=== PATIENT | female | born 1940 | race Caucasian/White ===

== ENCOUNTER 2019-10-10 10:33 | Outpatient (CLI) | payer MEDICARE, BC, SELFPAY ==
--- NOTE | 2019-10-10 10:47 | US_ITS ---
WS: [id number] ULTRASOUND BREAST RIGHT TECHNIQUE: Ultrasound right breast focused area of concern. CLINICAL INFORMATION: 6 MO F/U RT BREAST MASS COMPARISON: Mammogram April 19, 2019 and ultrasound April 19, 2019 FINDINGS: 6 month follow-up. Ultrasound right breast at the 11:00 to 1:00 position. Again seen are multiple tin y hypoechoic cystic appearing lesions. Previously described dominant complex cyst at the 12:30 positi on is no longer visualized today. A few tiny subcentimeter benign-appearing cysts. Surgical scar is n oted. No suspicious lesions. No lesions to target for biopsy. US/US breast RT limited* [id number] IMPRESSION: BI-RADS 2 benign FOLLOW UP: 1 year Recommend return to annual screening mammography
== END 2019-10-10 10:34 | disposition home or self-care (01) ==
LOC: RAD 10:42
PROVIDERS: Family Provider Family Medicine; PCP Family Medicine; Visit Provider Family Medicine
DX: N63.10 Unspecified lump in the right breast, unspecified quadrant (principal)
CPT/HCPCS: 76642

== ENCOUNTER 2020-03-30 19:36 | Inpatient (IN) | payer MEDICARE, BC, SELFPAY ==
--- NOTE | 2020-03-30 19:40 | XRR_ITS ---
PROCEDURE INFORMATION: Exam: XR Chest, 1 View Exam date and time: 03/30/2020 8:15 PM Age: 79 years old Clinical indication: Other: Dizzy; Additional info: Syncope today TECHNIQUE: Imaging protocol: XR of the chest Views: Frontal portable upright view of the chest. COMPARISON: CR Chest 1 [place] [id number] 05/29/2019 7:48 PM FINDINGS: Lungs: The pulmonary vasculature is stable. Coarse bilateral central pulmonary markings with mild architectural distortion. Mild left basilar pulmonary subsegmental atelectasis. The lungs are otherwise peripherally clear bilaterally. Pleural space: No pleural effusion. No pneumothorax. Heart/Mediastinum: The heart is normal in size and contour. Mediastinum: Stable. Vasculature: Mild tortuosity of the descending thoracic aorta. Bones/joints: Moderate aortic arch and descending thoracic aortic atherosclerotic calcification without ectasia. Severe left glenohumeral joint primary osteoarthritis. XR/XR chest 1V portable [id number] IMPRESSION: Mild left basilar pulmonary subsegmental atelectasis.
--- NOTE | 2020-03-30 19:41 | ECG_ITS ---
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 Measurements Intervals [place] Rate: 113 P: 48 MN: 140 QRS: 9 QRSD: 97 T: -14 QT: 370 QTc: 509 Interpretive Statements SINUS TACHYCARDIA WITH FREQUENT SUPRAVENTRICULAR PREMATURE COMPLEXES INFERIOR MYOCARDIAL INFARCTION , OF INDETERMINATE AGE [40+ ms Q WAVE AND/OR ST/T ABNORMALITY IN II/aVF] Compared to ECG 05/29/2019 22:30:32 Myocardial infarct finding now present T-wave abnormality no longer present Electronically Signed On 03-30-2020 20:34:31 CDT by Estee Champagne M.D. [id number]
[2020-03-30 19:46] VITALS: BP 185/127; PULSE 109; RESP 20; TEMP 37.6; O2SAT 94; BMI 24.9
--- NOTE | 2020-03-30 19:47 | CTR_ITS ---
PROCEDURE INFORMATION: Exam: CT Abdomen And Pelvis With Contrast Exam date and time: 03/30/2020 8:49 PM Age: 79 years old Clinical indication: Abdominal pain; Prior surgery; Surgery type: Gb, appy, ovary, hyst, colon; Patient HX: PT has bruising all over body from multiple falls; Additional info: Abdominal pain/rectal bleeding TECHNIQUE: Imaging protocol: Computed tomography of the abdomen and pelvis with intravenous contrast. Radiation optimization: All CT scans at this facility use at least one of these dose optimization techniques: automated exposure control; mA and/or kV adjustment per patient size (includes targeted exams where dose is matched to clinical indication); or iterative reconstruction. Contrast material: VISI 320; Contrast volume: 95 ml; Contrast route: INTRAVENOUS (IV); COMPARISON: CT abdomen pelvis w con* [id number] 02/20/2019 1:38 PM RADIATION DOSE METRICS: Total DLP (mGy-cm): 794 FINDINGS: Liver: Normal. No mass. Gallbladder and bile ducts: Cholecystectomy. Pancreas: Normal. No ductal dilation. Spleen: Normal. No splenomegaly. Adrenals: Normal. No mass. Kidneys and ureters: Left kidney benign cysts, no follow-up advised. Stomach and bowel: Descending colon wall thickening with some surrounding edema consistent with colitis. Diverticulosis without diverticulitis. Appendix: No evidence of appendicitis. Intraperitoneal space: Unremarkable. No free air. No significant fluid collection. Vasculature: Unremarkable. No abdominal aortic aneurysm. Lymph nodes: Unremarkable. No enlarged lymph nodes. Bladder: Unremarkable as visualized. Reproductive: Unremarkable as visualized. Bones/joints: Unremarkable. No acute fracture. Soft tissues: Unremarkable. CT/CT abdomen pelvis w con* [id number] IMPRESSION: 1. Descending colon colitis 2. Cholecystectomy. 3. Left kidney benign cysts, no follow-up advised. 4. Diverticulosis without diverticulitis. COMMENTS: Consistent with the [employer]'s Incidental Findings Committee white paper (J Am Geovanny Radiol 2018): Any incidental renal lesion less than 1.0 cm or classified as too small to characterize, or any incidental cystic renal lesion characterized as simple-appearing, is likely benign. No follow-up imaging is recommended for these lesions per consensus recommendations based on imaging criteria. Radiation Dose CTDIVOL = (mGy): DLP = 794 (mGy-cm)
--- NOTE | 2020-03-30 19:47 | CTR_ITS ---
PROCEDURE INFORMATION: Exam: CT Head Without Contrast Exam date and time: 03/30/2020 8:50 PM Age: 79 years old Clinical indication: Injury or trauma; Fall; Additional info: Fall/injury TECHNIQUE: Imaging protocol: Computed tomography of the head without contrast. Radiation optimization: All CT scans at this facility use at least one of these dose optimization techniques: automated exposure control; mA and/or kV adjustment per patient size (includes targeted exams where dose is matched to clinical indication); or iterative reconstruction. COMPARISON: CT head wo con* [id number] 05/29/2019 7:46 PM RADIATION DOSE METRICS: Total DLP (mGy-cm): 818.48 FINDINGS: Brain: Moderate diffuse white matter disease likely reflecting chronic microvascular ischemic changes. Ventricles: Normal. No ventriculomegaly. Bones/joints: Unremarkable. No acute fracture. Sinuses: Visualized sinuses are unremarkable. No fluid levels. Mastoid air cells: Visualized mastoid air cells are well aerated. Soft tissues: Right frontal scalp soft tissue swelling. CT/CT head wo con* [id number] IMPRESSION: 1. Negative for intracranial hemorrhage or mass effect. 2. Moderate diffuse white matter disease likely reflecting chronic microvascular ischemic changes. 3. Right frontal scalp soft tissue swelling. Radiation Dose CTDIVOL = (mGy): DLP = 818.48 (mGy-cm)
[2020-03-30 20:07] LABS: Basophils # 0.1 10^3/uL (0.0-0.1); Basophils % 0.3 %; Eosinophils # 0.1 10^3/uL (0.0-0.8); Eosinophils % 0.4 %; Hematocrit 30.8 % (37.0-47.0); Hemoglobin 10.6 g/dL (11.5-15.3); Lymphocytes # 1.3 10^3/uL (0.8-4.8); Lymphocytes % 7.6 %; Mean Corpuscular HGB Conc 34.4 g/dL (30.0-36.0); Mean Corpuscular Hemoglobin 31.3 pg (28.0-34.0); Mean Corpuscular Volume 90.9 fL (81-99); Mean Platelet Volume 10.3 fL (7.4-10.4); Monocytes # 1.2 10^3/uL (0.2-0.9); Monocytes % 7.1 %; Neutrophils # 13.98 10^3/uL (1.8-7.7); Neutrophils % 84.2 %; Nucleated Red Blood Cells % 0 %; Platelet Count 302 10^3/cmm (130-400); Red Blood Count 3.39 10^6/uL (4.1-5.3); Red Cell Distribution Width 13.5 % (12.1-15.1); White Blood Count 16.6 10^3/uL (4.0-10.0)
[2020-03-30 20:18] LABS: Alanine Aminotransferase 13 U/L (0-33); Albumin Level 4.4 g/dL (3.5-5.2); Alkaline Phosphatase 88 IU/L (35-105); Anion Gap 17.6 (5-19); Aspartate Amino Transferase 27 U/L (0-32); Blood Urea Nitrogen 17 mg/dL (8-23); Calcium 9.2 mg/dL (8.5-10.5); Carbon Dioxide 30 mmol/L (22-29); Chloride 89 mmol/L (98-107); Glucose 142 mg/dL (65-115); Magnesium 1.6 mg/dL (1.7-2.3); Osmolality Calculated 277 mOsm/kg (285-295); Sodium 134 mmol/L (136-145); Total Bilirubin 1.3 mg/dL (0.15-1.2); Total Protein 6.4 g/dL (6.6-8.7)
[2020-03-30 20:20] LABS: Troponin(5th) Baseline 28 ng/L (0-10)
[2020-03-30 20:25] LABS: Potassium 2.6 mmol/L (3.5-5.1)
[2020-03-30 20:34] LABS: INR 1.05 (0.8-1.2)
[2020-03-30 20:35] LABS: Partial Thromboplastin Time 30.9 SECONDS (23.9-36.7)
--- NOTE | 2020-03-30 20:48 | ED_ITS ---
HPI - Syncope General: Chief Complaint: Syncope Stated Complaint: SYNCOPAL EPISODE Time Seen by Provider: 03/30/20 19:39 Source: patient, family and EMS Mode of arrival: EMS Limitations: no limitations History of Present Illness: HPI narrative: Mrs. Malin is a 79-year-old female who comes in with multiple syncopal episodes. The patient has a history of orthostatic hypotension and at times in her life she has had multiple falls every time she tries to get up. Patient's has had numerous syncopal episodes the past 7 days according to her and her . Orthostatic blood pressures were checked by EMS and found to drop from 172 systolic down to 106. The patient has bruises in multiple areas including her face. The other other issues the patient complains of at this time is a some abdominal pain and she is also had some rectal bleeding. She denies any melena, hematemesis or chest pain or shortness of breath. Patient takes 2 different medications for her ortho static hypotension but she is not received any evaluation formally for this recently. Associated symptoms: Reports abdominal pain; Deny chest pain, fever(s), headache(s), nausea or vertigo Review of Systems Const: Denies: fever(s), chills, body aches, fatigue, malaise or diaphoresis Eyes: Denies: change in vision, blurry vision, blind spots, photophobia, eye discharge or eye redness ENMT: Denies: throat pain, odynophagia, hoarseness, swelling of lips/tongue, oral sores, ear or mastoid pain, ear discharge, change in hearing or nasal discharge Card: Reports: syncope; Denies: chest pain, palpitations, irregular heart rhythm, edema, pre-syncope, dyspnea on exertion or orthopnea Resp: Denies: dyspnea, productive cough, non-productive cough, wheezing, hemoptysis or chest congestion GI: Reports: abdominal pain and hematochezia; Denies: nausea, vomiting, hematemesis, coffee ground emesis, heartburn, diarrhea, constipation, GI cramping or melena : Denies: flank pain, dysuria, urinary frequency, urinary urgency or hematuria Musc: Denies: neck pain, back pain, extremity pain, extremity swelling, joint pain, joint swelling, joint redness, joint warmth or joint stiffness Skin/Breast: Denies: rash, pruritus, erythema, skin tenderness or jaundice Neuro: Denies: headache(s), numbness in extremities, weakness in extremities, sensory changes, lack of coordination, difficulty walking, dizziness, vertigo, confusion, Slurred speech present or seizure-like activity Asim/Lymph: Denies: easy bruising, easy bleeding, petechiae, purpura or enlarged lymph nodes All/Imm: Denies: urticaria, throat swelling, tongue swelling, facial swelling or acute wheezing PFSH ED PFSH: Medical History (Updated 03/30/20 @ 22:46 by Darline Aquino) Anxiety Hypertension Orthostatic syncope Seizures Vitamin D deficiency Surgical History H/O knee surgery H/O shoulder surgery H/O: hysterectomy S/P appendectomy S/P cholecystectomy Physical Exam Const: COMMON NORMALS: no acute distress, patient oriented x3, no limitations, healthy appearing and well nourished GENERAL APPEARANCE: cooperative, well kempt and well developed HENMT: COMMON NORMALS: normocephalic, atraumatic, external ears normal, EAC's normal and Normal external nose present HEAD & SCALP: normal to inspection, normocephalic and atraumatic FACE & SINUS: normal facial exam and face symmetric NOSE: Normal external nose present and Normal nares present EXTERNAL EAR: Yes external ears normal EXTERNAL AUDITORY CANAL: EAC's normal MOUTH: Normal oral and palatal mucosa present, lip normal and tongue normal Eye: COMMON NORMALS: Equal, round and reactive pupils present and conjunctivae normal GENERAL EYE: appearance normal, both eyes and all related structures ALIGNMENT: Yes alignment normal PERIORBITAL: periorbital findings normal EYELID: eyelids normal CONJUNCTIVA: Yes conjunctivae normal SCLERA: sclerae normal PUPIL: Yes Equal, round and reactive pupils present Neck/C-Spine: COMMON NORMALS: full ROM, no lymphadenopathy, supple, no meningeal signs and no JVD GENERAL: Yes normal visual inspection and Yes trachea midline Chest: COMMONS NORMALS: normal inspection of the chest and normal palpation of entire chest wall Resp: COMMON NORMALS: normal respiratory effort, No retractions and No use of accessory muscles EFFORT & INSPECTION: Yes able to speak in complete sentences and Yes symmetric chest movement AUSCULTATION: no crackles, no rales, no rhonchi and no wheezes Cardio: COMMON NORMALS: no JVD, regular rate, regular rhythm, S1 normal heart sound present and S2 normal heart sound present RATE: regular rate RHYTHM: regular rhythm HEART SOUNDS: S1 normal heart sound present, S2 normal heart sound present, no click, no gallops, no murmurs, no rubs and abnormal split S2 GI: COMMON NORMALS: Soft to palpation and No hepatosplenomegaly present PALPATION: Yes Soft to palpation, No Tenderness to palpation present (GI), No Guarding due to palpation present (GI), No Rigid due to palpation, Yes No hepatosplenomegaly present, No Hernia present, No Palpable mass present and No Pulsatile mass present : COMMON NORMALS: Yes no CVA tenderness BLADDER/KIDNEY EXAM: Yes no CVA tenderness EXTERNAL FEMALE EXAM: No Hernia present Back/Pelvis: COMMON NORMALS: no CVA tenderness, thoracic and lumbar spine normal to inspection, no thoracic nor lumbar tenderness and thoraco-lumbar ROM normal Extremity: COMMON NORMALS: normal to inspection, full ROM, capillary refill normal, no joint enlargement, no clubbing, cyanosis or edema and no calf tenderness Neuro: COMMON NORMALS: patient oriented x3, CN's II-XII intact bilaterally, moves all extremities, no focal motor deficits and no sensory deficits noted MENINGEAL SIGNS: Yes no meningeal signs SPEECH: speech normal Psych: COMMON NORMALS: mental status grossly normal, Normal thought process present, cooperative, normal affect, speech normal and activity/motor behavior normal APPEARANCE: Yes well kempt SPEECH: Yes normal speech THOUGHT PROCESS: Normal thought process present Skin: COMMON NORMALS: no rashes or lesions noted, turgor normal, no jaundice, no petechiae and no mottling NARRATIVE SKIN EXAM: Bruising noted throughout multiple stages of healing GENERAL SKIN EXAM: no rashes or lesions noted and turgor normal Course Vital Signs: Vital signs: Vital Signs Temperature 99.7 F H 03/30/20 19:46 Pulse Rate 110 H 03/30/20 21:26 Respiratory Rate 16 03/30/20 21:26 Blood Pressure 168/109 03/30/20 21:26 Pulse Oximetry 96 03/30/20 21:26 MDM - Syncope MDM Narrative: Medical decision making narrative: Patient's case was reviewed with Dr. Ordonez. He agrees to see the patient and admit. Patient is currently doing well on her IV infusion of fluids. Further care be dictated on an inpatient basis. Lab Data: Attestation: I reviewed the patient's lab results. Labs: Lab Results 03/30/20 03/30/20 03/30/20 Range/Units 18:50 18:50 18:50 WBC 16.6 H (4.0-10.0) 10^3/ uL RBC 3.39 L (4.1-5.3) 10^6/u L Hgb 10.6 L (11.5-15.3) g/dL Hct 30.8 L (37.0-47.0) % MCV 90.9 (81-99) fL MCH 31.3 (28.0-34.0) pg MCHC 34.4 (30.0-36.0) g/dL RDW 13.5 (12.1-15.1) % Plt Count 302 (130-400) 10^3/c mm MPV 10.3 (7.4-10.4) fL Neut % (Auto) 84.2 % Lymph % (Auto) 7.6 % Emmet % (Auto) 7.1 % Eos % (Auto) 0.4 % Baso % (Auto) 0.3 % Neut # (Auto) 13.98 H (1.8-7.7) 10^3/u L Lymph # (Auto) 1.3 (0.8-4.8) 10^3/u L Emmet # (Auto) 1.2 H (0.2-0.9) 10^3/u L Eos # (Auto) 0.1 (0.0-0.8) 10^3/u L Baso # (Auto) 0.1 (0.0-0.1) 10^3/u L Nucleated RBC % (a uto) 0 % Nucleated RBCs # 0.0 /100WBC PT (10.5-13.3) SECO NDS INR (0.8-1.2) APTT (23.9-36.7) SECO NDS Sodium 134 L (136-145) mmol/L Potassium 2.6 L* (3.5-5.1) mmol/L Chloride 89 L (98-107) mmol/L Carbon Dioxide 30 H (22-29) mmol/L Anion Gap 17.6 (5-19) BUN 17 (8-23) mg/dL Creatinine 1.1 H (0.5-0.9) mg/dL GFR Calculation Not Reportable Glucose 142 H (65-115) mg/dL Calculated Osmolal ity 277 L (285-295) mOsm/k g Lactic Acid (0.5-2.2) mmol/L Calcium 9.2 (8.5-10.5) mg/dL Magnesium 1.6 L (1.7-2.3) mg/dL Total Bilirubin 1.3 H (0.15-1.2) mg/dL AST 27 (0-32) U/L ALT 13 (0-33) U/L Alkaline Phosphata se 88 (35-105) IU/L Troponin T Baselin e 28 H (0-10) ng/L Troponin T 120 Min [place] (0-10) ng/L Delta Troponin T (0-10) ABS# Total Protein 6.4 L (6.6-8.7) g/dL Albumin 4.4 (3.5-5.2) g/dL Globulin 2.0 (1.3-4.6) g/dL Urine Color (Yellow) Urine Appearance (CLEAR) Urine pH (5-7) Ur Specific Gravit y (1.005-1.030) Urine Protein (Negative) Urine Glucose (UA) (Normal) Urine Ketones (Negative) Urine Blood (Negative) Urine Nitrate (Negative) Urine Bilirubin (NEGATIVE) Urine Urobilinogen (Negative) mg/dL Ur Leukocyte Jody ase (Negative) Urine RBC (0-2) /hpf Urine WBC (0-5) /hpf Ur Squamous Epith Cells (0-5) Amorphous Sediment Urine Bacteria (NONE) Blood Type Rho(D) Type Antibody Screen 03/30/20 03/30/20 03/30/20 Range/Units 18:50 20:10 20:29 WBC (4.0-10.0) 10^3/ uL RBC (4.1-5.3) 10^6/u L Hgb (11.5-15.3) g/dL Hct (37.0-47.0) % MCV (81-99) fL MCH (28.0-34.0) pg MCHC (30.0-36.0) g/dL RDW (12.1-15.1) % Plt Count (130-400) 10^3/c mm MPV (7.4-10.4) fL Neut % (Auto) % Lymph % (Auto) % Emmet % (Auto) % Eos % (Auto) % Baso % (Auto) % Neut # (Auto) (1.8-7.7) 10^3/u L Lymph # (Auto) (0.8-4.8) 10^3/u L Emmet # (Auto) (0.2-0.9) 10^3/u L Eos # (Auto) (0.0-0.8) 10^3/u L Baso # (Auto) (0.0-0.1) 10^3/u L Nucleated RBC % (a uto) % Nucleated RBCs # /100WBC PT 14.00 H (10.5-13.3) SECO NDS INR 1.05 (0.8-1.2) APTT 30.9 (23.9-36.7) SECO NDS Sodium (136-145) mmol/L Potassium (3.5-5.1) mmol/L Chloride (98-107) mmol/L Carbon Dioxide (22-29) mmol/L Anion Gap (5-19) BUN (8-23) mg/dL Creatinine (0.5-0.9) mg/dL GFR Calculation Glucose (65-115) mg/dL Calculated Osmolal ity (285-295) mOsm/k g Lactic Acid (0.5-2.2) mmol/L Calcium (8.5-10.5) mg/dL Magnesium (1.7-2.3) mg/dL Total Bilirubin (0.15-1.2) mg/dL AST (0-32) U/L ALT (0-33) U/L Alkaline Phosphata se (35-105) IU/L Troponin T Baselin e (0-10) ng/L Troponin T 120 Min [place] (0-10) ng/L Delta Troponin T (0-10) ABS# Total Protein (6.6-8.7) g/dL Albumin (3.5-5.2) g/dL Globulin (1.3-4.6) g/dL Urine Color Yellow (Yellow) Urine Appearance Clear (CLEAR) Urine pH 7 (5-7) Ur Specific Gravit y 1.010 (1.005-1.030) Urine Protein Neg (Negative) Urine Glucose (UA) Norm (Normal) Urine Ketones Negative (Negative) Urine Blood 3+ H (Negative) Urine Nitrate Negative (Negative) Urine Bilirubin Neg (NEGATIVE) Urine Urobilinogen Norm (Negative) mg/dL Ur Leukocyte Jody ase 1+ H (Negative) Urine RBC 0-4 H (0-2) /hpf Urine WBC 10-15 H (0-5) /hpf Ur Squamous Epith Cells 0-4 H (0-5) Amorphous Sediment Not Reportable Urine Bacteria Trace (NONE) Blood Type O Positive Rho(D) Type Positive Antibody Screen Negative 03/30/20 03/30/20 Range/Units 21:30 22:00 WBC (4.0-10.0) 10^3/ uL RBC (4.1-5.3) 10^6/u L Hgb (11.5-15.3) g/dL Hct (37.0-47.0) % MCV (81-99) fL MCH (28.0-34.0) pg MCHC (30.0-36.0) g/dL RDW (12.1-15.1) % Plt Count (130-400) 10^3/c mm MPV (7.4-10.4) fL Neut % (Auto) % Lymph % (Auto) % Emmet % (Auto) % Eos % (Auto) % Baso % (Auto) % Neut # (Auto) (1.8-7.7) 10^3/u L Lymph # (Auto) (0.8-4.8) 10^3/u L Emmet # (Auto) (0.2-0.9) 10^3/u L Eos # (Auto) (0.0-0.8) 10^3/u L Baso # (Auto) (0.0-0.1) 10^3/u L Nucleated RBC % (a uto) % Nucleated RBCs # /100WBC PT (10.5-13.3) SECO NDS INR (0.8-1.2) APTT (23.9-36.7) SECO NDS Sodium (136-145) mmol/L Potassium (3.5-5.1) mmol/L Chloride (98-107) mmol/L Carbon Dioxide (22-29) mmol/L Anion Gap (5-19) BUN (8-23) mg/dL Creatinine (0.5-0.9) mg/dL GFR Calculation Glucose (65-115) mg/dL Calculated Osmolal ity (285-295) mOsm/k g Lactic Acid 1.7 (0.5-2.2) mmol/L Calcium (8.5-10.5) mg/dL Magnesium (1.7-2.3) mg/dL Total Bilirubin (0.15-1.2) mg/dL AST (0-32) U/L ALT (0-33) U/L Alkaline Phosphata se (35-105) IU/L Troponin T Baselin e (0-10) ng/L Troponin T 120 Min [place] 25.46 H (0-10) ng/L Delta Troponin T -2.54 L (0-10) ABS# Total Protein (6.6-8.7) g/dL Albumin (3.5-5.2) g/dL Globulin (1.3-4.6) g/dL Urine Color (Yellow) Urine Appearance (CLEAR) Urine pH (5-7) Ur Specific Gravit y (1.005-1.030) Urine Protein (Negative) Urine Glucose (UA) (Normal) Urine Ketones (Negative) Urine Blood (Negative) Urine Nitrate (Negative) Urine Bilirubin (NEGATIVE) Urine Urobilinogen (Negative) mg/dL Ur Leukocyte Jody ase (Negative) Urine RBC (0-2) /hpf Urine WBC (0-5) /hpf Ur Squamous Epith Cells (0-5) Amorphous Sediment Urine Bacteria (NONE) Blood Type Rho(D) Type Antibody Screen Imaging Data^: CXR: My impression: No acute cardiopulmonary findings. CT Head: Radiologist's impression: [address] [place] [address] CT Scan Report Signed Patient: Leatha Malin Unit #: [id number] : 1940 Age/Sex: 79 / F ADM Date: 03/30/20 Loc: ER Room/Bed: Attending Dr: Ordering Provider/Ordering MD: Darline Aquino DO Date of Service: 03/30/20 Procedure(s): CT head wo con* [id number] Accession Number(s): [id number] Report Number: [id number] PROCEDURE INFORMATION: Exam: CT Head Without Contrast Exam date and time: 03/30/2020 8:50 PM Age: 79 years old Clinical indication: Injury or trauma; Fall; Additional info: Fall/injury TECHNIQUE: Imaging protocol: Computed tomography of the head without contrast. Radiation optimization: All CT scans at this facility use at least one of these dose optimization techniques: automated exposure control; mA and/or kV adjustment per patient size (includes targeted exams where dose is matched to clinical indication); or iterative reconstruction. COMPARISON: CT head wo con* [id number] 05/29/2019 7:46 PM RADIATION DOSE METRICS: Total DLP (mGy-cm): 818.48 FINDINGS: Brain: Moderate diffuse white matter disease likely reflecting chronic microvascular ischemic changes. Ventricles: Normal. No ventriculomegaly. Bones/joints: Unremarkable. No acute fracture. Sinuses: Visualized sinuses are unremarkable. No fluid levels. Mastoid air cells: Visualized mastoid air cells are well aerated. Soft tissues: Right frontal scalp soft tissue swelling. CT/CT head wo con* [id number] IMPRESSION: 1. Negative for intracranial hemorrhage or mass effect. 2. Moderate diffuse white matter disease likely reflecting chronic microvascular ischemic changes. 3. Right frontal scalp soft tissue swelling. Radiation Dose CTDIVOL = (mGy): DLP = 818.48 (mGy-cm) Dictated By: Edvin Navarrete MD Signed By: Edvin Navarrete MD Signed Date/Time: 03/30/202201 DD/ 00 CT Abd/Pel: Radiologist's impression: [address] [address] [address] Scan Report Signed Patient: Leatha Malin Unit #: [id number] : 1940 Age/Sex: 79 / F ADM Date: 03/30/20 Loc: ER Room/Bed: Attending Dr: Ordering Provider/Ordering MD: Darline Aquino DO Date of Service: 03/30/20 Procedure(s): CT abdomen pelvis w con* [id number] Accession Number(s): [id number] Report Number: [id number] PROCEDURE INFORMATION: Exam: CT Abdomen And Pelvis With Contrast Exam date and time: 03/30/2020 8:49 PM Age: 79 years old Clinical indication: Abdominal pain; Prior surgery; Surgery type: Gb, appy, ovary, hyst, colon; Patient HX: PT has bruising all over body from multiple falls; Additional info: Abdominal pain/rectal bleeding TECHNIQUE: Imaging protocol: Computed tomography of the abdomen and pelvis with intravenous contrast. Radiation optimization: All CT scans at this facility use at least one of these dose optimization techniques: automated exposure control; mA and/or kV adjustment per patient size (includes targeted exams where dose is matched to clinical indication); or iterative reconstruction. Contrast material: VISI 320; Contrast volume: 95 ml; Contrast route: INTRAVENOUS (IV); COMPARISON: CT abdomen pelvis w con* [id number] 02/20/2019 1:38 PM RADIATION DOSE METRICS: Total DLP (mGy-cm): 794 FINDINGS: Liver: Normal. No mass. Gallbladder and bile ducts: Cholecystectomy. Pancreas: Normal. No ductal dilation. Spleen: Normal. No splenomegaly. Adrenals: Normal. No mass. Kidneys and ureters: Left kidney benign cysts, no follow-up advised. Stomach and bowel: Descending colon wall thickening with some surrounding edema consistent with colitis. Diverticulosis without diverticulitis. Appendix: No evidence of appendicitis. Intraperitoneal space: Unremarkable. No free air. No significant fluid collection. Vasculature: Unremarkable. No abdominal aortic aneurysm. Lymph nodes: Unremarkable. No enlarged lymph nodes. Bladder: Unremarkable as visualized. Reproductive: Unremarkable as visualized. Bones/joints: Unremarkable. No acute fracture. Soft tissues: Unremarkable. CT/CT abdomen pelvis w con* [id number] IMPRESSION: 1. Descending colon colitis 2. Cholecystectomy. 3. Left kidney benign cysts, no follow-up advised. 4. Diverticulosis without diverticulitis. COMMENTS: Consistent with the [employer]'s Incidental Findings Committee white paper (J Am Geovanny Radiol 2018): Any incidental renal lesion less than 1.0 cm or classified as too small to characterize, or any incidental cystic renal lesion characterized as simple-appearing, is likely benign. No follow-up imaging is recommended for these lesions per consensus recommendations based on imaging criteria. Radiation Dose CTDIVOL = (mGy): DLP = 794 (mGy-cm) Dictated By: Edvin Navarrete MD Signed By: Edvin Navarrete MD Signed Date/Time: 03/30/202205 DD/ 03 EKG Data^: EKG 1: Attestation: I personally reviewed and interpreted this EKG as follows: EKG interpretation date: 03/30/20 EKG interpretation time: 20:34 Interpretation: Multifocal atrial tachycardia with a heart rate of 113, interventricular conduction delay, Discharge Plan Discharge Patient Disposition: Admitted As Inpatient Clinical Impression: Orthostatic syncope, Orthostasis, Colitis Condition: Stable Referrals: Demarcus Gallego Jr, MD [Primary Care Provider] - Coding Level of Care Code ED Project Reservoir Engineer for Chg Fwd Exam Comprehensive
[2020-03-30] MEDS: hydrocortisone 100 mg/2 mL SDV IVP (21:01)
[2020-03-30] MEDS: sodium chloride 0.9% 1,000 ML 999 ML IV (21:04)
[2020-03-30] MEDS: magnesium sulfate premix 2 GM/50 ML PIGGYBACK IV (21:04)
[2020-03-30] MEDS: potassium chloride premix 40 MEQ/100 ML PREMIX 25 MEQ IV (21:04)
[2020-03-30 21:06] LABS: Bilirubin Urine Neg (NEGATIVE); Blood Urine 3+ (Negative); Glucose Urine UA Norm (Normal); Ketones Urine Negative (Negative); Leukocyte Esterase Urine 1+ (Negative); Nitrate Urine Negative (Negative); Protein Urine Neg (Negative); Urine Appearance Clear (CLEAR); Urine Color Yellow (Yellow); Urobilinogen Urine Norm (Negative); pH Urine 7 (5-7)
[2020-03-30] MEDS: potassium chloride ER 10 mEq Tablet 40 MEQ PO (21:07)
[2020-03-30 21:10] LABS: Bacteria Urine TRACE; RBC Urine 0-4 /hpf (0-2); Squamous Epithelial Cell Urine 0-4 (0-5)
[2020-03-30 21:11] LABS: Add Urine Culture? No
[2020-03-30 21:26] VITALS: BP 168/109; PULSE 110; RESP 16; O2SAT 96
--- NOTE | 2020-03-30 21:41 | ECG_ITS ---
[facility] Test Date: 2020-03-30 Pat Name: Leatha Malin Department: Room: Gender: Female Insurance Claims Analyst: : 1940 Requested By: Darline Leahy Order Number: [id number] Daylin MD: Kofi Collado M.D. Measurements Intervals [place] Rate: 111 P: 38 ID: [id number] QRS: 3 QRSD: 92 T: -21 QT: 321 QTc: 437 Interpretive Statements SINUS TACHYCARDIA WITH OCCASIONAL VENTRICULAR PREMATURE COMPLEXES INFERIOR MYOCARDIAL INFARCTION , OF INDETERMINATE AGE [40+ ms Q WAVE AND/OR ST/T ABNORMALITY IN II/aVF] Compared to ECG 03/30/2020 20:34:19 Ventricular premature complex(es) now present Myocardial infarct finding still present Electronically Signed On 03-31-2020 20:44:24 CDT by Kofi Collado M.D. [email or web address]
[2020-03-30] MEDS: iodixanol 320 mg/mL 100mL Btl IV (21:48)
--- NOTE | 2020-03-30 22:22 | PM.HP ---
Providers/Chief Complaint Primary Care Provider: Demarcus Gallego Jr, MD Chief Complaint: SYNCOPAL EPISODE History of Present Illness Leatha Malin is a 79 year old female who has history of recurrent orthostasis, multiple falls in the past came in because of syncopal events. is at bedside who is stating that her syncopal event started about 3 years ago and no diagnosis has been made yet however she is on fludrocortisone and midodrine. She has had 7-10 episodes of syncopal events in last 48 hours, she has multiple bruises all over her face upper and lower extremities and left hip area. Patient is stating that she did not experience any nausea, vomiting, chest discomfort prodromal symptoms, her syncopal events happen whenever she tries to get up from her supine or sitting position. noticed excessive shaking before she passed out, her shaking subsides whenever she falls on the ground, no tongue biting or frothing noticed, occasional urinary/fecal incontinence also noted. In the past she has been seen by neurologist who discontinued her antiepileptic. She was discharged from the [facility] yesterday where she was evaluated for syncopal event as well as per the no echo was obtained and she was discharged home without change in her medications. As soon as patient got home she started having syncopal events and that is why she came to the [facility]. Diagnosis in the ER revealed hypertension, is stating he asked her to take 5 of Midrin today because of recurrent syncopal events, systolic blood pressure 170s, persistent sinus tachycardia with ectopic atrial beats, she is afebrile, multiple bruises all over her face and upper extremities, leukocytosis, anemia hemoglobin 10.6, sodium 134, potassium 2.6, alkalosis, creatinine 1.1, magnesium 1.6 She has been given ceftriaxone in the ER, magnesium and potassium supplementation High-dose stress dose steroids has been administered in the ER I would not obtain cortisol level at this point EKG showing sinus tachycardia CT abdomen revealed descending colitis without acute fracture of hip or rib Abnormal UA without symptoms of UTI, however patient is endorsing seeing gross blood in her urine yesterday, she is endorsing history of hemorrhoids Of note on review of previous records her Holter monitoring revealed bradycardia heart rate 54 tachycardia heart rate 119, she has never been diagnosed with sick sinus syndrome, no history of hypothyroidism, currently she is denying fever, nausea, vomiting diarrhea or use of antibiotics. Review of Systems Const: Reports: chills, body aches and fatigue; Denies: fever(s) Eyes: Denies: change in vision ENMT: Denies: throat pain Card: Reports: syncope and pre-syncope; Denies: chest pain, palpitations, irregular heart rhythm, dyspnea on exertion, orthopnea or leg pain with exertion Resp: Denies: dyspnea GI: Denies: abdominal pain, nausea or vomiting : Denies: flank pain, difficulty voiding or urinary urgency Musc: Denies: neck pain or back pain Skin/Breast: Reports: rash, new lesions and lesions (Multiple bruises at different healing level) Neuro: Denies: headache(s) Psych: Denies: anxiety or depression Endo: Denies: polyuria Asim/Lymph: Reports: easy bruising, petechiae and purpura All/Imm: Denies: urticaria Medications/Allergies Allergies Allergy/AdvReac Type Severity Reaction Status Date / Time levofloxacin [From Levaquin] Allergy Unknown Verified 03/30/20 19:46 PFSH Acute PFSH: Medical History Anxiety Hypertension Orthostatic syncope Seizures Vitamin D deficiency Surgical History H/O knee surgery H/O shoulder surgery H/O: hysterectomy S/P appendectomy S/P cholecystectomy Family History (Updated 03/30/20 @ 23:13 by Kofi Noyola MD) Denies family history of Diabetes Hyperlipidemia Hypertension Stroke Social History (Updated 03/30/20 @ 23:13 by Kofi Noyola MD) Smoking and tobacco status: never smoked Alcohol intake: never Substance/Drug Use: never Household members: spouse Housing: House Vitals/I&O/Wt Last Vital Signs Temp 99.7 F H 03/30/20 19:46 Pulse 110 H 03/30/20 21:26 Resp 16 03/30/20 21:26 BP 168/109 03/30/20 21:26 Pulse Ox 96 03/30/20 21:26 Weight last 48 hrs Weight 65.771 kg Physical Exam Narrative: EXAM NARRATIVE: Head to toe examination Patient laying comfortably in her bed Patient has multiple bruises all over her face, upper and lower extremities at different level of healing Lacerations on her nose and face noticed Petechia purpura of left hip area, right knee S1, S2 sinus tachycardia, clinically looks dehydrated Abdomen soft mild tenderness to deep palpation around left quadrant No adventitious sounds on lung auscultation bilateral breath sounds EOMI, PERRLA Positive orthostasis Hypertensive, sinus tachycardia Appropriate mood and affect No neurological deficit Data : 03/30/20 18:50 03/30/20 18:50 A&P Assessment and plan (1) Recurrent syncope: Status: Acute (2) Orthostasis: Status: Acute (3) Orthostatic syncope: Status: Acute (4) Hypokalemia: Status: Acute (5) Hypomagnesemia: Status: Acute Additional A&P Information Recurrent syncopal events Positive orthostasis, currently supine hypertension noted(took 5 doses of Midrin today) Hypokalemia, hypomagnesemia and absence of diarrhea, normal sodium level no acidosis found however 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, she has received stress dose steroid in the ER I would not obtain cortisol level at 8 AM We will check TSH, echo in the Telemetry monitoring overnight to rule out tachybradycardia syndrome: Current EKG showing ectopic atrial beats: She might be a candidate for pacemaker placement Stress dose steroids 50 mg hydrocortisone every 6 hours We will check d-dimer because of her persistent tachycardia however clinically she looks very dry and dehydrated continue IV fluid resuscitation Descending colitis No recent use of antibiotics, no fever, nausea vomiting or diarrhea Would use Zosyn for now for anaerobic and gram-negative coverage N.p.o. resume diet in the morning if she is able to tolerate Check C. difficile panel, stool culture Patient is endorsing history of hemorrhoids Hypokalemia, hypomagnesemia and alkalosis Patient looks dehydrated however no vomiting or diarrhea endorsed by the patient Patient is endorsing to poor p.o. 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 instead of alkalosis, and concurrent use of fludrocortisone should not cause this chronic electrolyte abnormality, I do suspect colitis to be the cause of electrolyte poor absorption Abnormal UA without symptoms of UTI: Patient denying dysuria, frequency Hematuria noted on UA CT abdomen revealed benign cyst without any nephrolithiasis Need outpatient follow-up for resolution of hematuria She is not a smoker History of seizures: is endorsing that she gets seizure-like activities before passing out which subsides on laying flat on the ground which I believe is secondary to syncopal event and lack of perfusion to cerebral parenchyma, she is off antiepileptics I would request medications from her pharmacy to make sure what medication she is on, patient is not able to recall her antiepileptic Full code DVT prophylaxis SCDs I would avoid using anticoagulation because of her active bruising and multiple laceration and recurrent falls Fall precaution N.p.o. for now advance diet in the morning: Blood sugar 142, lactic acid 1.7 Attestations Medical Necessity Statement*: Anticipating stay in the hospital course more than 2 midnights this is a complicated case of recurrent syncopal event for which she required extensive investigation, currently requiring IV antibiotics for descending colitis as well Time Spent in Patient Care: (>than 50% of time spent in counselling and/or direct pt care on unit). 60mins Coding Level of Care Code Acute Professional Services Specialist for Hong Lopez Diagnoses Recurrent syncope R55 Orthostasis I95.1 Orthostatic syncope I95.1 Hypokalemia E87.6 Hypomagnesemia E83.42
[2020-03-30 22:25] LABS: Troponin 5 2HR 25.46 ng/L (0-10)
[2020-03-30 22:30] LABS: Lactic Sepsis W/Reflex 1.7 mmol/L (0.5-2.2)
[2020-03-30 22:36] LABS: Troponin 5 2HR Delta -2.54 ABS# (0-10)
[2020-03-30] MEDS: piperacillin-tazobactam 3.375 GM in sodium chloride 0.9% (plus) 50 ML IV (23:56)
[2020-03-31] VITALS (12 sets, daily range): BP systolic 128–212; BP diastolic 83–103; PULSE 71–119; RESP 16–23; TEMP 36.8–37.8; O2SAT 86–98
[2020-03-31 00:11] LABS: D Dimer 5.85 ug/mIFEU (0-0.59)
--- NOTE | 2020-03-31 00:11 | PC.NURSE ---
called report to CSU nurse
--- NOTE | 2020-03-31 00:25 | PC.NURSE ---
Pt arrived via stretcher from ED. Pt RIVERA x 4. VSS. NAD. K rider 40 meq continued per ED. surveillance monitor applied. Call light within reach. 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
[2020-03-31 00:38] LABS: Thyroid Stimulating Hormone 0.79 uIU/mL (0.27-4.20)
[2020-03-31] MEDS: dextrose 5%-ns + KCl 40 40 MEQ/1,000 ML BAG 75 MEQ IV ×2 (01:32→14:34)
--- NOTE | 2020-03-31 01:41 | ECG_ITS ---
[facility] Test Date: 2020-03-31 Pat Name: Leatha Malin Department: Room: 112 Gender: Female Magnetic Healer: : 1940 Requested By: Darline Leahy Order Number: [id number] Mao MD: Kofi Collado M.D. Measurements Intervals [place] Rate: 98 P: 37 SC: 150 QRS: 16 QRSD: 93 T: 0 QT: 383 QTc: 490 Interpretive Statements SINUS RHYTHM PROBABLE INFERIOR MYOCARDIAL INFARCTION [35 ms Q WAVE IN II/aVF], OF INDETERMINATE AGE Compared to ECG 03/30/2020 23:04:05 Sinus tachycardia no longer present Ventricular premature complex(es) no longer present Myocardial infarct finding still present Electronically Signed On 03-31-2020 20:45:24 CDT by Kofi Collado M.D. [id number]
[2020-03-31 02:04] LABS: Troponin 5 6HR 23.32 ng/L (0-10)
[2020-03-31 02:31] LABS: Troponin 5 6HR Delta -4.68 ng/L (0-12)
[2020-03-31 04:24] LABS: Basophils % 0.1 %; Lymphocytes # 0.6 10^3/uL (0.8-4.8); Lymphocytes % 4.4 %; Mean Corpuscular HGB Conc 33.3 g/dL (30.0-36.0); Mean Corpuscular Hemoglobin 31.4 pg (28.0-34.0); Mean Corpuscular Volume 94.3 fL (81-99); Mean Platelet Volume 10.2 fL (7.4-10.4); Monocytes # 0.6 10^3/uL (0.2-0.9); Monocytes % 4.2 %; Neutrophils # 12.48 10^3/uL (1.8-7.7); Neutrophils % 90.6 %; Nucleated Red Blood Cells % 0 %; Platelet Count 255 10^3/cmm (130-400); Red Blood Count 3.18 10^6/uL (4.1-5.3); Red Cell Distribution Width 13.8 % (12.1-15.1); White Blood Count 13.8 10^3/uL (4.0-10.0)
--- NOTE | 2020-03-31 04:46 | CTR_ITS ---
PROCEDURE INFORMATION: Exam: CT Angiography Chest With Contrast Exam date and time: 03/31/2020 4:55 AM Age: 79 years old Clinical indication: Abnormal findings; Abnormal diagnostic tests; Elevated d-dimer; Additional info: Syncope TECHNIQUE: Imaging protocol: Computed tomographic angiography of the chest with intravenous contrast. 3D rendering: MIP and/or 3D reconstructed images were created by the technologist. Radiation optimization: All CT scans at this facility use at least one of these dose optimization techniques: automated exposure control; mA and/or kV adjustment per patient size (includes targeted exams where dose is matched to clinical indication); or iterative reconstruction. Contrast material: VISI; Contrast volume: 95 ml; Contrast route: INTRAVENOUS (IV); COMPARISON: CR XR chest 1V portable [id number] 03/30/2020 8:04 PM RADIATION DOSE METRICS: Total DLP (mGy-cm): 502.47 FINDINGS: Limitations: Streak artifacts from dense venous contrast. Less than optimal pulmonary arterial enhancement. Motion on multiple slices through the lung bases. Pulmonary arteries: No suggestion of a central or segmental pulmonary embolus. Aorta: Prominent atherosclerosis. No aortic aneurysm. Inadequate aortic opacification to exclude dissection. Lungs: Areas of interstitial marking prominence and/or honeycombing in the periphery of the lungs. Blebs in the periphery of the inferior right middle lobe. Calcified granuloma in the left lower lobe. No consolidation. Pleural space: No pneumothorax or pleural effusion. Heart: Cardiomegaly. Prominent left coronary artery calcifications. No pericardial effusion. Lymph nodes: Calcified mediastinal and bilateral hilar nodes. Gallbladder and bile ducts: Cholecystectomy. Bones/joints: Chronic appearance of the moderate to marked T12 compression fracture associated with mild retropulsion. Several old slight compression fractures also evident. Subacute fractures of the distal left 5th and 6th ribs. Acute fractures of the distal left 7th and 9th ribs and possibly the distal aspect of the left 8th rib; acute fractures of the proximal ends of the left 7th through 9th ribs also evident. Deformity of the left 12th rib suggesting an old fracture. Old fracture of the proximal end of the left 10th rib. Subchondral defects in each humeral head. Spurring of the left humeral head and degeneration of the left glenohumeral joint. Soft tissues: No acute finding. CT/CT angio chest PE protcl [id number] IMPRESSION: 1. No suggestion of a large pulmonary embolus on this somewhat limited study. 2. Patchy interstitial fibrosis in both lungs. 3. Cardiomegaly. Prominent left coronary artery calcifications. 4. Acute, subacute and old left rib fractures as detailed above. Old-appearing compression fractures. Other findings detailed above. Radiation Dose CTDIVOL = (mGy): DLP = 502.47 (mGy-cm)
[2020-03-31] MEDS: iodixanol 320 mg/mL 100mL Btl IV (04:56)
[2020-03-31 05:10] LABS: Anion Gap 11.7 (5-19); Blood Urea Nitrogen 11 mg/dL (8-23); Calcium 7.8 mg/dL (8.5-10.5); Carbon Dioxide 32 mmol/L (22-29); Chloride 99 mmol/L (98-107); Creatinine Clr Calc Pharmacy 48.8631; Glucose 169 mg/dL (65-115); Osmolality Calculated 290 mOsm/kg (285-295); Phosphorus 1.6 mg/dL (2.5-4.5); Sodium 140 mmol/L (136-145)
[2020-03-31 05:16] LABS: Potassium 2.7 mmol/L (3.5-5.1)
[2020-03-31] MEDS: hydrocortisone 100 mg/2 mL SDV 50 MG IVP ×3 (06:32→19:12)
[2020-03-31] MEDS: piperacillin-tazobactam 3.375 GM in sodium chloride 0.9% (plus) 50 ML IV ×2 (08:35→16:03)
[2020-03-31] MEDS: sennosides-docusate Tablet 1 TAB PO (08:36)
--- NOTE | 2020-03-31 10:06 | PC.CHAP ---
Pastoral Care Encounter/Spiritual Assessment Type of Contact [] Declined human resource intern visit [] Patient/Family/Request visit [] Outpatient visit [] Follow-up visit [] Physician referral [] Code/Alert [x] Routine visit [] Staff referral [] Actively dying [] Patient sleeping [] Family support [] [] Out of room [] Palliative care [] [x] Receiving care in room [] Pre-surgical visit [] Trauma [] Long length of stay [] ICU visit [] Other: Relational/Emotional Strength [] Patient feels connected with others/family/visitors/staff [x] Distress [] Loneliness/isolation [] Abandonment Spirituality of Patient [x] Person of Chanel [] Attends Yarsani of their Chanel [x] Believes in Prayer [] Reads Bible or Zoroastrianism materials [] There are Spiritual issues to be addressed Edge Gluer Interventions [x] Prayer [x] Active listening [x] Non-anxious presence [x] Spiritual/emotional support [] Crisis/trauma care [x] Spiritual counseling [] Bereavement support [] Provided bereavement packet [] Provided Bible/devotional materials [] Provided toy/stuffed animal, coloring book to patient or family member [] Provided Communion [] Anointing/Quincy [] Salvation [x] Completed spiritual assessment [] Other: Impact on Illness or Injury [] Angry [] Fearful [] Anxious [] Often cries [] Exhaustion [x] Unable to work [] Unable to attend gnosticist [] Unable to walk/stand [] Unable to read [x] Unable to drive [] Unable to eat/drink [] Unable to sleep [] Unable to be with family [] Patient intubated [] Other: Summary She was up set, hope I was able to comb her down, she was able to communicate her feels, to come in later doesn't when she can go home Time spent with patient 10 mins Pastoral Care Encounter/Spiritual Assessment Type of Contact [] Declined human resource intern visit [] Patient/Family/Request visit [] Outpatient visit [] Follow-up visit [] Physician referral [] Code/Alert [] Routine visit [] Staff referral [] Actively dying [] Patient sleeping [] Family support [] [] Out of room [] Palliative care [] [] Receiving care in room [] Pre-surgical visit [] Trauma [] Long length of stay [] ICU visit [] Other: Relational/Emotional Strength [] Patient feels connected with others/family/visitors/staff [] Distress [] Loneliness/isolation [] Abandonment Spirituality of Patient [] Person of Chanel [] Attends Yarsani of their Chanel [] Believes in Prayer [] Reads Bible or Zoroastrianism materials [] There are Spiritual issues to be addressed Edge Gluer Interventions [] Prayer [] Active listening [] Non-anxious presence [] Spiritual/emotional support [] Crisis/trauma care [] Spiritual counseling [] Bereavement support [] Provided bereavement packet [] Provided Bible/devotional materials [] Provided toy/stuffed animal, coloring book to patient or family member [] Provided Communion [] Anointing/Quincy [] Salvation [] Completed spiritual assessment [] Other: Impact on Illness or Injury [] Angry [] Fearful [] Anxious [] Often cries [] Exhaustion [] Unable to work [] Unable to attend gnosticist [] Unable to walk/stand [] Unable to read [] Unable to drive [] Unable to eat/drink [] Unable to sleep [] Unable to be with family [] Patient intubated [] Other: Summary Time spent with patient
--- NOTE | 2020-03-31 19:44 | PM.PN ---
Vitals/I&O/Wt Last Vital Signs Temp 98.6 F 03/31/20 15:59 Pulse 71 03/31/20 15:59 Resp 20 H 03/31/20 15:59 BP 201/99 03/31/20 15:59 Pulse Ox 92 03/31/20 15:59 03/31/20 03/31/20 03/31/20 06:59 14:59 22:59 Intake Total 1027.5 / 1027.5 240 / 1267.5 Balance 1027.5 / 1027.5 240 / 1267.5 Weight last 48 hrs Weight 65.771 kg Data : 03/31/20 03:25 03/31/20 03:25 A&P Assessment and plan (1) Recurrent syncope: Extreme orthostatic hypotension. Despite treatment supine hypertension with decline of almost 80 points millimeters mercury and systolic blood pressure on standing. Very big problem also was discussed with her she is very impulsive. Asking him about his opinion on her mental status, he reports that she asked him about a year ago that he will need to pay bills, he reports recently she has been more forgetful, also is very impulsive, and he noticed some personality changes where she would get upset at her family members sometimes for no reason, and become very angry. He reports multiple episodes of impulsive behavior after he is telling her to stay put, she will be getting up and telling him that he should not be controlling her, or just get up without telling him, and without a specific reason, when asked what she is doing, says just checking on something . This impulsivity unfortunately is leading to recurrent orthostatic hypotension episodes, leading to syncope, leading to multiple falls, as evidenced by bruising on her face, arms. Discussed with unfortunately given overall symptoms concern for additional underlying condition, possibly dementia with Lewy bodies, which may explain both her cognitive dysfunction, personality changes, but also episodes of syncope, as well as autonomic dysfunction with severe orthostatic hypotension. Discussed with him that unfortunately her lack of insight into the danger of her condition, as well as impulsivity, and cognitive dysfunction unfortunately at this time will require 24-hour supervision to prevent further episodes as well as due to risk of severe injury with disability, or requiring hospitalization or surgery to manage, or even life-threatening injury from occurring. Will ask discharge planning to see. Discussed also needs additional very close evaluation by neurologist to evaluate for this possible condition, or other possible conditions that may explain her symptoms, and perhaps may have some options for treatment. At this time continue cardiac monitoring. Does appear to have some PACs, possibly short runs of SVT. May benefit from repeat event monitoring. Follow-up echocardiogram results. Treat underlying infections including colitis, UTI. Status: Acute (2) Orthostasis: Severe orthostatic hypotension. Continue fludrocortisone, midodrine at this time. Supine hypertension, but still very severe decline in blood pressure and trying to stand. Unfortunately she is not amenable to instruction, with relating that multiple times was instructed by PCP, neurologist regarding dangers of orthostatic hypotension, syncope, falls, and given instructions for orthostatic precautions, but still does not follow them. As above. Status: Acute (3) Orthostatic syncope: As above. Status: Acute (4) Hypokalemia: Received replacement. Will give additional 40 mEq. Status: Acute (5) Hypomagnesemia: Replaced. Recheck in the morning. Status: Acute Additional A&P Information Hypophosphatemia: Ordered additional potassium phosphate. Recheck level. Elevated d-dimer: CTA without signs of PE. Pulmonary fibrosis: Noted Descending colitis: Continue Zosyn. Check C. difficile panel, stool culture. Trial of cardiac diet. Patient is endorsing history of hemorrhoid Need outpatient follow-up for resolution of hematuria She is not a smoker History of seizures: This was initially thought to be the cause of her recurrent syncope by her neurologist. Subsequently was found to have severe orthostatic hypotension here at [place], and seizure was no longer thought to be the cause. Antiepileptics were discontinued. Attestations Medical Necessity Statement*: Continue admission for assessment management of recurrent syncopal episodes, severe orthostatic hypotension, multiple electrolyte abnormality, treatment of infections including colitis, UTI. Coding Level of Care Code Acute Buffing Line Set Up Worker for Hong Lopez Diagnoses Recurrent syncope R55 Orthostasis I95.1 Orthostatic syncope I95.1 Hypokalemia E87.6 Hypomagnesemia E83.42
--- NOTE | 2020-03-31 23:45 | USCV_ITS ---
Leatha Malin Age: 79 Gender: F : 1940 Exam Date: 03/31/2020 05:27 Ordering Phys: Kofi Noyola MD Technologist: Rebeca Houston Exam Location: [facility] [place] Indication: RECURRENT SYNCOPE BP: 165 / 83 HR: 95 Rhythm: Sinus Technical Quality: Adequate MEASUREMENTS (Male / Female) Normal Values 2D ECHO LV Diastolic Diameter PLAX 2.6 cm 4.2 - 5.9 / 3.9 - 5.3 cm LV Systolic Diameter PLAX 2.2 cm LV Chamber Size 3.7 cm IVS Diastolic Thickness 1.6 cm 0.6 - 1.0 / 0.6 - 0.9 cm IVS Systolic Thickness 2.1 cm LVPW Diastolic Thickness 1.4 cm 0.6 - 1.0 / 0.6 - 0.9 cm LVPW Systolic Thickness 2.0 cm RV Chamber Size 2.7 cm LVOT Diameter 2.1 cm LV Ejection Fraction 2D Teich 38.3 % LV Ejection Fraction MOD 2C 64.5 % LV Ejection Fraction 2C AL 64.6 % LA Diameter 3.1 cm LA Width 2.8 cm LA Height 3.9 cm RA Width 2.8 cm RA Height 3.7 cm Aorta at Sinotubular Diameter 3.2 cm M-MODE LV Diastolic Diameter MM 5.0 cm 4.2 - 5.9 / 3.9 - 5.3 cm LV Systolic Diameter MM 3.4 cm LV Ejection Fraction MM Teich 60.5 % IVS Diastolic Thickness MM 1.3 cm 0.6 - 1.0 / 0.6 - 0.9 cm IVS Systolic Thickness MM 1.6 cm LVPW Diastolic Thickness MM 1.2 cm 0.6 - 1.0 / 0.6 - 0.9 cm LVPW Systolic Thickness MM 1.7 cm RV Diastolic Diameter MM 1.3 cm Aortic Annulus Diameter 3.3 cm LA Ao Ratio MM 0.9 MV E Point Septal Separation 0.6 cm DOPPLER AV Peak Velocity 125.0 cm/s LVOT Peak Velocity 89.0 cm/s AV Area Cont Eq vti 2.8 cm squared AV Area Cont Eq pk 2.4 cm squared MV Area PHT 4.3 cm squared MV E' Velocity 11.0 cm/s Mitral E to MV E' Ratio 14.9 Mitral E to LV E' Lateral Ratio 11.7 Mitral E to LV E' Septal Ratio 20.5 TR Peak Velocity 179.0 cm/s TR Peak Gradient 12.9 mmHg TR Mean Velocity 0.0 cm/s TR Mean Gradient 0.0 mmHg TR Velocity Time Integral 0.0 cm TV Peak E Velocity 61.0 cm/s Right Atrial Pressure 3.0 mmHg Pulmonary Artery Systolic Pressu 15.8 mmHg PV Peak Velocity 63.0 cm/s RV Acceleration Time 0.1 s RV Ejection Time 0.3 s RV AcT/ET 0.4 FINDINGS Left Ventricle Normal left ventricular size and systolic function, EF 71 %. Mild left ventricular hypertrophy. No regional wall motion abnormalities. Grade I/IV diastolic dysfunction (abnormal relaxation filling pattern), normal to mildly elevated filling pressures. Right Ventricle Normal right ventricular size and systolic function. Right Atrium The right atrium is normal in size. Left Atrium The left atrium is normal in size. Mitral Valve Thickened mitral valve. Mild mitral annular calcification. Trace mitral valve regurgitation. Aortic Valve Thickened aortic valve Tricuspid Valve Trace tricuspid valve regurgitation. Pulmonic Valve Trace pulmonary valve regurgitation. Pericardium Normal pericardium without effusion. Aorta Plaque seen in the ascending aorta. CONCLUSIONS Normal left ventricular size and systolic function, EF 71 %. Mild left ventricular hypertrophy. No regional wall motion abnormalities. Grade I/IV diastolic dysfunction (abnormal relaxation filling pattern), normal to mildly elevated filling pressures. Thickened mitral valve. Mild mitral annular calcification. Trace mitral valve regurgitation. Thickened aortic valve. Trace tricuspid and pulmonic valve regurgitation. Plaque seen in the ascending aorta. There is no pericardial effusion. There are no intracardiac masses. The PA pressure calculation is difficult because of the poor Doppler signals Compared to the study from 05/10/2018, the patient appears to be in atrial fibrillation during the current study Dr Scarlett Nolen MD FAC (Electronically Signed) Final Date: 31 March 2020 23:23 S
[2020-04-01] MEDS: piperacillin-tazobactam 3.375 GM in sodium chloride 0.9% (plus) 50 ML IV (01:07)
[2020-04-01] MEDS: hyDRALAzine 20 mg/mL INJ 1 mL 10 MG IVP (01:13)
[2020-04-01] MEDS: hydrocortisone 100 mg/2 mL SDV 50 MG IVP ×3 (01:13→20:03)
[2020-04-01 03:00] VITALS: BP 162/85; PULSE 97; RESP 20; TEMP 36.4; O2SAT 96
[2020-04-01 05:38] LABS: Basophils % 0.2 %; Hemoglobin 9.5 g/dL (11.5-15.3); Lymphocytes # 0.9 10^3/uL (0.8-4.8); Lymphocytes % 6.9 %; Mean Corpuscular HGB Conc 31.7 g/dL (30.0-36.0); Mean Corpuscular Hemoglobin 30.4 pg (28.0-34.0); Mean Corpuscular Volume 96.2 fL (81-99); Mean Platelet Volume 10.1 fL (7.4-10.4); Monocytes # 0.5 10^3/uL (0.2-0.9); Monocytes % 3.8 %; Neutrophils % 88.1 %; Nucleated Red Blood Cells % 0 %; Platelet Count 290 10^3/cmm (130-400); Red Blood Count 3.12 10^6/uL (4.1-5.3); Red Cell Distribution Width 14.4 % (12.1-15.1); White Blood Count 13.4 10^3/uL (4.0-10.0)
[2020-04-01] MEDS: dextrose 5%-ns + KCl 40 40 MEQ/1,000 ML BAG 75 MEQ IV ×2 (05:53→22:22)
[2020-04-01 05:58] LABS: Alanine Aminotransferase 15 U/L (0-33); Albumin Level 3.9 g/dL (3.5-5.2); Alkaline Phosphatase 87 IU/L (35-105); Anion Gap 13.6 (5-19); Aspartate Amino Transferase 38 U/L (0-32); Blood Urea Nitrogen 13 mg/dL (8-23); Calcium 8.2 mg/dL (8.5-10.5); Carbon Dioxide 28 mmol/L (22-29); Chloride 105 mmol/L (98-107); Globulin 3.2 g/dL (1.3-4.6); Glucose 154 mg/dL (65-115); Magnesium 1.8 mg/dL (1.7-2.3); Osmolality Calculated 297 mOsm/kg (285-295); Phosphorus 2.5 mg/dL (2.5-4.5); Sodium 144 mmol/L (136-145); Total Bilirubin 1.1 mg/dL (0.15-1.2); Total Protein 7.1 g/dL (6.6-8.7)
[2020-04-01 05:59] LABS: Potassium 2.6 mmol/L (3.5-5.1)
[2020-04-01] MEDS: potassium chloride premix 40 MEQ/100 ML PREMIX 25 MEQ IV (06:22)
[2020-04-01] MEDS: ALPRAZolam 0.25 mg Tablet PO (11:41)
[2020-04-01 15:00] VITALS: BP 180/91; PULSE 104; RESP 22; TEMP 36.7; O2SAT 94
[2020-04-01 15:12] VITALS: RESP 16
[2020-04-01] MEDS: morphine 4 mg/mL SDV 1 mL 2 MG IVP ×2 (15:12→22:30)
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
[2020-04-01] MEDS: metroNIDAZOLE 500 MG Tablet PO ×2 (15:22→20:35)
[2020-04-01] MEDS: sulfamethoxazole-trimeth DS 160-800 mg Tablet 1 TAB PO (18:04)
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
[2020-04-01] MEDS: levETIRAcetam 500 mg Tablet PO (19:39)
[2020-04-01 20:05] VITALS: BP 176/92; PULSE 112; RESP 18; TEMP 37.3; O2SAT 94
[2020-04-01 20:08] LABS: 25 Hydroxy Vitamin D 33 ng/mL (30-100); Vitamin B12 289 pg/mL (232-1245)
[2020-04-01 20:17] LABS: Glucose Point of Care 178 mg/dL (70-110)
[2020-04-01 20:18] LABS: Folate Level 11.1 ng/mL (4.8-37.3)
[2020-04-01 23:25] VITALS: BP 170/99; PULSE 95; RESP 14; TEMP 36.9
[2020-04-02] VITALS (12 sets, daily range): BP systolic 149–210; BP diastolic 97–119; PULSE 87–156; RESP 16–62; TEMP 36.4–37.3; O2SAT 91–95
[2020-04-02] MEDS: hydrocortisone 100 mg/2 mL SDV 50 MG IVP ×2 (02:51→09:36)
[2020-04-02 05:10] LABS: Basophils % 0.2 %; Eosinophils % 0.1 %; Hematocrit 28.2 % (37.0-47.0); Hemoglobin 8.9 g/dL (11.5-15.3); Lymphocytes # 0.9 10^3/uL (0.8-4.8); Mean Corpuscular HGB Conc 31.6 g/dL (30.0-36.0); Mean Corpuscular Hemoglobin 31.6 pg (28.0-34.0); Mean Platelet Volume 9.9 fL (7.4-10.4); Monocytes # 0.6 10^3/uL (0.2-0.9); Neutrophils # 10.54 10^3/uL (1.8-7.7); Neutrophils % 87.2 %; Nucleated Red Blood Cells % 0 %; Platelet Count 269 10^3/cmm (130-400); Red Blood Count 2.82 10^6/uL (4.1-5.3); Red Cell Distribution Width 14.6 % (12.1-15.1); White Blood Count 12.1 10^3/uL (4.0-10.0)
[2020-04-02 05:28] LABS: Alanine Aminotransferase 14 U/L (0-33); Albumin Level 3.6 g/dL (3.5-5.2); Alkaline Phosphatase 71 IU/L (35-105); Anion Gap 12.6 (5-19); Aspartate Amino Transferase 28 U/L (0-32); Blood Urea Nitrogen 13 mg/dL (8-23); Calcium 8.6 mg/dL (8.5-10.5); Carbon Dioxide 28 mmol/L (22-29); Chloride 105 mmol/L (98-107); Globulin 2.4 g/dL (1.3-4.6); Glucose 150 mg/dL (65-115); Osmolality Calculated 293 mOsm/kg (285-295); Potassium 3.6 mmol/L (3.5-5.1); Sodium 142 mmol/L (136-145); Total Bilirubin 0.6 mg/dL (0.15-1.2)
[2020-04-02 05:33] LABS: Magnesium 1.5 mg/dL (1.7-2.3); Phosphorus 3.3 mg/dL (2.5-4.5)
--- NOTE | 2020-04-02 08:45 | PC.SOCIAL ---
IMM Page 2 of IMM explained to patient. Initialed, dated and timed and placed in chart. Copy provided to patient.
[2020-04-02] MEDS: metroNIDAZOLE 500 MG Tablet PO (09:05)
[2020-04-02] MEDS: sulfamethoxazole-trimeth DS 160-800 mg Tablet 1 TAB PO (09:06)
[2020-04-02] MEDS: sennosides-docusate Tablet 1 TAB PO (09:06)
[2020-04-02] MEDS: ALPRAZolam 0.25 mg Tablet PO ×2 (09:06→17:43)
[2020-04-02] MEDS: levETIRAcetam 500 mg Tablet PO ×2 (09:06→17:43)
[2020-04-02] MEDS: morphine 4 mg/mL SDV 1 mL 2 MG IVP ×2 (11:37→22:13)
[2020-04-02] MEDS: dextrose 5%-ns + KCl 40 40 MEQ/1,000 ML BAG 75 MEQ IV (12:36)
--- NOTE | 2020-04-02 12:50 | XRR_ITS ---
PROCEDURE INFORMATION: Exam: XR Chest, 1 View Exam date and time: 04/02/2020 1:21 PM Age: 79 years old Clinical indication: Patient HX: S/o shortness of breath; Hypoxia TECHNIQUE: Imaging protocol: XR of the chest Views: Frontal portable upright view of the chest. COMPARISON: CR XR chest 1V portable [id number] 03/30/2020 8:04 PM FINDINGS: Tubes, catheters and devices: EKG leads are present overlying the chest. Lungs: Interval patchy airspace opacities most confluent in the left mid lung zone, left lung base and right suprahilar region. The pulmonary vasculature is more congested and ill-defined. Increased bibasilar subsegmental atelectasis. Pleural space: No pleural effusion. No pneumothorax. Heart/Mediastinum: The heart is normal in size and contour. Bones/joints: Moderate left glenohumeral joint primary osteoarthritis. Moderate aortic arch and descending thoracic aortic atherosclerotic calcification without ectasia. Other findings: Stable nonspecific sclerotic focus left proximal humeral neck. XR/XR chest 1V portable [id number] IMPRESSION: 1. Interval patchy airspace opacities bilaterally. Pneumonitis is difficult to exclude. Clinical correlation is recommended. 2. Increased pulmonary vascular congestion. 3. Increased bibasilar subsegmental atelectasis.
--- NOTE | 2020-04-02 15:03 | ECG_ITS ---
[facility] Test Date: 2020-04-02 Pat Name: Leatha Malin Department: Room: 253 Gender: Female Slide Maker: : [id number] Requested By: Alfonzo Hameed Order Number: [id number] Reading MD: Maxwell Bass M.D. Measurements Intervals [place] Rate: 142 P: 74 NE: 130 QRS: 72 QRSD: 85 T: -17 QT: 270 QTc: 416 Interpretive Statements SINUS TACHYCARDIA WITH OCCASIONAL ECTOPIC PREMATURE COMPLEXES, POSSIBLE ATRIAL FLUTTER LOW QRS VOLTAGE IN PRECORDIAL LEADS [QRS DEFLECTION < 1.0 mV IN CHEST LEADS] NONSPECIFIC ST & T-WAVE ABNORMALITY Compared to ECG 03/31/2020 02:19:21 Low QRS voltage now present T-wave abnormality now present Sinus rhythm no longer present Myocardial infarct finding no longer present Electronically Signed On 04-03-2020 16:14:17 CDT by Maxwell Bass M.D. [id number]
--- NOTE | 2020-04-02 15:09 | PM.NPN ---
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 She was very inquisitive about why people were so interested in her memory and things of that nature, and why they think she is out of it. We had another lengthy discussion about her following doctor?s recommendations about her jumping up or raising up quickly. She was cooperative while I performed a mini-mental status examination, and she scored 17 out of 30. She struggled with orientation, serial sevens, and even when I adjusted to ?world,? she still had difficulty with that. She did okay on delayed recall and had trouble copying the diagram. She also had difficulty with perseverating on some pieces of information, and clearly ignoring some other pertinent pieces of information. She endorsed depression and anxiety. We discussed the risks, benefits, and alternatives of initiating Lexapro, and she understood and agreed to proceed as is documented in this note. Mental Status Exam MSE Comments: This is a well-nourished, well-developed, elderly, white female, with limited dress, being in a hospital gown with limited grooming, and appropriate eye contact. No abnormal movements except for mild psychomotor retardation. Cooperative with exam in mild distress related to questions and her ability relative to them. Speech was normal rate and volume. Mood described as depressed and anxious; affect congruent. Thought process, organized. Thought content: patient denied any suicidal or homicidal ideation, there were no delusions reported or noted, patient denied any auditory or visual hallucinations. Attention, concentration, and memory appears impaired receiving a 17/30 on MMSE as identified above . She is alert and oriented times three. Insight and judgment are limited. Impulse control is limited. Vitals/I&O/Wt Last Vital Signs Temp 98.5 F 04/03/20 04:00 Pulse 87 04/03/20 04:15 Resp 35 H 04/03/20 04:49 BP 133/65 04/03/20 04:15 Pulse Ox 92 04/03/20 04:49 04/02/20 04/02/20 04/03/20 14:59 22:59 06:59 Intake Total 1240 / 1240 320 / 1560 250 / 1810 Output Total 200 / 200 1625 / 1825 Balance 1240 / 1240 120 / 1360 -1375 / -15 Physical Exam Urinary Catheter Management^: Fan Latex Free: Cath Placed During This Visit: yes Urinary Catheter Date of Insertion: 04/03/20 Urinary Catheter Time of Insertion: 00:00 Data NPU : 04/04/20 03:22 04/04/20 03:22 Micro: Microbiology 04/02/20 19:14 Blood Culture - Preliminary Blood SPECIMEN COLLECTED 04/02/20 19:14 Blood Culture - Preliminary Blood SPECIMEN COLLECTED Microbiology 04/02/20 19:14 Blood Blood Culture - Preliminary SPECIMEN COLLECTED 04/02/20 19:14 Blood Blood Culture - Preliminary SPECIMEN COLLECTED A&P Additional A&P Information (1) Orthostatic syncope: (2) Recurrent syncope: (3) Anxiety: This is a 79 year old, white female, with no history of significant mental health issues, with recent significant medical challenges over the last 3 ? years, who presents with adjustment disorder with mixed disturbance of emotion and conduct, depression, anxiety, and dementia and recent altered mental status, and some question of personality change with impulsivity leading to multiple at least subacute if not necessarily fully concussive head injuries. Continue current medication. except: start lexapro 10 mg po qam. Encourage individual, group, and milieu therapy. Continue q-15 minute checks for safety. (4) Depression: Attestations NPU Medical Necessity Statement*: N/A. We will defer medical necessity to the inpatient primary team, however we will continue to evaluate on whether patient needs ongoing geriatric psychiatric services. Coding Level of Care Code Acute Apprentice Carpenter for [facility]
[2020-04-02] MEDS: FUROsemide 10 mg/mL SDV 2mL 20 MG IVP ×3 (17:12→23:40)
[2020-04-02 17:18] LABS: Creatine Phosphokinase 405 U/L (26-192)
[2020-04-02 17:24] LABS: Glucose Point of Care 101 mg/dL (70-110)
[2020-04-02] MEDS: magnesium sulfate premix 2 GM/50 ML PIGGYBACK IV ×2 (17:44→17:59)
--- NOTE | 2020-04-02 17:48 | ECG_ITS ---
[facility] Test Date: 2020-04-02 Pat Name: Leatha Malin Department: Room: 253 Gender: Female Equal Opportunity Assistant: : 1940 Requested By: Alfonzo Hameed Order Number: [id number] Reading MD: Maxwell Bass M.D. Measurements Intervals [place] Rate: -1 P: ID: -1 QRS: 0 QRSD: -1 T: 0 QT: -1 QTc: Interpretive Statements Sinus rhythm with frequent PACs and PVCs Nonspecific ST and T wave changes Possible old inferior wall myocardial infarction ATYPICAL ECG WARNING: DATA QUALITY MAY AFFECT INTERPRETATION Compared to ECG 04/02/2020 16:18:07 T-wave abnormality no longer present Electronically Signed On 04-03-2020 16:14:51 CDT by Maxwell Bass M.D. [id number]
[2020-04-02] MEDS: metoprolol tartrate 1 mg/1 mL SDV 5 mL 5 MG IV (17:51)
--- NOTE | 2020-04-02 18:05 | P.PN_ITS ---
Subjective Subjective: Interval history: Today she actually appears more lucid. Is able to provide better history. Appears somewhat calmer, although does say that she is anxious. Says that she had a very good morning, then in the afternoon was noticed to be having more work of breathing. Noticed also being somewhat raspy . Today he also reports having a mild headache. She does endorse hi story of recurrent headaches in the past. Denies any chills, muscle aches. Has been having some associated dry cough. Vitals/I&O/Wt Last Vital Signs Temp 98.6 F 04/02/20 11:00 Pulse 113 H 04/02/20 11:00 Resp 16 04/02/20 11:37 BP 179/99 04/02/20 11:00 Pulse Ox 91 04/02/20 07:00 04/02/20 04/02/20 04/02/20 06:59 14:59 22:59 Intake Total 1240 / 1240 Balance 1240 / 1240 Physical Exam Const: COMMON NORMALS: no acute distress OTHER: She is more lucid today. HENMT: COMMON NORMALS: oropharynx normal HEAD & SCALP: other (Multiple bruises on her face and various stages of healing.) Neck/C-Spine: COMMON NORMALS: no JVD Resp: COMMON NORMALS: normal respiratory effort AUSCULTATION: rales (Coarse crackles bilaterally), wheezes (mild) and diminished lung sounds Cardio: COMMON NORMALS: no JVD, regular rhythm, S1 normal heart sound present, S2 normal heart sound present and No murmurs present (Cardio) RHYTHM: regular rhythm HEART SOUNDS: S1 normal heart sound present and S2 normal heart sound present GI: COMMON NORMALS: Normal to inspection, nondistended, normoactive bowel sounds present, Soft to palpation and non-tender PALPATION: Yes Soft to palpation Extremity: COMMON NORMALS: no joint enlargement and no pedal edema OTHER: Bruising on her arms Neuro: COMMON NORMALS: moves all extremities OTHER: Minimal cogwheel rigidity. Skin: COMMON NORMALS: no rashes or lesions noted GENERAL SKIN EXAM: no rashes or lesions noted Data : 04/02/20 05:00 04/02/20 05:00 A&P Assessment and plan (1) Hypoxia: Today noted oxygen saturations going in the 80s. Started on 3 L oxygen by nasal cannula with improvement. Normally not on oxygen. Noted also more tachycardic. Last night I see she had a fever of 100 Fahrenheit at 11 PM. This morning says that she had a very good morning, but subsequently was noted to have somewhat increased work of breathing. She reports feeling raspy . Has been having some associated dry cough. Today also reports having some mild headache. With 10 chest x-ray, with worsening cardiomegaly, bilateral patchy infiltrates. Some of this may be pulmonary edema secondary to IV fluid infusion that she had been receiving, possible acute diastolic congestive heart failure. This had been discontinued and she she was given a dose of Lasix 20 mg IV. At the same time fever would not be explained by this, and with dry cough, some headache, discussed with her suspicion for possible pneumonia, possibly viral. We did switch antibiotic over to Primaxin as discussed with her and her , to provide additional coverage for possible bacterial pneumonia, at the same time requested assessment by rapid flu testing, as well as coronavirus testing, as well as isolation, however, she declined both of rapid flu and coronavirus tests. For now will maintain isolation. Discussed with her . Monitor intake and output, oxygenation. Status: Acute (2) Fever: 100 Fahrenheit last night. Not explained reason, possibly UTI, possibly colitis, possibly pneumonia. We will request blood culture. Additional assessments were requested as above. Status: Acute (3) Tachycardia: Irregular tachycardia. She has been having on and off tachycardia, with changes in heart rates, as well as PACs. Some of this is thought to be secondary to autonomic dysfunction with concern for possible additional underly ing condition like multisystem atrophy. Today tachycardia has been somewhat worse, and as above noted also with some low-grade temp, and other symptoms. Concern is for additional underlying infection. EKG obtained, and there is some possibility of atrial flutter, although is not clearly seen. This evening heart rate is spiking up into 180s, subsequently coming down to 140s. Requested for 5 mg IV metoprolol at this time. We will add 25 mg metoprolol twice daily scheduled. She did receive additional replacement of hypokalemia today, as well as hypomagnesemia. Will recheck levels again as th rivas may be contributing to her episodes of tachycardia. Repeat twelve-lead EKG as well. Continue telemetry monitoring if possible as she had previously declined monitoring. Hold duloxetine. We also restarted her librium as her states she takes this quite a bit at home in case there is also some withdrawal. Status: Acute (4) Recurrent syncope: So far no recurrence in the hospital. Attempted to reach out to her neurologist Dr. Arndt at [facility] neurology, however, he has not been available, so spoke with 1 of the covering neurologist Dr. Marques. Per discussion with him as with recurrent episodes of syncope seizure disorder still cannot be excluded, suggested starting empirically on 500 mg twice a day K eppra, with additional follow-up for reassessment in office with Dr. Rebolledo. He agrees that perhaps addition condition MSA/Lewy body dementia may be considered, and may warrant additional evaluation by her neurologist. At this time he would avoid starting both anticholinergic medication and Keppra at the same time. He will orally these concerns to her neurologist so he may anticipate this during the office visit. Due to some of the noted cognitive dysfunction, poor safety awareness, impulsivity, we requested additional evaluation by our psychiatrist. Appreciate additional recommendations. Per neurologist also liberalize salt intake. Request compression stockings. Neurologist initially considered increasing fludrocortisone dose to allow for decrease in midodrine dose due to supine hypertension, however, she is already on 0.3 mg fludrocortisone. At this time we will leave these medications unchanged. reports some itching with midodrine. Elevate head of bed to avoid supine hypertension. Extreme orthostatic hypotension. Recently she has been more forgetful, also is very impulsive, and he noticed some personality changes where she would get upset at her family members sometimes for no reason, and become very angry. This impulsivity unfortunately is leading to recurrent orthostatic hypotension episodes, leading to syncope, leading to multiple falls, as evidenced by br uising on her face, arms. Discussed with unfortunately given overall symptoms concern for a dditional underlying condition, possibly dementia with Lewy bodies/MSA, which may explain both her cognitive dysfunction, personality changes, but also episodes of syncope, as well as autonomic dysfunction with severe orthostatic hypotension. Discussed with him that unfortunately her lack of insight into the danger of her condition, as well as impulsivity, and cognitive dysfunction unfortunately at this time will require 24-hour supervision to prevent further episodes as well as due to risk of severe injury with disability, or requiring hospitalization or surgery to manage, or even life-threatening injury from occurring. Will ask discharge planning to see. Discussed also needs additional very close evaluation by neurologist to evaluate for this possible condition, or other possible conditions that may explain her symptoms, and perhaps may have some options for treatment. At this time continue cardiac monitoring. Does appear to have some PACs, possibly short runs of SVT. May benefit from repeat event monitoring. Variability in heart rates appear to be related to the same problem with autonomic dysfunction with orthostatic hypotension. Echocardiogram with grade 1 diastolic dysfunction. Treat underlying infections including colitis, UTI, although she had removed her IV, declined additional IV medications, but on my discussion does agree to continue oral medications. Antibiotics switched to Bactrim and Flagyl. Status: Acute (5) Orthostasis: As above. Status: Acute (6) Orthostatic syncope: As above. Status: Acute (7) Hypokalemia: Received replacement. Replaced hypomagnesemia. Status: Acute (8) Hypomagnesemia: Replaced. Status: Acute Additional A&P Information Acute encephalopathy: Appears to have had some degree of acute encephalopathy on presentation, and perhaps this may be still ongoing, although today does appear better in terms of mental status. His Colmer, less pressured speech, more lucid, recalls more details about her day and history. Concern is some of this may have been secondary to infection, otherwise possibility of adverse drug effect with duloxetine. Discussed with her and he also states that she takes quite a bit of Librium sometimes, at least on a daily basis, perhaps more, and so due to consideration of possible withdrawal, will restart Librium as well as needed. She does report some anxiety today. Discussed with him that long- term this medication is not ideal given her age, as well as potential for tolerance development, as well as respiratory depression, mental status changes, etc. Verbalized understanding. Hypophosphatemia: Replaced. Elevated d-dimer: CTA without signs of PE. Pulmonary fibrosis: Noted Descending colitis: IV had been replaced. Currently antibiotics changed to P rimaxin. Check C. difficile panel, stool culture. Has been tolerating regular diet. Reports previously 1 episode of some blood in her stool, with history of hemorrhoid, but this had resolved without any recurrence. No diarrhea. Patient is endorsing history of hemorrhoid Need outpatient follow-up for resolution of hematuria She is not a smoker History of seizures: Per discussion with neurology at this time empirically cover with Radhara 500 mg twice daily. Attestations Medical Necessity Statement*: Continue admission for assessment management of hypoxia, fluid overload, possible diastolic congestive heart failure, possible pneumonia, as well as tachycardia, possible adverse drug reaction to duloxetine, as well as recurrent episodes of syncope, falls, severe orthostatic hypotension. Coding Level of Care Code Acute Cash Processor for [facility] Olived Diagnoses Hypoxia R09.02 Fever R50.9 Tachycardia R00.0 Recurrent syncope R55 Orthostasis I95.1 Orthostatic syncope I95.1 Hypokalemia E87.6 Hypomagnesemia E83.42
[2020-04-02] MEDS: metoprolol tartrate 25 mg Tablet PO (18:40)
[2020-04-02 19:40] LABS: Blood Urea Nitrogen 14 mg/dL (8-23); Calcium 8.7 mg/dL (8.5-10.5); Carbon Dioxide 26 mmol/L (22-29); Chloride 104 mmol/L (98-107); Glucose 120 mg/dL (65-115); Magnesium 2.1 mg/dL (1.7-2.3); Osmolality Calculated 291 mOsm/kg (285-295); Sodium 142 mmol/L (136-145)
--- NOTE | 2020-04-02 19:44 | PC.NURSE ---
Patient's blood pressure is elevated 197/105. Patient's nurse been notified.
[2020-04-02 20:03] LABS: Anion Gap 15.1 (5-19)
[2020-04-02 20:04] LABS: Potassium 3.1 mmol/L (3.5-5.1)
--- NOTE | 2020-04-02 22:22 | XRR_ITS ---
PROCEDURE INFORMATION: Exam: XR Chest, 1 View Exam date and time: 04/02/2020 10:46 PM Age: 79 years old Clinical indication: Shortness of breath; Patient HX: R/O covid; Additional info: SOB TECHNIQUE: Imaging protocol: XR of the chest Views: 1 view. COMPARISON: CR XR chest 1V portable [id number] 04/02/2020 1:29 PM FINDINGS: Lungs: Developing and increasing prominent airspace consolidation of the right upper lobe and significantly increased consolidation involving a large portion of the left perihilar mid lung and left lower lung. No large volume effusion. Pleural space: Unremarkable. No pleural effusion. No pneumothorax. Heart/Mediastinum: Cardiomegaly. Bones/joints: Degenerative change of the spine. Osteopenia. Degenerative change of both shoulders. XR/XR chest 1V portable [id number] IMPRESSION: 1. Increasing prominent airspace opacities within both lungs which could reflect areas of prominent airspace edema or pneumonia including atypical etiologies. 2. Cardiomegaly.
[2020-04-02 22:36] LABS: ABG PCO2 34.1 mmHg (35-45); ABG PH Result 7.52 (7.35-7.45); Arterial Blood Gas Hematocrit 32.3 % (37-47); Base Excess ABG 4.6 mmol/L (-2.0-2.0); Blood Gas Sample Type Arterial; HCO3 ABG 27.6 mmol/L (22-26)
[2020-04-02 22:37] LABS: Blood Gas Operator Identificat HARKR; Blood Gas Sample Site Brachial, left; Oxygen Device OXY MASK
[2020-04-02] MEDS: hyDRALAzine 20 mg/mL INJ 1 mL 10 MG IVP (22:49)
[2020-04-02] MEDS: LORazepam 2 mg/mL INJ 1 mL 0.5 MG IVP (22:49)
--- NOTE | 2020-04-02 23:01 | PC.NURSE ---
04/02/202301 This nurse contacted Dr. Noyola at 2201 with reports of patient blood pressure of 197/105, Dr. Noyola response was k no new orders received at this time. VIVIAN Montoya reported to this nurse patient complaint of back pain 04/13, this nurse went to charge nurse Faith to request morphine 2 mg IVP to be given to PT, Faith and I went into PT room to assess PT and admin meds, upon entering room we noticed patients RR was around 60 per min, We checked her O2 level and found it was in 62% on 2 L NC we turned her oxygen up to 10 L and Faith went to get the pt a oxymask. With the oxymask on 10 L PT's O2 sat was 76%, we notified Doctor Dennys and RT, and turned the PT's 02 up to 15 L. PT 02 sat was fluctuating in the 80's on 15 L oxymask. Dennys ordered BIPAP, ABG's, hyralazine 10 mg IVP, Ativan 0.5 mg IVP, Lasix 20 mg IVP, and chest x ray. Dennys then ordered pt transfer to ICU. VIVIAN Montoya and Krystal then gathered PT's belongings and tranferred PT off the floor to ICU at 2330. Bedside report given to Marium in ICU.
[2020-04-03] VITALS (175 sets, daily range): BP systolic 68–182; BP diastolic 48–114; PULSE 79–183; RESP 9–40; TEMP 36.9–39; O2SAT 78–100
[2020-04-03] MEDS: acetaminophen 325 mg Tablet 650 MG PO (00:09)
--- NOTE | 2020-04-03 00:34 | PC.PHAR ---
Pharmacokinetic dosing service Date: 04/02/20 Time: 29 Objective: Patient: Leatha Malin Floor: ICU-9 Age: 79 yo Serum creatinine: 1.1 mg/dL Height: 64.0 Inches Weight (kg): 65.771 Diagnosis: Relevant medical/social history: Cultures and sensitivities: Other labs: Assessment: IBW (kg): 54.70 Dosing wt(kg): 65.771 Estimated Creatinine clearance (ml/min): 37.0 CRCL method: Cockcroft and Gault using ibw(default). Drug selected: Vancomycin Loading dose (mg): 0 Vd (liters): 59.2 (factor used: 0.9 L/kg) Huber (hr-1): 0.035 Half life (hrs): 19.80 Recommended dose: 1250 mg Interval: 24 hrs Infusion time (hrs): 1.5 Predicted peak (mcg/mL): 36.2 Predicted trough (mcg/mL): 16.47 Total body weight is being used for vancomycin dosing. Renal function is stable [ ] /unstable [ ] Recommendations: Give Vancomycin 1250 mg q 24 hrs with an expected Cpeak of 36.2 mcg/ml and an expected Ctrough of 16.47 mcg/ml Renal dosing of other antibiotics (review renal dosing of other medications and list guidelines here): Thank you for the consult, will continue to follow. Signature: Nela Quezada [facility]
[2020-04-03] MEDS: chlordiazePOXIDE 10 mg Capsule PO (00:40)
[2020-04-03] MEDS: potassium chloride premix 40 MEQ/100 ML PREMIX 25 MEQ IV ×3 (00:46→10:21)
[2020-04-03] MEDS: lidocaine 1% INJ 20 mL 5 ML IV ×2 (00:47→06:05)
[2020-04-03 01:17] LABS: Influenza A by IFA Negative (Negative); Influenza B by IFA Negative (Negative)
[2020-04-03] MEDS: OLANZapine 10 mg VIAL IM (01:50)
--- NOTE | 2020-04-03 02:30 | PC.NURSE ---
summary of care [id number] Recieved patient from TYRA Roper. upon assessment, patient was abd breathing and very short of breath on oxymask at 15L/min. 1:1 sitter sitting in anti room. nurse placed Fan catheter with clear urine return of approximately 250ml out, 20mg Lasix IVP, abx hung, temp of 102.2. call to to inform of temp. PRN order for Tylenol given. RT at bedside and placed patient on Bipap. patient attempting to get out of bed. PRN librium given to patient. patient still attempting to get out of bed and pull at lines. call to to inform of patient status. Verbal order for 10mg Zyprexa IM given. will continue to monitor. vital signs WNL
--- NOTE | 2020-04-03 03:00 | P.EN_ITS ---
Event Note Event Note: I was informed regarding patient's respiratory distress She was desaturating and was requiring about 15 L of oxygen Stat x-ray was obtained along ABG which showed hypoxia and worsening of her infiltrate and vascular congestion Transferred to ICU, 40 IV Lasix given, added vancomycin for possible hospital- acquired pneumonia however difficult to delineate with underlying vascular congestion Currently doing well on BiPAP in the ICU
[2020-04-03 03:06] LABS: ABG PCO2 36.6 mmHg (35-45); ABG PH Result 7.52 (7.35-7.45); Arterial Blood Gas Hematocrit 36.8 % (37-47); Base Excess ABG 6.6 mmol/L (-2.0-2.0); Blood Gas Allen Test Pos; Blood Gas Sample Site Radial, right; Blood Gas Sample Type Arterial; HCO3 ABG 29.8 mmol/L (22-26); Oxygen Device BIPAP
[2020-04-03 04:28] LABS: Basophils % 0.3 %; Eosinophils # 0.1 10^3/uL (0.0-0.8); Eosinophils % 0.5 %; Hematocrit 29.1 % (37.0-47.0); Hemoglobin 9.4 g/dL (11.5-15.3); Lymphocytes # 1.5 10^3/uL (0.8-4.8); Lymphocytes % 11.2 %; Mean Corpuscular HGB Conc 32.3 g/dL (30.0-36.0); Mean Corpuscular Hemoglobin 30.9 pg (28.0-34.0); Mean Corpuscular Volume 95.7 fL (81-99); Monocytes # 0.8 10^3/uL (0.2-0.9); Monocytes % 6.1 %; Neutrophils # 11.09 10^3/uL (1.8-7.7); Neutrophils % 81.1 %; Nucleated Red Blood Cells % 0 %; Platelet Count 277 10^3/cmm (130-400); Red Blood Count 3.04 10^6/uL (4.1-5.3); Red Cell Distribution Width 14.1 % (12.1-15.1); White Blood Count 13.7 10^3/uL (4.0-10.0)
[2020-04-03 04:49] LABS: Alanine Aminotransferase 14 U/L (0-33); Albumin Level 3.5 g/dL (3.5-5.2); Alkaline Phosphatase 77 IU/L (35-105); Anion Gap 14.7 (5-19); Aspartate Amino Transferase 23 U/L (0-32); Blood Urea Nitrogen 16 mg/dL (8-23); Calcium 8.3 mg/dL (8.5-10.5); Carbon Dioxide 29 mmol/L (22-29); Chloride 100 mmol/L (98-107); Globulin 2.6 g/dL (1.3-4.6); Glucose 141 mg/dL (65-115); Osmolality Calculated 291 mOsm/kg (285-295); Sodium 141 mmol/L (136-145); Total Bilirubin 0.7 mg/dL (0.15-1.2); Total Protein 6.1 g/dL (6.6-8.7)
[2020-04-03] MEDS: HYDROmorphone 1 mg/mL INJ 1 mL 2 MG IVP (04:49)
[2020-04-03 04:58] LABS: Potassium 2.7 mmol/L (3.5-5.1)
--- NOTE | 2020-04-03 08:05 | PM.MISC ---
Miscellaneous Note Purpose of Documentation: Came to see Leatha and she was unable to communicate and I was able to contact Attending and we agreed to follow up tomorrow when she will be hopefully more communicative.
--- NOTE | 2020-04-03 10:03 | PM.PN ---
Subjective Subjective: Interval history: She is somewhat lethargic this morning. Does open her eyes, wake up, but falls promptly back asleep. Vitals/I&O/Wt Last Vital Signs Temp 99.4 F 04/03/20 08:00 Pulse 105 H 04/03/20 08:00 Resp 10 L 04/03/20 08:00 BP 121/70 04/03/20 08:00 Pulse Ox 95 04/03/20 08:00 04/02/20 04/03/20 04/03/20 22:59 06:59 14:59 Intake Total 320 / 1560 600 / 2160 0 / 0 Output Total 200 / 200 1625 / 1825 Balance 120 / 1360 -1025 / 335 0 / 0 Physical Exam Const: COMMON NORMALS: no acute distress GENERAL APPEARANCE: lethargic ORIENTATION/CONSCIOUSNESS: Yes lethargic HENMT: COMMON NORMALS: oropharynx normal HEAD & SCALP: other (Multiple bruises on her face and various stages of healing.) Neck/C-Spine: COMMON NORMALS: no JVD Resp: COMMON NORMALS: normal respiratory effort AUSCULTATION: rales (Coarse crackles bilaterally), wheezes (mild) and diminished lung sounds Cardio: COMMON NORMALS: no JVD, regular rhythm, S1 normal heart sound present, S2 normal heart sound present and No murmurs present (Cardio) RHYTHM: regular rhythm HEART SOUNDS: S1 normal heart sound present and S2 normal heart sound present GI: COMMON NORMALS: Normal to inspection, nondistended, normoactive bowel sounds present, Soft to palpation and non-tender PALPATION: Yes Soft to palpation Extremity: COMMON NORMALS: no joint enlargement and no pedal edema OTHER: Bruising on her arms Neuro: COMMON NORMALS: moves all extremities SENSORIUM/ORIENTATION: Yes lethargic OTHER: Minimal cogwheel rigidity. Psych: OTHER: She is somewhat less cooperative today. Can recall fewer details about her medical problems. Skin: COMMON NORMALS: no rashes or lesions noted GENERAL SKIN EXAM: no rashes or lesions noted Urinary Catheter Management^: Fan Latex Free: Cath Placed During This Visit: yes Reason for Continuing Indwelling Catheter: Accurate Measurement of Urinary Output in Critically Ill Patients Urinary Catheter Date of Insertion: 04/03/20 Urinary Catheter Time of Insertion: 00:00 Data : 04/03/20 04:05 04/03/20 04:05 Micro: Microbiology 07/30/20 19:14 Blood Culture - Preliminary Blood SPECIMEN COLLECTED 04/02/20 19:14 Blood Culture - Preliminary Blood SPECIMEN COLLECTED A&P Assessment and plan (1) Hypoxia: Acute respiratory failure with hypoxia. And are worsening patchy infiltrates bilaterally. Worse on the right. 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 Without is saturating in mid 90s. She is somewhat lethargic this morning. For now we will hold her anxiety and pain medications. Appears lethargy may be secondary to Zyprexa dose she received early in the morning. She only got 1 dose of Librium yesterday. We had given her 1 dose of 20 mg IV Lasix yesterday, and received subsequently 2 more doses. For now we will hold off on additional diuretic. We will hold fludrocortisone, however. I see that she initially declined, but appears eventually rapid flu and coronavirus testing were able to be collected. Rapid flu was negative. Antibiotic coverage was broadened overnight with addition of vancomycin. Continue Primaxin. For now will maintain n.p.o., aspiration precautions. Switch Keppra to IV. We will switch metoprolol to IV. Today noted oxygen saturations going in the 80s. Started on 3 L oxygen by nasal cannula with improvement. Normally not on oxygen. Noted also more tachycardic. Last night I see she had a fever of 100 Fahrenheit at 04/01. Attempted to reach her by phone for an update, but there was no answer. Status: Acute (2) Fever: 100 Fahrenheit 04/01. Suspected pneumonia, possibly viral. Due to possible bacterial pneumonia at this time continue antibiotic coverage as above. Blood culture. Additional assessments were requested as above. Status: Acute (3) Tachycardia: Replace potassium. Metoprolol IV as needed if persistent tachycardia above 120 bpm. Irregular tachycardia. She has been having on and off tachycardia, with changes in heart rates, as well as PACs. Some of this is thought to be secondary to autonomic dysfunction with concern for possible additional underlying condition like multisystem atrophy. Today tachycardia has been somewhat worse, and as above noted also with some low-grade temp, and other symptoms. Concern is for additional underlying infection. EKG obtained, and there is some possibility of atrial flutter, although is not clearly seen. Repeat twelve-lead EKG as well. Continue telemetry monitoring if possible as she had previously declined monitoring. Hold duloxetine. We also restarted her librium as her states she takes this quite a bit at home in case there is also some withdrawal. Status: Acute (4) Recurrent syncope: So far no recurrence in the hospital. At this time we will discontinue fludrocortisone temporarily as she is not currently mobilizing. May restart again once her acute condition somewhat improved. Monitor blood pressures. Attempted to reach out to her neurologist Dr. Rebolledo at [facility], however, he has not been available, so spoke with 1 of the covering neurologist Dr. Marques. Per discussion with him as with recurrent episodes of syncope seizure disorder still cannot be excluded, suggested starting empirically on 500 mg twice a day Keppra, with additional follow-up for reassessment in office with Dr. Rebolledo. He agrees that perhaps addition condition MSA/Lewy body dementia may be considered, and may warrant additional evaluation by her neurologist. At this time he would avoid starting both anticholinergic medication and Keppra at the same time. He will orally these concerns to her neurologist so he may anticipate this during the office visit. Due to some of the noted cognitive dysfunction, poor safety awareness, impulsivity, we requested additional evaluation by our psychiatrist. Appreciate additional recommendations. Per neurologist also liberalize salt intake. Request compression stockings. Neurologist initially considered increasing fludrocortisone dose to allow for decrease in midodrine dose due to supine hypertension, however, she is already on 0.3 mg fludrocortisone. At this time we will leave these medications unchanged. reports some itching with midodrine. Elevate head of bed to avoid supine hypertension. Extreme orthostatic hypotension. Recently she has been more forgetful, also is very impulsive, and he noticed some personality changes where she would get upset at her family members sometimes for no reason, and become very angry. This impulsivity unfortunately is leading to recurrent orthostatic hypotension episodes, leading to syncope, leading to multiple falls, as evidenced by bruising on her face, arms. Discussed with unfortunately given overall symptoms concern for additional underlying condition, possibly dementia with Lewy bodies/MSA, which may explain both her cognitive dysfunction, personality changes, but also episodes of syncope, as well as autonomic dysfunction with severe orthostatic hypotension. Discussed with him that unfortunately her lack of insight into the danger of her condition, as well as impulsivity, and cognitive dysfunction unfortunately at this time will require 24-hour supervision to prevent further episodes as well as due to risk of severe injury with disability, or requiring hospitalization or surgery to manage, or even life-threatening injury from occurring. Will ask discharge planning to see. Discussed also needs additional very close evaluation by neurologist to evaluate for this possible condition, or other possible conditions that may explain her symptoms, and perhaps may have some options for treatment. At this time continue cardiac monitoring. Does appear to have some PACs, possibly short runs of SVT. May benefit from repeat event monitoring. Variability in heart rates appear to be related to the same problem with autonomic dysfunction with orthostatic hypotension. Echocardiogram with grade 1 diastolic dysfunction. Treat underlying infections including colitis, UTI, although she had removed her IV, declined additional IV medications, but on my discussion does agree to continue oral medications. Antibiotics switched to Bactrim and Flagyl. Status: Acute (5) Orthostasis: As above. Status: Acute (6) Orthostatic syncope: As above. Status: Acute (7) Hypokalemia: Replacing again. Fludrocortisone will be held for now. Replaced hypomagnesemia. Status: Acute (8) Hypomagnesemia: Replaced. Status: Acute Additional A&P Information Acute encephalopathy: This is worse today, perhaps related to acute pneumonia, although alternatively did also receive a dose of Zyprexa last night. Continue to monitor mental status at this time. Will hold any of her medications that may affect mental status for now. Aspiration precautions. Additional investigations as above. Appears to have had some degree of acute encephalopathy on presentation, and perhaps this may be still ongoing, although today does appear better in terms of mental status. His [place], less pressured speech, more lucid, recalls more details about her day and history. Concern is some of this may have been secondary to infection, otherwise possibility of adverse drug effect with duloxetine. Discussed with her and he also states that she takes quite a bit of Librium sometimes, at least on a daily basis, perhaps more, and so due to consideration of possible withdrawal, will restart Librium as well as needed. She does report some anxiety today. Discussed with him that long-term this medication is not ideal given her age, as well as potential for tolerance development, as well as respiratory depression, mental status changes, etc. Hypophosphatemia: Replaced. Elevated d-dimer: CTA without signs of PE. Pulmonary fibrosis: Noted Descending colitis: IV had been replaced. Currently antibiotics changed to Primaxin. Check C. difficile panel, stool culture. Has been tolerating regular diet. Reports previously 1 episode of some blood in her stool, with history of hemorrhoid, but this had resolved without any recurrence. No diarrhea. Patient is endorsing history of hemorrhoid Need outpatient follow-up for resolution of hematuria She is not a smoker History of seizures: Per discussion with neurology at this time empirically cover with Keppra 500 mg twice daily. Attestations Medical Necessity Statement*: Continue admission for assessment management of acute respiratory failure with hypoxia, pneumonia, acute encephalopathy, colitis, UTI, and syncope episodes. Coding Level of Care Code Acute Estimating Manager for [facility] Fwd Exam Comprehensive Diagnoses Hypoxia R09.02 Fever R50.9 Tachycardia R00.0 Recurrent syncope R55 Orthostasis I95.1 Orthostatic syncope I95.1 Hypokalemia E87.6 Hypomagnesemia E83.42
[2020-04-03] MEDS: acetaminophen 650 mg Supp PR (12:35)
[2020-04-03] MEDS: dexmedetomidine 400 MCG in sodium chloride 0.9% (100 ml) 100 ML 5.1 MCG IV (18:24)
[2020-04-03] MEDS: sodium chloride 0.9% 1,000 ML 999 ML IV (19:16)
--- NOTE | 2020-04-03 19:20 | PC.NURSE ---
Call to physician upon entering room after report, patient heart rate maintaining around 150-180s. 1900 blood pressure 85/45. recycled blood pressure and got reading of 68/50. pt temperature 99.4. call to to update on patient status. verbal order to give 1000ml blous of normal saline. patient currently has 1:1 sitter in anti room, bilateral soft wrist restraints, mcfadden catheter in place and draining. patient awakens to verbal stimuli. will continue to monitor.
[2020-04-03] MEDS: metoprolol tartrate 1 mg/1 mL SDV 5 mL 5 MG IV (19:53)
[2020-04-03 21:07] LABS: Alanine Aminotransferase 11 U/L (0-33); Albumin Level 3.2 g/dL (3.5-5.2); Alkaline Phosphatase 74 IU/L (35-105); Anion Gap 13.6 (5-19); Aspartate Amino Transferase 17 U/L (0-32); Blood Urea Nitrogen 17 mg/dL (8-23); Calcium 8.7 mg/dL (8.5-10.5); Carbon Dioxide 29 mmol/L (22-29); Chloride 109 mmol/L (98-107); Globulin 2.7 g/dL (1.3-4.6); Glucose 129 mg/dL (65-115); Osmolality Calculated 302 mOsm/kg (285-295); Potassium 4.6 mmol/L (3.5-5.1); Sodium 147 mmol/L (136-145); Total Bilirubin 0.7 mg/dL (0.15-1.2); Total Protein 5.9 g/dL (6.6-8.7)
--- NOTE | 2020-04-03 22:06 | PC.NURSE ---
Call to Physician [id number] current vital signs HR:154 BP:106/68 RR:24 O2:100% TEMP: 98.5. patient appears to be breathing deeper than previous assessment by nurse. patient placed back on bipap. lungs sound the same as previous assessment. informed of patient status. no new orders per Will continue to monitor.
[2020-04-03] MEDS: lanolin oint 7 gm 1 APPLIC TOPICAL (23:17)
[2020-04-04] VITALS (95 sets, daily range): BP systolic 75–188; BP diastolic 56–115; PULSE 71–153; RESP 16–40; TEMP 36.9–37.5; O2SAT 84–100
[2020-04-04 04:45] LABS: Basophils % 0.4 %; Eosinophils # 0.2 10^3/uL (0.0-0.8); Eosinophils % 1.9 %; Hematocrit 34.6 % (37.0-47.0); Hemoglobin 11.2 g/dL (11.5-15.3); Lymphocytes # 0.8 10^3/uL (0.8-4.8); Lymphocytes % 9.3 %; Mean Corpuscular HGB Conc 32.4 g/dL (30.0-36.0); Mean Corpuscular Hemoglobin 32.1 pg (28.0-34.0); Mean Corpuscular Volume 99.1 fL (81-99); Mean Platelet Volume 10.7 fL (7.4-10.4); Monocytes # 0.5 10^3/uL (0.2-0.9); Monocytes % 5.3 %; Neutrophils # 7.34 10^3/uL (1.8-7.7); Neutrophils % 82.4 %; Nucleated Red Blood Cells % 0 %; Platelet Count 198 10^3/cmm (130-400); Red Blood Count 3.49 10^6/uL (4.1-5.3); Red Cell Distribution Width 14.6 % (12.1-15.1); White Blood Count 8.9 10^3/uL (4.0-10.0)
[2020-04-04] MEDS: metoprolol tartrate 1 mg/1 mL SDV 5 mL 5 MG IV ×2 (04:50→18:11)
[2020-04-04 05:00] LABS: Alanine Aminotransferase 11 U/L (0-33); Albumin Level 2.9 g/dL (3.5-5.2); Alkaline Phosphatase 76 IU/L (35-105); Aspartate Amino Transferase 19 U/L (0-32); Blood Urea Nitrogen 19 mg/dL (8-23); Calcium 7.8 mg/dL (8.5-10.5); Carbon Dioxide 25 mmol/L (22-29); Chloride 109 mmol/L (98-107); Creatinine Clr Calc Pharmacy 48.8631; Globulin 2.8 g/dL (1.3-4.6); Glucose 131 mg/dL (65-115); Magnesium 1.7 mg/dL (1.7-2.3); Osmolality Calculated 298 mOsm/kg (285-295); Sodium 145 mmol/L (136-145); Total Bilirubin 0.6 mg/dL (0.15-1.2); Total Protein 5.7 g/dL (6.6-8.7)
[2020-04-04 05:06] LABS: Anion Gap 14.8 (5-19); Potassium 3.8 mmol/L (3.5-5.1)
[2020-04-04] MEDS: magnesium sulfate premix 2 GM/50 ML PIGGYBACK IV (09:06)
--- NOTE | 2020-04-04 09:14 | XRR_ITS ---
PROCEDURE INFORMATION: Exam: XR Chest, 1 View Exam date and time: 04/04/2020 1:48 PM Age: 79 years old Clinical indication: Shortness of breath; Additional info: Hypoxia TECHNIQUE: Imaging protocol: XR of the chest Views: 1 view. COMPARISON: CR XR chest 1V portable [id number] 04/02/2020 10:32 PM FINDINGS: Lungs: Continued but improving multi focal bilateral airspace opacities are noted. Vascular congestion and cephalization of flow has improved but there is still probable mild interstitial CHF. Pleural space: There are trace pleural effusions. No pneumothorax. Heart/Mediastinum: The heart is enlarged. Bones/joints: Severe degenerative changes are noted in the spine and left shoulder. XR/XR chest 1V portable [id number] IMPRESSION: 1. Continued but improving multi focal bilateral airspace opacities are noted. 2. Vascular congestion and cephalization of flow has improved but there is still probable mild interstitial CHF.
--- NOTE | 2020-04-04 09:20 | PC.SOCIAL ---
IMM Updated Updated pt on Pg 2 IMM via phone. No questions voiced. Provided nurse a copy to give to pt. Signed, dated, & timed copy in chart.
[2020-04-04] MEDS: dexmedetomidine 400 MCG in sodium chloride 0.9% (100 ml) 100 ML 6.8 MCG IV (09:37)
--- NOTE | 2020-04-04 09:44 | P.PN_ITS ---
Subjective Subjective: Interval history: She is more lucid today. She is sleeping, but wakes up, complains of BiPAP being uncomfortable. Understands that she has been needing it, and is willing to continue for now until we can try to switch to high flow nasal cannula. Denies any pain. Had been pulling off BiPAP earlier and had to be placed in soft restraints. Vitals/I&O/Wt Last Vital Signs Temp 98.7 F 04/04/20 06:00 Pulse 82 04/04/20 08:18 Resp 23 H 04/04/20 06:00 BP 123/69 04/04/20 06:00 Pulse Ox 99 04/04/20 08:18 04/03/20 04/04/20 04/04/20 22:59 06:59 14:59 Intake Total 123.29 / 428.29 450 / 878.29 72.42 / 72.42 Output Total 200 / 550 300 / 850 Balance -76.71 / -121.71 150 / 28.29 72.42 / 72.42 Physical Exam Const: COMMON NORMALS: no acute distress GENERAL APPEARANCE: cooperative OTHER: Somnolent this morning, but more lucid. HENMT: COMMON NORMALS: oropharynx normal HEAD & SCALP: other (Multiple bruises on her face and various stages of healing.) Neck/C-Spine: COMMON NORMALS: no JVD Resp: COMMON NORMALS: normal respiratory effort AUSCULTATION: rales (Coarse crackles bilaterally), wheezes (mild) and diminished lung sounds Cardio: COMMON NORMALS: no JVD, regular rhythm, S1 normal heart sound present, S2 normal heart sound present and No murmurs present (Cardio) RHYTHM: regular rhythm HEART SOUNDS: S1 normal heart sound present and S2 normal heart sound present GI: COMMON NORMALS: Normal to inspection, nondistended, normoactive bowel sounds present, Soft to palpation and non-tender PALPATION: Yes Soft to palpation Extremity: COMMON NORMALS: no joint enlargement and no pedal edema OTHER: Bruising on her arms Neuro: COMMON NORMALS: moves all extremities OTHER: Minimal cogwheel rigidity. Skin: COMMON NORMALS: no rashes or lesions noted GENERAL SKIN EXAM: no rashes or lesions noted Urinary Catheter Management^: Fan Latex Free: Cath Placed During This Visit: yes Reason for Continuing Indwelling Catheter: Accurate Measurement of Urinary Output in Critically Ill Patients Urinary Catheter Date of Insertion: 04/03/20 Urinary Catheter Time of Insertion: 00:00 Data : 04/04/20 03:22 04/04/20 03:22 Micro: Microbiology 04/02/20 19:14 Blood Culture - Preliminary Blood NEGATIVE TO DATE 04/02/20 19:14 Blood Culture - Preliminary Blood NEGATIVE TO DATE 04/03/20 15:35 Blood Culture - Preliminary Blood SPECIMEN COLLECTED A&P Assessment and plan (1) Hypoxia: Stabilized. Did require BiPAP support overnight. Has been pulling her mask off, is required soft restraints. He is high flow will be tried this morning. Will repeat chest x-ray. Blood pressure was soft reported overnight, and required 1 L IV fluid bolus. For now monitor volume status. Try to transition to high flow cannula, and if able to resume oral diet. Hold off on additional fluids or diuresis. Continue empirically on antibiotics for possible bacterial pneumonia. Rapid flu was negative. COVID-19 testing is still pending. For now maintain in isolation. Hold fludrocortisone. If blood pressure dropping down lower, may restart at lower dose. For now will maintain n.p.o., aspiration precautions. Normally not on oxygen. Status: Acute (2) Fever: Pneumonia, possibly viral. Due to possible bacterial pneumonia at this time continue antibiotic coverage as above. Descending colitis. UTI. Blood culture. Additional assessments were requested as above. Status: Acute (3) Tachycardia: Replace hypokalemia, hypomagnesemia. Maintain potassium close to 4. Magnesium close to 2. Continue metoprolol IV for now until can resume oral diet. Treat for possible bacterial pneumonia, treat colitis, UTI. Irregular tachycardia, with sinus tachycardia, PACs. Currently is improved with replacement of electrolytes, improvement in oxygenation, as well as on Precedex. Continue Precedex. Some of this is thought to be secondary to autonomic dysfunction with concern for possible additional underlying condition like multisystem atrophy. Hold duloxetine due to concern for possible adverse effects. We also restarted her librium as her states she takes this quite a bit at home in case there is also some withdrawal. Status: Acute (4) Recurrent syncope: Fluids on hold for now, but may need to resume if becoming hypotensive. So far no recurrence in the hospital. At this time we will discontinue fludrocortisone temporarily as she is not currently mobilizing. May restart again once her acute condition somewhat improved. Monitor blood pressures. Attempted to reach out to her neurologist Dr. Rebolledo at [facility], however, he has not been available, so spoke with 1 of the covering neurologist Dr. Marques. Per discussion with him as with recurrent episodes of syncope seizure disorder still cannot be excluded, suggested starting empirically on 500 mg twice a day Keppra, with additional follow-up for reassessment in office with Dr. Rebolledo. He agrees that perhaps addition condition MSA/Lewy body dementia may be considered, and may warrant additional evaluation by her neurologist. At this time he would avoid starting both anticholinergic medication and Keppra at the same time. He will orally these concerns to her neurologist so he may anticipate this during the office visit. Due to some of the noted cognitive dysfunction, poor safety awareness, impulsivity, we requested additional evaluation by our psychiatrist. Appreciate additional recommendations. Per neurologist also liberalize salt intake. Request compression stockings. Neurologist initially considered increasing fludrocortisone dose to allow for decrease in midodrine dose due to supine hypertension, however, she is already on 0.3 mg fludrocortisone. At this time we will leave these medications unc hanged. reports some itching with midodrine. Elevate head of bed to avoid supine hypertension. Extreme orthostatic hypotension. Recently she has been more forgetful, also is very impulsive, and he noticed some personality changes where she would get upset at her family members sometimes for no reason, and become very angry. This impulsivity unfortunately is leading to recurrent orthostatic hypotension episodes, leading to syncope, leading to multiple falls, as evidenced by bruising on her face, arms. Discussed with unfortunately given overall symptoms concern for additional underlying condition, possibly dementia with Lewy bodies/MSA, which may explain both her cognitive dysfunction, personality changes, but also episodes of syncope, as well as autonomic dysfunction with severe orthostatic hypotension. Discussed with him that unfortunately her lack of insight into the danger of her condition, as well as impulsivity, and cognitive dysfunction unfortunately at this time will require 24-hour supervision to prevent further episodes as well as due to risk of severe injury with disability, or requiring hospitalization or surgery to manage, or even life-threatening injury from occurring. Will ask discharge planning to see. Discussed also needs additional very close evaluation by neurologist to evaluate for this possible condition, or other possible conditions that may explain her symptoms, and perhaps may have some options for treatment. At this time continue cardiac monitoring. Does appear to have some PACs, possibly short runs of SVT. May benefit from repeat event monitoring. Variability in heart rates appear to be related to the same problem with auto nomic dysfunction with orthostatic hypotension. Echocardiogram with grade 1 diastolic dysfunction. Treat underlying infections including colitis, UTI, although she had removed her IV, declined additional IV medications, but on my discussion does agree to continue oral medications. Antibiotics switched to Bactrim and Flagyl. Status: Acute (5) Orthostasis: As above. Status: Acute (6) Orthostatic syncope: As above. Status: Acute (7) Hypokalemia: Replacing again. Fludrocortisone will be held for now. Replaced hypomagnesemia. Status: Acute (8) Hypomagnesemia: Replaced. Status: Acute Additional A&P Information Acute encephalopathy: Fluctuating mental status. Today appears to be slightly better. Was very confused. Combative last night. Required starting of Precedex drip. This appears likely multifactorial, with acute encephalopathy secondary to acute infection with pneumonia, colitis, UTI, with delirium suspected also superimposed on top of chronic developing dementia, also possible adverse drug effect from duloxetine on admission, currently agitation may have been secondary to withdrawal. Possibility of benzodiazepine withdrawal. Has had Xanax ordered, however, has not been taking diet p.o. Will order low-dose as needed IV Ativan. Hypophosphatemia: Replaced. Elevated d-dimer: CTA without signs of PE. Pulmonary fibrosis: Noted Descending colitis: IV had been replaced. Currently antibiotics changed to Primaxin. Check C. difficile panel, stool culture. Has been tolerating regular diet. Reports previously 1 episode of some blood in her stool, with history of hemorrhoid, but this had resolved without any recurrence. No diarrhea. Patient is endorsing history of hemorrhoid Need outpatient follow-up for resolution of hematuria She is not a smoker History of seizures: Per discussion with neurology at this time empirically cover with Keppra 500 mg twice daily. Attestations Medical Necessity Statement*: Continue admission for assessment management of respiratory failure with hypoxia, acute encephalopathy, pneumonia, colitis, UTI, in the setting of recurrent syncope, severe orthostatic hypotension and autonomic dysfunction. Coding Level of Care Code Acute Automotive Service Technician for [facility] Diagnoses Hypoxia R09.02 Fever R50.9 Tachycardia R00.0 Recurrent syncope R55 Orthostasis I95.1 Orthostatic syncope I95.1 Hypokalemia E87.6 Hypomagnesemia E83.42
[2020-04-04] MEDS: potassium chloride premix 40 MEQ/100 ML PREMIX 25 MEQ IV (10:15)
[2020-04-04] MEDS: LORazepam 2 mg/mL INJ 1 mL 0.5 MG IVP ×3 (10:17→22:37)
--- NOTE | 2020-04-04 13:16 | PM.NPN ---
Subjective NPU Subjective: Interval history: Leatha presented today in the ICU more with it than yesterday, so I was able to speak with her. I attempted to review with her how she felt she was doing with the Lexapro, but it was being held after she had the response that she had. In her report, she does not believe she needs any medication, she thinks she is fine, she was fairly irritable, and seemed to be angry about each question. When we talked about her , she spoke of him in the same way she did the first day when he was there, very angrily, saying that he does not care about her, that he likes that she is sick, and very much seeming to scape goat him. When we talked about her children, they were much idealized. She said she did not really want to talk much about it, she feels that she is doing fine. I tried to discuss the situation with her getting up and causing these multiple head injuries, and she basically more or less said she would be fine. Mental Status Exam MSE Comments: This is a well-nourished, well-developed, elderly, white female, with a hospital gown on with limited grooming, and eye contact. No abnormal movements except for psychomotor agitation. Semi-cooperative with exam in mild distress. Speech was increased rate, normal volume. Mood described as fine; affect irritable. Thought process, organized. Thought content: patient denied any suicidal or homicidal ideation, there were no delusions reported or noted, patient denied any auditory or visual hallucinations. Attention, concentration, and memory appeared intact but were not formally tested. Alert and oriented times three. Insight and judgment are limited. Impulse control is limited. Vitals/I&O/Wt Last Vital Signs Temp 98.5 F 04/04/20 16:00 Pulse 89 04/04/20 16:00 Resp 29 H 04/04/20 16:00 BP 163/97 04/04/20 16:00 Pulse Ox 97 04/04/20 16:00 Physical Exam Urinary Catheter Management^: Fan Latex Free: Cath Placed During This Visit: yes Reason for Continuing Indwelling Catheter: Accurate Measurement of Urinary Output in Critically Ill Patients Urinary Catheter Date of Insertion: 04/03/20 Urinary Catheter Time of Insertion: 00:00 Data NPU : 04/06/20 03:28 04/06/20 03:28 Micro: Microbiology 04/02/20 23:56 Urine Culture - Final Urine Catheterized Microbiology 04/02/20 23:56 Urine Catheterized Urine Culture - Final A&P Additional A&P Information (1) Orthostatic syncope: (2) Recurrent syncope: (3) Anxiety: This is a 79 year old, white female, with no history of significant mental health issues, with recent significant medical challenges over the last 3 ? years, who presents with adjustment disorder with mixed disturbance of emotion and conduct, depression, anxiety, and dementia and recent altered mental status, and some question of personality change with impulsivity leading to multiple at least subacute if not necessarily fully concussive head injuries. Continue current medication. except: start lexapro 10 mg po qam. Encourage individual, group, and milieu therapy. Continue q-15 minute checks for safety. (4) Depression: Attestations NPU Medical Necessity Statement*: N/A. We will defer medical necessity to the inpatient primary team, however we will continue to evaluate on whether patient needs ongoing geriatric psychiatric services. Coding Level of Care Code Acute Supervisor [employer] for Hong Lopez
[2020-04-04 14:17] LABS: Coronavirus Lab Test PTC SEE REPORT
[2020-04-04] MEDS: ketorolac 30 mg/mL INJ 15 MG IVP (19:43)
[2020-04-04] MEDS: hyDRALAzine 20 mg/mL INJ 1 mL 10 MG IVP (19:43)
[2020-04-04] MEDS: HYDROmorphone 1 mg/mL INJ 1 mL 2 MG IVP (22:37)
[2020-04-04] MEDS: ALPRAZolam 0.25 mg Tablet PO (23:28)
--- NOTE | 2020-04-04 23:58 | PC.NURSE ---
Pt has progressively gotten more anxious and agitated as the shift goes on. Pt continues to c/o a severe headache. has been notified and orders received. Pt has been repeatedly offered an ice pack as well as cool wash cloth for her eyes/forehead.
[2020-04-05] VITALS (56 sets, daily range): BP systolic 100–187; BP diastolic 59–127; PULSE 72–141; RESP 16–55; TEMP 36.6–38.9; O2SAT 82–100
[2020-04-05] MEDS: metoprolol tartrate 1 mg/1 mL SDV 5 mL 5 MG IV ×2 (00:06→16:07)
--- NOTE | 2020-04-05 03:29 | PC.NURSE ---
Pt calmed down a bit with precidex titration and PO xanax. Pt continues to try to get out of bed, remove pulse ox and BP cuff, as well as pulling on IV tubing.
[2020-04-05] MEDS: HYDROmorphone 1 mg/mL INJ 1 mL 2 MG IVP (04:04)
[2020-04-05] MEDS: dexmedetomidine 400 MCG in sodium chloride 0.9% (100 ml) 100 ML 8.6 MCG IV (04:15)
[2020-04-05 04:49] LABS: Basophils % 0.4 %; Eosinophils # 0.3 10^3/uL (0.0-0.8); Eosinophils % 2.9 %; Hemoglobin 9.3 g/dL (11.5-15.3); Lymphocytes # 1.2 10^3/uL (0.8-4.8); Lymphocytes % 12.1 %; Mean Corpuscular Hemoglobin 31.1 pg (28.0-34.0); Mean Corpuscular Volume 100.3 fL (81-99); Mean Platelet Volume 10.4 fL (7.4-10.4); Monocytes # 0.6 10^3/uL (0.2-0.9); Monocytes % 6.4 %; Neutrophils # 7.66 10^3/uL (1.8-7.7); Neutrophils % 77.6 %; Nucleated Red Blood Cells % 0 %; Platelet Count 302 10^3/cmm (130-400); Red Blood Count 2.99 10^6/uL (4.1-5.3); Red Cell Distribution Width 14.4 % (12.1-15.1); White Blood Count 9.9 10^3/uL (4.0-10.0)
[2020-04-05 05:06] LABS: Alanine Aminotransferase 9 U/L (0-33); Albumin Level 3.4 g/dL (3.5-5.2); Alkaline Phosphatase 87 IU/L (35-105); Anion Gap 14.8 (5-19); Aspartate Amino Transferase 20 U/L (0-32); Blood Urea Nitrogen 18 mg/dL (8-23); Calcium 8.4 mg/dL (8.5-10.5); Carbon Dioxide 27 mmol/L (22-29); Chloride 104 mmol/L (98-107); Creatinine Clr Calc Pharmacy 48.8631; Globulin 3.3 g/dL (1.3-4.6); Glucose 131 mg/dL (65-115); Osmolality Calculated 292 mOsm/kg (285-295); Potassium 3.8 mmol/L (3.5-5.1); Sodium 142 mmol/L (136-145); Total Bilirubin 0.8 mg/dL (0.15-1.2); Total Protein 6.7 g/dL (6.6-8.7)
[2020-04-05] MEDS: acetaminophen 325 mg Tablet 650 MG PO ×3 (08:53→23:59)
[2020-04-05] MEDS: sennosides-docusate Tablet 1 TAB PO (08:53)
[2020-04-05] MEDS: ALPRAZolam 0.25 mg Tablet PO ×2 (08:53→15:16)
[2020-04-05] MEDS: metoprolol tartrate 25 mg Tablet PO ×2 (08:53→17:37)
--- NOTE | 2020-04-05 08:55 | P.PN_ITS ---
Subjective Subjective: Interval history: She is having some frontal headache today. She says she was coughing quite a bit yesterday. Today she is somewhat better. Says breathing is comfortable while wearing heated high flow cannula. She does know the year is 2019. She knows she is in [place], but is little bit confused as to what building she is in. At one point does ask me so should I had over to the hospital at some time. When asked where she thought she was she states [facility], which is a street in [place]. Vitals/I&O/Wt Last Vital Signs Temp 98.1 F 04/05/20 06:00 Pulse 80 04/05/20 07:28 Resp 16 04/05/20 07:28 BP 156/89 04/05/20 06:00 Pulse Ox 93 04/05/20 07:28 04/04/20 04/05/20 04/05/20 22:59 06:59 14:59 Intake Total 3396.7969 / 3747.2239 598.968 / 4346.1919 Output Total 100 / 300 1200 / 1500 Balance 3296.7969 / 3447.2239 -601.032 / 2846.1919 Physical Exam Const: COMMON NORMALS: no acute distress GENERAL APPEARANCE: cooperative OTHER: Awake, but more lucid. HENMT: COMMON NORMALS: oropharynx normal HEAD & SCALP: other (Multiple bruises on her face and various stages of healing.) Neck/C-Spine: COMMON NORMALS: no JVD Resp: COMMON NORMALS: normal respiratory effort AUSCULTATION: diminished lung sounds (Mildly, worse on the right, although this appears to be improving.) Cardio: COMMON NORMALS: no JVD, S1 normal heart sound present, S2 normal heart sound present and No murmurs present (Cardio) RHYTHM: abnormal rhythm with ectopic beats HEART SOUNDS: S1 normal heart sound present and S2 normal heart sound present GI: COMMON NORMALS: Normal to inspection, nondistended, normoactive bowel sounds present, Soft to palpation and non-tender PALPATION: Yes Soft to palpation Extremity: COMMON NORMALS: no joint enlargement and no pedal edema OTHER: Bruising on her arms Neuro: COMMON NORMALS: moves all extremities Psych: OTHER: Knows the year is 2019, knows she is in [place], but is somewhat confused that she does not realize she is in the hospital already. Skin: COMMON NORMALS: no rashes or lesions noted GENERAL SKIN EXAM: no rashes or lesions noted Urinary Catheter Management^: Fan Latex Free: Cath Placed During This Visit: yes Reason for Continuing Indwelling Catheter: Accurate Measurement of Urinary Output in Critically Ill Patients Urinary Catheter Date of Insertion: 04/03/20 Urinary Catheter Time of Insertion: 00:00 Data : 04/05/20 04:11 04/05/20 04:11 Micro: Microbiology 04/03/20 15:35 Blood Culture - Preliminary Blood NEGATIVE TO DATE 04/02/20 23:56 Urine Culture - Preliminary Urine Catheterized A&P Assessment and plan (1) Hypoxia: This appears to be gradually improving. She had a bad time with BiPAP, but did tolerate it for a while. Has been doing well with heated high flow cannula, with flow decrease down to about 25 L. There was improvement of patchy infiltrates, also cardiomegaly and congestive changes on chest x-ray yesterday. She is in positive balance, so we will give her a small dose of Lasix today 20 mg IV, and monitor THIAGO, renal function. Blood pressures. Reassess volume status prior to further diuretics. Continue one-to-one sitter due to confusion, impulsive behavior, high risk that she may remove oxygen, below Or try to get out of bed. She was getting agitated early this morning, and so Precedex although weaned off yesterday had to be restarted. Will restart her home Librium as needed and a little bit extended intervals, does have Xanax in addition as well, will try to wean off Precedex again slowly. Discussed with her nurse. I attempted to call her for an update, but could not reach him. Continue empirically on antibiotics for possible bacterial pneumonia. Rapid flu was negative. COVID-19 negative. Hold fludrocortisone. If blood pressure dropping down lower, may restart at lower dose. Resume once she is able to start getting out of bed. For now will maintain n.p.o., aspiration precautions. Normally not on oxygen. Status: Acute (2) Fever: Resolved. Pneumonia, possibly viral. Due to possible bacterial pneumonia at this time continue antibiotic coverage as above. Descending colitis. Possible UTI, although urine culture so far without growth. Blood culture negative so far. Additional assessments and treatment as above. Status: Acute (3) Tachycardia: Will give additional potassium, 20 mEq oral replacement. Recheck magnesium. Maintain potassium close to 4. Magnesium close to 2. She is resumed oral diet, restarted metoprolol p.o. Treat infections. Irregular tachycardia, with sinus tachycardia, PACs. Currently is improved with replacement of electrolytes, improvement in oxygenation, as well as on Precedex. Some of this is thought to be secondary to autonomic dysfunction with concern for possible additional underlying condition like multisystem atrophy/LBD. Hold duloxetine due to concern for possible adverse effects. We also restarted her librium as her states she takes this quite a bit at home in case there is also some withdrawal. Status: Acute (4) Recurrent syncope: Fludrocortisone on hold for now, but may need to resume if becoming hypotensive. Midodrine on hold. Resume meds once she is able to get up with PT. Attempted to reach out to her neurologist Dr. Rebolledo at [facility], however, he has not been available, so spoke with 1 of the covering neurologist Dr. Marques. Per discussion with him as with recurrent episodes of syncope seizure disorder still cannot be excluded, suggested starting empirically on 500 mg twice a day Keppra, with additional follow-up for reassessment in office with Dr. Rebolledo. He agrees that perhaps addition condition MSA/Lewy body dementia may be considered, and may warrant additional evaluation by her neurologist. At this time he would avoid starting both anticholinergic medication and Keppra at the same time. He will orally these concerns to her neurologist so he may anticipate this during the office visit. Due to some of the noted cognitive dysfunction, poor safety awareness, impulsivity, we requested additional evaluation by our psychiatrist. Appreciate additional recommendations. Reportedly scored 17/30 on MMSE, although may need to be re-scored once she is feeling better/closer to her baseline as her condition deteriorated further. Reports of sundowning behavior noted by nursing. Per neurologist also liberalize salt intake. Request compression stockings. Neurologist initially considered increasing fludrocortisone dose to allow for decrease in midodrine dose due to supine hypertension, however, she is already on 0.3 mg fludrocortisone. At this time we will leave these medications unchanged. reports some itching with midodrine. When taking, elevate head of bed to avoid supine hypertension. Extreme orthostatic hypotension. Recently she has been more forgetful, also is very impulsive, and he noticed some personality changes where she would get upset at her family members sometimes for no reason, and become very angry. This impulsivity unfortunately is leading to recurrent orthostatic hypotension episodes, leading to syncope, leading to multiple falls, as evidenced by bruising on her face, arms. Discussed with unfortunately given overall symptoms concern for additional underlying condition, possibly dementia with Lewy bodies/MSA, which may explain both her cognitive dysfunction, personality changes, but also episodes of syncope, as well as autonomic dysfunction with severe orthostatic hypotension. Discussed with him that unfortunately her lack of insight into the danger of her condition, as well as impulsivity, and cognitive dysfunction unfortunately at this time will require 24-hour supervision to prevent further episodes as well as due to risk of severe injury with disability, or requiring hospitalization or surgery to manage, or even life-threatening injury from occurring. Will ask d ischarge planning to see. Discussed also needs additional very close evaluation by neurologist to evaluate for this possible condition, or other possible conditions that may explain her symptoms, and perhaps may have some options for treatment. At this time continue cardiac monitoring. Does appear to have some PACs, possibly short runs of SVT. May consider repeat event monitoring although now carmelita barton longer hospital stay not sure whether this will be significantly beneficial as she has other good causes that may explain her recurrent falls/syncopal episodes. Variability in heart rates appear to be related to the same problem with autonomic dysfunction with orthostatic hypotension. Echocardiogram with grade 1 diastolic dysfunction. Status: Acute (5) Orthostasis: As above. Status: Acute (6) Orthostatic syncope: As above. Status: Acute (7) Hypokalemia: Replaced. Fludrocortisone will be held for now. Replaced hypomagnesemia. Status: Acute (8) Hypomagnesemia: Replaced. Status: Acute Additional A&P Information Acute encephalopathy: Fluctuating mental status. Today appears to be slightly better. Was very confused. Combative last night. Required starting of Precedex drip. This appears likely multifactorial, with acute encephalopathy secondary to acute infection with pneumonia, colitis, UTI, with delirium suspected also superimposed on top of chronic developing dementia, also possible adverse drug effect from duloxetine on admission, currently agitation may have been secondary to withdrawal. Possibility of benzodiazepine withdrawal. Has afshin curiel Xanax ordered, however, has not been taking diet p.o. Will order low-dose as needed IV Ativan. Hypophosphatemia: Replaced. Elevated d-dimer: CTA without signs of PE. Pulmonary fibrosis: Noted Descending colitis: IV had been replaced. Currently antibiotics include Primaxin. Stool culture. Has been tolerating regular diet. Reports previously 1 episode of some blood in her stool, with history of hemorrhoid, but this had resolved without any recurrence. No diarrhea. Patient is endorsing history of hemorrhoid Need outpatient follow-up for resolution of hematuria She is not a smoker History of seizures: Per discussion with neurology at this time empirically cover with Keppra 500 mg twice daily. Attestations Medical Necessity Statement*: Continue admission for assessment management of pneumonia, hypoxic respiratory failure, encephalopathy, colitis, and assessment of management for underlying episodes of recurrent falls, syncope, autonomic dysfunction. Coding Level of Care Code Acute Recovery Room Nurse for [facility] Olived Diagnoses Hypoxia R09.02 Fever R50.9 Tachycardia R00.0 Recurrent syncope R55 Orthostasis I95.1 Orthostatic syncope I95.1 Hypokalemia E87.6 Hypomagnesemia E83.42
[2020-04-05] MEDS: FUROsemide 10 mg/mL SDV 2mL 20 MG IVP (09:15)
[2020-04-05] MEDS: potassium chloride oral liq 20 mEq/15 mL UDC PO (09:15)
--- NOTE | 2020-04-05 12:51 | P.PN_ITS ---
Subjective NPU Subjective: Interval history: Leatha was seen in the ICU and her Home was present. She was being very dramatic as the nurse was doing flushes in her hand, on multiple occasions yelling out in pain when the nurse had not even applied any pressure to the syringe, so nothing was going on. They reported there has been a lot of this seemingly high drama behavior and it has reportedly been most pronounced when her has been there. She has continued to have some fevers here and there which they were trying to manage. So far COVID and flu results have been negative. There is some concern about what her home regimen is with multiple benzodiazepines reportedly which is unclear if one of them is meant to treat the orthostasis. Ultimately, she was resistant to talking about medication, but we discussed the fact that if she is having anxiety, that a medication like Lexapro would be a much better choice than benzodiazepines at her age. Mental Status Exam MSE Comments: This is a well-nourished, well-developed, elderly, white female, with a hospital gown on with limited grooming, and eye contact. No abnormal movements except for psychomotor agitation. Semi-cooperative with exam in mild distress. Speech was increased rate, normal volume. Mood described as good; affect irritable. Thought process, organized. Thought content: patient denied any suicidal or homicidal ideation, there were no delusions reported or noted, patient denied any auditory or visual hallucinations. Attention, concentration, and memory appeared intact but were not formally tested. Alert and oriented times three. Insight and judgment are limited. Impulse control is limited. Vitals/I&O/Wt Last Vital Signs Temp 98.1 F 04/05/20 12:00 Pulse 72 04/05/20 12:00 Resp 28 H 04/05/20 12:00 BP 114/60 04/05/20 12:00 Pulse Ox 92 04/05/20 12:00 04/05/20 04/05/20 04/06/20 14:59 22:59 06:59 Intake Total 625.185 / 625.185 319.7 / 944.885 185.773 / 1130.658 Output Total 650 / 650 400 / 1050 500 / 1550 Balance -24.815 / -24.815 -80.3 / -105.115 -314.227 / -419.342 Physical Exam Urinary Catheter Management^: Fan Latex Free: Cath Placed During This Visit: yes Reason for Continuing Indwelling Catheter: Accurate Measurement of Urinary Output in Critically Ill Patients Urinary Catheter Date of Insertion: 04/03/20 Urinary Catheter Time of Insertion: 00:00 Data NPU : 04/08/20 04:50 04/09/20 04:30 Micro: Microbiology 04/05/20 15:43 C.difficile Toxin B Gene (PCR) - Final Stool 04/02/20 23:56 Urine Culture - Final Urine Catheterized Microbiology 04/05/20 15:43 Stool C.difficile Toxin B Gene (PCR) - Final 04/02/20 23:56 Urine Catheterized Urine Culture - Final A&P Additional A&P Information (1) Orthostatic syncope: (2) Recurrent syncope: (3) Anxiety: This is a 79 year old, white female, with no history of significant mental health issues, with recent significant medical challenges over the last 3 ? years, who presents with adjustment disorder with mixed disturbance of emotion and conduct, depression, anxiety, and dementia and recent altered mental status, and some question of personality change with impulsivity leading to multiple at least subacute if not necessarily fully concussive head injuries. Continue current medication. except: start lexapro 10 mg po qam. Encourage individual, group, and milieu therapy. Continue q-15 minute checks for safety. (4) Depression: Attestations NPU Medical Necessity Statement*: N/A. We will defer medical necessity to the inpatient primary team, however it is looking less likely patient needs ongoing geriatric psychiatric services. Coding Level of Care Code Acute Shipfitter Helper for Hong Lopez
--- NOTE | 2020-04-05 15:40 | PC.NURSE ---
PASSCODE ESTABLISHED WITH FAMILY OF [id number]
[2020-04-05] MEDS: chlordiazePOXIDE 10 mg Capsule PO (16:42)
[2020-04-05] MEDS: labetalol 5 mg/mL SDV 20mL 10 MG IVP (16:42)
[2020-04-05] MEDS: LORazepam 2 mg/mL INJ 1 mL 0.5 MG IVP ×2 (17:38→23:59)
[2020-04-05] MEDS: levETIRAcetam 500 mg Tablet PO (22:29)
[2020-04-06] VITALS (92 sets, daily range): BP systolic 73–193; BP diastolic 44–133; PULSE 67–145; RESP 18–57; TEMP 37.5–38.7; O2SAT 61–100
[2020-04-06] MEDS: metoprolol tartrate 1 mg/1 mL SDV 5 mL 5 MG IV ×4 (00:10→22:19)
--- NOTE | 2020-04-06 00:15 | ECG_ITS ---
[facility] Test Date: 2020-04-06 Pat Name: Leatha Malin Department: Room: ICU09 Gender: Female Tapper Helper: : 1940 Requested By: Alfonzo Hameed Order Number: [id number] Reading MD: Scarlett Nolen M.D. Measurements Intervals [place] Rate: 133 P: [place]: -1 QRS: 62 QRSD: 90 T: -35 QT: 318 QTc: 473 Interpretive Statements ATRIAL FIBRILLATION WITH RAPID VENTRICULAR RESPONSE POSSIBLE INFERIOR MYOCARDIAL INFARCTION [30 ms Q WAVE IN II/aVF], OF INDETERMINATE AGE WARNING: DATA QUALITY MAY AFFECT INTERPRETATION Compared to ECG 04/02/2020 18:01:01 Sinus rhythm no longer present Ventricular premature complex(es) no longer present T-wave abnormality no longer present Myocardial infarct finding still present Electronically Signed On 04-06-2020 9:37:37 CDT by Scarlett Nolen M.D. [id number]
[2020-04-06 01:06] LABS: Vancomycin Trough 8.4 ug/mL (10-15)
--- NOTE | 2020-04-06 01:17 | PC.NURSE ---
At approx. 0000, patient became more agitated, confused, tachypneic. Multiple times redirection was attempted, failed, medications given for agitation, precedex infusion titrated, no improvement. Patient developed tachycardia, arrhythmia, 12-lead obtained, revealed afib w/ rvr. Dr. Noyola notified, diltiazem bolus given. Patient continues to attempt to pull out IV's, ekg leads, barb soft wrist restraints applied, Dr. Noyola again notified.
[2020-04-06] MEDS: dexmedetomidine 400 MCG in sodium chloride 0.9% (100 ml) 100 ML 12 MCG IV (02:16)
--- NOTE | 2020-04-06 02:40 | PM.EVENT ---
Event Note Event Note: New onset atrial fibrillation with RVR heart rate consistently in the 140s to 150s range with systolic blood pressure around 100s Initial Cardizem bolus of 10 mg did decrease her heart rate to 120s but it fluctuated between 120s to 140s decision was made to start amiodarone drip because of hypotension, Eliquis 5 mg twice daily started, hemoglobin 9.3 Patient has been very agitated still on Precedex gtt.
[2020-04-06 04:35] LABS: Basophils % 0.5 %; Eosinophils # 0.3 10^3/uL (0.0-0.8); Eosinophils % 3.7 %; Hematocrit 24.9 % (37.0-47.0); Hemoglobin 7.9 g/dL (11.5-15.3); Lymphocytes # 1.2 10^3/uL (0.8-4.8); Lymphocytes % 14.3 %; Mean Corpuscular HGB Conc 31.7 g/dL (30.0-36.0); Mean Corpuscular Hemoglobin 31.9 pg (28.0-34.0); Mean Corpuscular Volume 100.4 fL (81-99); Mean Platelet Volume 10.6 fL (7.4-10.4); Monocytes # 0.5 10^3/uL (0.2-0.9); Monocytes % 5.4 %; Neutrophils # 6.42 10^3/uL (1.8-7.7); Neutrophils % 75.5 %; Nucleated Red Blood Cells % 0 %; Platelet Count 241 10^3/cmm (130-400); Red Blood Count 2.48 10^6/uL (4.1-5.3); Red Cell Distribution Width 13.9 % (12.1-15.1); White Blood Count 8.5 10^3/uL (4.0-10.0)
[2020-04-06 04:56] LABS: Magnesium 1.6 mg/dL (1.7-2.3)
[2020-04-06 04:58] LABS: Alanine Aminotransferase 8 U/L (0-33); Albumin Level 2.7 g/dL (3.5-5.2); Alkaline Phosphatase 68 IU/L (35-105); Anion Gap 12.4 (5-19); Aspartate Amino Transferase 19 U/L (0-32); Blood Urea Nitrogen 16 mg/dL (8-23); Calcium 7.7 mg/dL (8.5-10.5); Carbon Dioxide 26 mmol/L (22-29); Chloride 105 mmol/L (98-107); Creatinine Clr Calc Pharmacy 48.8631; Globulin 2.9 g/dL (1.3-4.6); Glucose 141 mg/dL (65-115); Osmolality Calculated 289 mOsm/kg (285-295); Potassium 3.4 mmol/L (3.5-5.1); Sodium 140 mmol/L (136-145); Total Bilirubin 0.6 mg/dL (0.15-1.2); Total Protein 5.6 g/dL (6.6-8.7)
[2020-04-06] MEDS: acetaminophen 650 mg Supp PR (05:28)
[2020-04-06] MEDS: potassium chloride premix 40 MEQ/100 ML PREMIX 25 MEQ IV (05:52)
--- NOTE | 2020-04-06 06:00 | XR_ITS ---
WS: [id number] PORTABLE CHEST HISTORY: Hypoxia COMPARISON: 04/04/2020 Lung volumes are decreased. Severe bilateral progressive opacifications throughout all lobes. Small p leural effusions. Cardiac size: Mildly enlarged cardiac silhouette. Mediastinum/Aorta: Moderate atherosclerosis aorta. Severe osteopenia. XR/XR chest 1V portable [id number] IMPRESSION: Progressive bilateral opacifications. Probably combination of pneumonia and an maAric
--- NOTE | 2020-04-06 08:39 | P.PN_ITS ---
Subjective Subjective: Interval history: Chart reviewed, overnight noted to developed A. fib with RVR requiring initiation of amiodarone drip, received 1 bolus of Cardizem, on Precedex drip. Had 500 mL urine output overnight for total positive fluid balance of 6.3 L. Hypotensive this morning, rate controlled, T- max of 102.1 and febrile this morning with a temperature of 100.7F. Remains on high flow NC, tachypneic. Patient seen several times throughout the day, initially resting in bed and requiring BiPAP. Seen in the afternoon, more alert, on heated high flow. Seen again with at bedside, had an extensive discussion with patient and spouse on clinical status. Patient seems to be much more alert, sitter at bedside, remains on heated high flow nasal cannula. Weaned off Precedex and amiodarone drips. Medications: Reviewed: Yes Medication Review Details: Active Medications Generic Name Dose Route Start Last Admin Trade Name Freq PRN Reason Stop Dose Admin Acetaminophen 650 mg 04/05/20 08:25 04/05/20 23:59 Tylenol PO 650 mg Q4H PRN Administration MILD PAIN OR INCR EASE TEMP Acetaminophen 650 mg 04/06/20 04:38 04/06/20 05:28 Tylenol [place] 650 mg ONCE PRN Administration FEVER >100.4 Alprazolam 0.25 mg 04/01/20 10:31 04/05/20 15:16 Xanax PO 0.25 mg TID PRN Administration ANXIETY Chlordiazepoxide 10 mg 04/02/20 16:18 04/05/20 16:42 Librium PO 10 mg Q8H PRN Administration ANXIETY Escitalopram Oxala te 10 mg 04/03/20 09:00 04/03/20 09:54 Lexapro PO Not Given DAILY FABY Fludrocortisone Ac etate 0.3 mg 04/03/20 09:00 04/03/20 09:54 Florinef PO Not Given DAILY FABY Imipenem/Cilastati n Sodium 500 100 mls @ 200 mls /hr 04/02/20 16:30 04/06/20 05:58 mg/ Sodium Chlor sharon IV Infused Q6H FABY Infusion Protocol Dexmedetomidine HC l 400 mcg/ 104 mls @ 0 mls/h r 04/03/20 18:15 04/06/20 05:45 Sodium Chloride IV 0 mcg/kg/hr .Q0M FABY 0 mls/hr Titration Protocol Per Protocol Vancomycin HCl 1,2 50 mg/ 250 mls @ 250 mls /hr 04/06/20 19:00 Sodium Chloride IV Q18H FABY Amiodarone HCl 900 mg/ 518 mls @ 0 mls/h r 04/06/20 01:30 04/06/20 05:25 Dextrose/ IV Misce llaneous IV 0 mg/min Supplies .Q0M FABY 0 mls/hr Titration Protocol Per Protocol Potassium Chloride 40 meq in 100 mls @ 25 mls/hr 04/06/20 05:25 04/06/20 05:52 K-Jared IV 04/06/20 09:24 25 mls/hr ONCE ONE Administration Lanolin 1 applic 04/03/20 23:11 04/03/20 23:17 Lanolin Oint TOPICAL 1 applic PRN PRN Administration DRYNESS Levetiracetam 500 mg 04/05/20 21:00 04/05/20 22:29 Keppra PO 500 mg Q12H FABY Administration Lorazepam 0.5 mg 04/04/20 09:59 04/05/20 23:59 Ativan IVP 0.5 mg Q4H PRN Administration ANXIETY Metoprolol Tartrat e 25 mg 04/02/20 18:15 04/05/20 17:37 Lopressor PO 25 mg BID FABY Administration Metoprolol Tartrat e 5 mg 04/03/20 10:18 04/06/20 00:10 Metoprolol Tartr ate IV 5 mg Q4H PRN Administration HEART RATE-HIGH Senna/Docusate Sod ium 1 tab 03/31/20 09:00 04/05/20 08:53 Senna-S PO 1 tab DAILY FABY Administration levofloxacin [From Levaquin] Allergy (Verified 03/30/20 19:46) Unknown Vitals/I&O/Wt Last Vital Signs Temp 100.7 F H 04/06/20 04:00 Pulse 74 04/06/20 07:42 Resp 20 H 04/06/20 07:42 BP 78/44 04/06/20 06:00 Pulse Ox 100 04/06/20 07:42 04/05/20 04/06/20 04/06/20 22:59 06:59 14:59 Intake Total 319.7 / 944.885 337.773 / 1282.658 Output Total 400 / 1050 500 / 1550 Balance -80.3 / -105.115 -162.227 / -267.342 Physical Exam Const: COMMON NORMALS: no acute distress and alert GENERAL APPEARANCE: cooperative, comfortable and frail appearing ORIENTATION/CONSCIOUSNESS: Yes awake and Yes oriented to person HENMT: COMMON NORMALS: normocephalic, atraumatic, hearing grossly normal bilaterally and moist oral mucous membranes HEAD & SCALP: normocephalic and atraumatic OTHER: -Fading left periorbital bruising Eye: COMMON NORMALS: Equal, round and reactive pupils present, EOMs intact bilaterally and conjunctivae normal CONJUNCTIVA: Yes conjunctivae normal PUPIL: Yes Equal, round and reactive pupils present Neck/C-Spine: COMMON NORMALS: full ROM GENERAL: Yes normal visual inspection and Yes trachea midline Resp: COMMON NORMALS: No retractions, No use of accessory muscles and clear to auscultation bilaterally EFFORT & INSPECTION: Yes able to speak in complete sentences, Yes symmetric chest movement and Yes tachypneic AUSCULTATION: clear to auscultation bilaterally and crackles OTHER: -on BiPAP vs. heated high flow NC Cardio: COMMON NORMALS: regular rate, regular rhythm, S1 normal heart sound present, S2 normal heart sound present and No murmurs present (Cardio) RATE: regular rate and tachycardic (intermittently) RHYTHM: regular rhythm HEART SOUNDS: S1 normal heart sound present and S2 normal heart sound present GI: COMMON NORMALS: Normal to inspection, nondistended, normoactive bowel sounds present, Soft to palpation and non-tender PALPATION: Yes Soft to palpation : BLADDER/KIDNEY EXAM: Yes catheter in place Catheter type (Female): urethral Extremity: COMMON NORMALS: normal to inspection, full ROM and no clubbing, cyanosis or edema; negative for no pedal edema Neuro: COMMON NORMALS: moves all extremities, no focal motor deficits and no sensory deficits noted SENSORIUM/ORIENTATION: Yes alert and Yes oriented to person OTHER: -mental status waxes and wanes Psych: COMMON NORMALS: Normal thought process present, cooperative, normal affect (low threshold for anxiety) and speech normal SPEECH: Yes normal speech THOUGHT PROCESS: Normal thought process present INSIGHT: Limited insight present (Psych) Skin: COMMON NORMALS: no rashes or lesions noted, no jaundice, no petechiae and no mottling GENERAL SKIN EXAM: no rashes or lesions noted Urinary Catheter Management^: Fan Latex Free: Cath Placed During This Visit: yes Reason for Continuing Indwelling Catheter: Accurate Measurement of Urinary Output in Critically Ill Patients Urinary Catheter Date of Insertion: 04/03/20 Urinary Catheter Time of Insertion: 00:00 Data : 04/06/20 03:28 04/06/20 03:28 Micro: Microbiology 04/05/20 15:43 C.difficile Toxin B Gene (PCR) - Final Stool 04/02/20 23:56 Urine Culture - Final Urine Catheterized A&P Assessment and plan (1) Fever: -Has been intermittently febrile including overnight with a T-max of 102.1, temperature this morning is 100.7 F -CT A/P (03/30): descending colon colitis -CXR (04/06): progressive bilateral opacifications, probably combination of pneumonia and edema -influenza and COVID-19 negative -on Primaxin, d/c Vanc -blood cx: negative, urine cx: negative -C.difficile negative -no noted rigidity but with cluster of fever, hemodynamic instability, altered mental status, NMS is a consideration; had previously been noted to have mild CPK elevation, repeat this Status: Acute Qualifiers: Fever type: unspecified Qualified Code(s): R50.9 - Fever, unspecified (2) Colitis: -as noted above Status: Acute (3) Orthostasis: -unclear etiology given the cluster of symptoms, differentials include autonomic dysfunction -Florinef had been on hold, may need to resume due to noted hypotension overnight -close monitoring of vital signs -has had recurrent syncopal episodes -telemetry monitoring -Echo: EF=71%, G1DD, mild LVH, no RWMA, trace MR, trace AR, trace TR Status: Acute (4) PÉREZ (acute kidney injury): -renal function wnl Status: Resolved (5) Recurrent syncope: -as noted above Status: Acute (6) Tachycardia: -had been noted previously with PACs on telemetry -noted to develop atrial fibrillation with RVR overnight, received Cardizem bolus and started on Amiodarone drip -on BB -telemetry monitoring -Echo as noted above -anemic so may not be a good candidate for AC -replace lytes, particularly K, Mg -elevated D-dimer, no PE on CTA chest Status: Acute (7) Hypoxia: -requiring high flow NC; avoid BiPAP use due to concern for aspiration -evidence of pneumonia on imaging; suspect some degree of fibrosis and potent ially pulmonary hypertension -on antibiotics -continue to monitor respiratory status Status: Acute (8) Pyuria: -UA with noted hematuria/pyuria/trace bacteria -urine cx negative Status: Acute (9) Seizures: -has been following up with Dr. Rebolledo (Neurology) at [facility] -on Keppra -seizure precautions Status: Chronic (10) Anxiety: -cymbalta on hold -xanax, Ativan PRN, on Precedex drip, Librium; discontinue all of these meds Status: Chronic (11) Encephalopathy acute: -likely multifactorial given cluster of symptoms including possible Lewy body dementia, seizure disorder, multisystem atrophy with infection as noted above, delirium -appreciate Psychiatry input; MMSE-17/30 -fall, aspiration, seizure precautions -Neurology f/u as outpatient -sitter at bedside -Will discontinue benzodiazepines at this time due to likelihood that this is causing more clouding of her sensorium and worsening her delirium particularly with her age -use Haldol PRN if severe agitation Status: Acute Additional A&P Information -full liquid diet; advance as tolerated. Keep NPO for now based on ST evaluation with noted likely aspiration, tentative plan for swallow study on 04/08 if appropriate -Acute macrocytic anemia; previous hemoglobin wnl; Hg trending down, continue to monitor closely -Hypomagnesemia; replace as needed -Elevated CPK-405; repeat tomorrow; statin on hold -Hyperglycemia; check A1c -strict fall precautions, request PT evaluation once hemodynamic and respiratory status allows -DVT ppx with SCDs, AC on hold due to anemia -Dispo: Home with services ([place]) -Code status: FULL code; updated at bedside; would like patient to return home on discharge if at all possible -ICU care due to low threshold for decompensation, Precedex drip Attestations Medical Necessity Statement*: Patient requires hospitalization for continued monitoring of hemodynamic and respiratory status, mental status, IV antibiotics. Time Spent in Patient Care: Greater than 35 minutes (>than 50% of time spent in counselling and/or direct pt care on unit) . Coding Level of Care Code Acute Director Of Education for Chg Fwd Exam Comprehensive Diagnoses Fever R50.9 Fever type: unspecified Colitis K52.9 Orthostasis I95.1 PÉREZ (acute kidney injury) N17.9 Recurrent syncope R55 Tachycardia R00.0 Hypoxia R09.02 Pyuria R82.81 Seizures R56.9 Anxiety F41.9 Encephalopathy acute G93.40
--- NOTE | 2020-04-06 09:20 | PC.SOCIAL ---
IMM Updated Page 2 of IMM updated and given to patient. Initialed, dated, and timed and placed back in chart.
--- NOTE | 2020-04-06 10:12 | PC.CHAP ---
Pastoral Care Encounter/Spiritual Assessment Type of Contact [] Declined track inspecting supervisor visit [] Patient/Family/Request visit [] Outpatient visit [] Follow-up visit [] Physician referral [] Code/Alert [x] Routine visit [] Staff referral [] Actively dying [] Patient sleeping [] Family support [] [] Out of room [] Palliative care [] [] Receiving care in room [] Pre-surgical visit [] Trauma [] Long length of stay [] ICU visit [] Other: Relational/Emotional Strength [] Patient feels connected with others/family/visitors/staff [] Distress [] Loneliness/isolation [] Abandonment Spirituality of Patient [] Person of Chanel [] Attends Scientologist of their Chanel [] Believes in Prayer [] Reads Bible or Quaker materials [] There are Spiritual issues to be addressed Waterproofer Helper Interventions [x] Prayer [] Active listening [] Non-anxious presence [] Spiritual/emotional support [] Crisis/trauma care [] Spiritual counseling [] Bereavement support [] Provided bereavement packet [] Provided Bible/devotional materials [] Provided toy/stuffed animal, coloring book to patient or family member [] Provided Communion [] Anointing/[place] [] Salvation [x] Completed spiritual assessment [] Other: Impact on Illness or Injury [] Angry [] Fearful [] Anxious [] Often cries [] Exhaustion [] Unable to work [] Unable to attend rastafarian [] Unable to walk/stand [] Unable to read [] Unable to drive [] Unable to eat/drink [] Unable to sleep [] Unable to be with family [] Patient intubated [] Other: Summary patient resting... setter present Time spent with patient 5 min
--- NOTE | 2020-04-06 10:56 | PC.NURSE ---
MEDICATIONS DEFERRED FROM TSA SCREENER DUE TO CONFUSION AND SEDATION OF PATIENT; PT MADE NPO THIS AM AND PLACED ON BIPAP TO HELP WITH OXYGENATION, HEART RATE, AND CONFUSION; WILL CONTINUE TO MONITOR
[2020-04-06] MEDS: LORazepam 2 mg/mL INJ 1 mL 0.5 MG IVP (13:19)
[2020-04-06] MEDS: metoprolol tartrate 25 mg Tablet PO (20:34)
[2020-04-06] MEDS: haloperidol inj 5 mg/mL INJ 1 mL IM (21:57)
[2020-04-06] MEDS: FUROsemide 10 mg/mL SDV 4mL 40 MG IVP (23:33)
[2020-04-07] VITALS (66 sets, daily range): BP systolic 124–189; BP diastolic 79–128; PULSE 81–152; RESP 17–42; TEMP 37.2–37.7; O2SAT 87–100
[2020-04-07] MEDS: acetaminophen 325 mg Tablet 650 MG PO ×2 (00:48→18:16)
[2020-04-07] MEDS: metoprolol tartrate 1 mg/1 mL SDV 5 mL 5 MG IV ×4 (02:11→23:48)
--- NOTE | 2020-04-07 03:56 | PC.NURSE ---
Notified Dr. Espino re: elevated SBP, ok'd for no interventions unless SBP>180.
[2020-04-07 04:07] LABS: Hematocrit 28.3 % (37.0-47.0); Lymphocytes % 13.2 %; Mean Corpuscular HGB Conc 31.8 g/dL (30.0-36.0); Mean Corpuscular Hemoglobin 31.1 pg (28.0-34.0); Mean Corpuscular Volume 97.9 fL (81-99); Mean Platelet Volume 10.6 fL (7.4-10.4); Neutrophils % 76.5 %; Platelet Count 267 10^3/cmm (130-400); Red Blood Count 2.89 10^6/uL (4.1-5.3); Red Cell Distribution Width 13.6 % (12.1-15.1); White Blood Count 10.1 10^3/uL (4.0-10.0)
[2020-04-07 04:08] LABS: Basophils # 0.1 10^3/uL (0.0-0.1); Basophils % 0.6 %; Eosinophils # 0.2 10^3/uL (0.0-0.8); Eosinophils % 2.4 %; Lymphocytes # 1.3 10^3/uL (0.8-4.8); Monocytes # 0.7 10^3/uL (0.2-0.9); Monocytes % 6.5 %; Nucleated Red Blood Cells % 0 %
[2020-04-07 04:34] LABS: Anion Gap 14.2 (5-19); Blood Urea Nitrogen 14 mg/dL (8-23); Calcium 8.1 mg/dL (8.5-10.5); Carbon Dioxide 28 mmol/L (22-29); Chloride 100 mmol/L (98-107); Glucose 120 mg/dL (65-115); Magnesium 1.7 mg/dL (1.7-2.3); Osmolality Calculated 285 mOsm/kg (285-295); Potassium 3.2 mmol/L (3.5-5.1); Sodium 139 mmol/L (136-145)
[2020-04-07 04:41] LABS: Creatine Phosphokinase 57 U/L (26-192)
[2020-04-07 05:08] LABS: Estmated Average Glucose 117; Hemoglobin A1C 5.7 % (4.0-6.0)
[2020-04-07] MEDS: potassium chloride ER 10 mEq Tablet 40 MEQ PO (05:37)
[2020-04-07 06:10] LABS: Slide Review Slide Review Perform
[2020-04-07] MEDS: escitalopram 10 mg Tablet PO (08:07)
[2020-04-07] MEDS: metoprolol tartrate 25 mg Tablet PO ×2 (08:07→18:18)
--- NOTE | 2020-04-07 09:12 | PM.PN ---
Subjective Subjective: Interval history: Had 3200 mL urine output overnight, received dose of IV Lasix 40 mg and KCl. Tmax-101.7 F, hypertensive urgency and tachycardic this AM. Slight leukocytosis, and with fever, will repeat UA and blood culture. Improved hemoglobin. Received dose of Haldol overnight. Much more alert and coherent this morning, did much better with speech evaluation, and advanced to mechanical soft diet. Medications: Reviewed: Yes Medication Review Details: Active Medications Generic Name Dose Route Start Last Admin Trade Name Freq PRN Reason Stop Dose Admin Acetaminophen 650 mg 04/05/20 08:25 04/07/20 00:48 Tylenol PO 650 mg Q4H PRN Administration MILD PAIN OR INCR EASE TEMP Acetaminophen 650 mg 04/06/20 04:38 04/06/20 05:28 Tylenol [place] 650 mg ONCE PRN Administration FEVER >100.4 Escitalopram Oxala te 10 mg 04/03/20 09:00 04/07/20 08:07 Lexapro PO 10 mg DAILY FABY Administration Fludrocortisone Ac etate 0.3 mg 04/03/20 09:00 04/03/20 09:54 Florinef PO Not Given DAILY FABY Furosemide 40 mg 04/07/20 09:15 Lasix IVP Q24H FABY Haloperidol Lactat e 5 mg 04/06/20 20:44 04/06/20 21:57 Haldol Inj IM 5 mg Q6H PRN Administration AGITATION Imipenem/Cilastati n Sodium 500 100 mls @ 200 mls /hr 04/02/20 16:30 04/07/20 04:58 mg/ Sodium Chlor sharon IV 200 mls/hr Q6H FABY Administration Protocol Amiodarone HCl 900 mg/ 518 mls @ 0 mls/h r 04/06/20 01:30 04/06/20 05:25 Dextrose/ IV Misce llaneous IV 0 mg/min Supplies .Q0M FABY 0 mls/hr Titration Protocol Per Protocol Levetiracetam 500 mg/ Sodium 105 mls @ 420 mls /hr 04/06/20 12:15 04/07/20 01:02 Chloride IV 420 mls/hr Q12H FABY Administration Lanolin 1 applic 04/03/20 23:11 04/03/20 23:17 Lanolin Oint TOPICAL 1 applic PRN PRN Administration DRYNESS Lorazepam 0.5 mg 08/01/20 09:59 04/06/20 13:19 Ativan IVP 0.5 mg Q4H PRN Administration ANXIETY Metoprolol Tartrat e 25 mg 04/02/20 18:15 04/07/20 08:07 Lopressor PO 25 mg BID FABY Administration Metoprolol Tartrat e 5 mg 04/03/20 10:18 04/07/20 07:42 Metoprolol Tartr ate IV 5 mg Q4H PRN Administration HEART RATE-HIGH Potassium Chloride 40 meq 04/07/20 09:10 Potassium Chlori de Oral Liquid PO DAILY FABY Senna/Docusate Sod ium 1 tab 03/31/20 09:00 04/07/20 08:06 Senna-S PO Not Given DAILY [facility] levofloxacin [From Levaquin] Allergy (Verified 03/30/20 19:46) Unknown Vitals/I&O/Wt Last Vital Signs Temp 98.9 F 04/07/20 04:00 Pulse 138 H 04/07/20 07:49 Resp 18 04/07/20 07:49 BP 176/109 04/07/20 06:00 Pulse Ox 99 04/07/20 07:49 04/06/20 04/07/20 04/07/20 22:59 06:59 14:59 Intake Total 220 / 525 100 / 625 Output Total 300 / 450 3200 / 3650 Balance -80 / 75 -3100 / -3025 Physical Exam Const: COMMON NORMALS: no acute distress and alert GENERAL APPEARANCE: cooperative, comfortable and frail appearing ORIENTATION/CONSCIOUSNESS: Yes awake and Yes oriented to person HENMT: COMMON NORMALS: normocephalic, atraumatic, hearing grossly normal bilaterally and moist oral mucous membranes HEAD & SCALP: normocephalic and atraumatic OTHER: -Fading left periorbital bruising Eye: COMMON NORMALS: Equal, round and reactive pupils present, EOMs intact bilaterally and conjunctivae normal CONJUNCTIVA: Yes conjunctivae normal PUPIL: Yes Equal, round and reactive pupils present Neck/C-Spine: COMMON NORMALS: full ROM GENERAL: Yes normal visual inspection and Yes trachea midline Resp: COMMON NORMALS: No retractions, No use of accessory muscles and clear to auscultation bilaterally EFFORT & INSPECTION: Yes able to speak in complete sentences, Yes symmetric chest movement and Yes tachypneic AUSCULTATION: clear to auscultation bilaterally and crackles OTHER: -on heated high flow NC (FiO2-30%) Cardio: COMMON NORMALS: regular rate, regular rhythm, S1 normal heart sound present, S2 normal heart sound present and No murmurs present (Cardio) RATE: regular rate and tachycardic (intermittently) RHYTHM: regular rhythm HEART SOUNDS: S1 normal heart sound present and S2 normal heart sound present OTHER: -hypertensive GI: COMMON NORMALS: Normal to inspection, nondistended, normoactive bowel sounds present, Soft to palpation and non-tender PALPATION: Yes Soft to palpation : BLADDER/KIDNEY EXAM: Yes catheter in place Catheter type (Female): urethral Extremity: COMMON NORMALS: normal to inspection, full ROM and no clubbing, cyanosis or edema; negative for no pedal edema Neuro: COMMON NORMALS: moves all extremities, no focal motor deficits and no sensory deficits noted SENSORIUM/ORIENTATION: Yes alert and Yes oriented to person OTHER: -mental status waxes and wanes Psych: COMMON NORMALS: Normal thought process present, cooperative, normal affect (low threshold for anxiety) and speech normal SPEECH: Yes normal speech THOUGHT PROCESS: Normal thought process present INSIGHT: Limited insight present (Psych) Skin: COMMON NORMALS: no rashes or lesions noted, no jaundice, no petechiae and no mottling GENERAL SKIN EXAM: no rashes or lesions noted Urinary Catheter Management^: Fan Latex Free: Cath Placed During This Visit: yes Reason for Continuing Indwelling Catheter: Accurate Measurement of Urinary Output in Critically Ill Patients Urinary Catheter Date of Insertion: 04/03/20 Urinary Catheter Time of Insertion: 00:00 Data : 04/07/20 03:30 04/07/20 03:30 Micro: Microbiology 04/05/20 15:43 Enteric Pathogens (PCR) - Final Stool A&P Assessment and plan (1) Fever: -Has been intermittently febrile including overnight with a T-max of 101.7, afebrile currently -CT A/P (03/30): descending colon colitis -CXR (04/06): progressive bilateral opacifications, probably combination of pneumonia and edema -influenza and COVID-19 negative -on Primaxin, off Vanc -blood cx: negative, urine cx: negative; with slight leukocytosis and fever, will repeat UA and blood cx -C.difficile negative, enteric bacterial panel negative -no noted rigidity but with cluster of fever, hemodynamic instability, altered mental status, NMS is a consideration; had previously been noted to have mild CPK elevation, repeat normalized Status: Acute Qualifiers: Fever type: unspecified Qualified Code(s): R50.9 - Fever, unspecified (2) Colitis: -as noted above Status: Acute (3) Orthostasis: -unclear etiology given the cluster of symptoms, differentials include autonomic dysfunction -Florinef had been on hold, may need to resume due to noted hypotension overnight -close monitoring of vital signs; now hypertensive urgency; hydralazine PRN -has had recurrent syncopal episodes -telemetry monitoring -Echo: EF=71%, G1DD, mild LVH, no RWMA, trace MR, trace AR, trace TR -due to concern for fluid overload, start on IV diuresis Status: Acute (4) PÉREZ (acute kidney injury): -renal function wnl Status: Resolved (5) Recurrent syncope: -as noted above Status: Acute (6) Tachycardia: -had been noted previously with PACs on telemetry -noted to develop atrial fibrillation with RVR overnight, received Cardizem bolus and on Amiodarone drip, weaned off -on BB -telemetry monitoring -Echo as noted above -anemic so may not be a good candidate for AC -replace lytes, particularly K, Mg as needed -elevated D-dimer, no PE on CTA chest Status: Acute (7) Hypoxia: -requiring high flow NC; avoid BiPAP use due to concern for aspiration -evidence of pneumonia on imaging; suspect some degree of fibrosis and potentially pulmonary hypertension -on antibiotics -continue to monitor respiratory status Status: Acute (8) Pyuria: -UA with noted hematuria/pyuria/trace bacteria -urine cx negative Status: Acute (9) Seizures: -has been following up with Dr. Rebolledo (Neurology) at [facility] -on [facility] -seizure precautions Status: Chronic (10) Anxiety: -cymbalta on hold -off anxiolytics, sedating meds due to risk of prolonging delirium -Haldol PRN Status: Chronic (11) Encephalopathy acute: -likely multifactorial given cluster of symptoms including possible Lewy body dementia, seizure disorder, multisystem atrophy with infection as noted above, delirium -appreciate Psychiatry input; MMSE-17/30. Will likely need to repeat this once sensorium clears some more -fall, aspiration, seizure precautions -Neurology f/u as outpatient -sitter at bedside -off benzodiazepines at this time due to likelihood that this is causing more clouding of her sensorium and worsening her delirium particularly with her age -use Haldol PRN if severe agitation Status: Acute Additional A&P Information -NPO for now based on ST evaluation with noted likely aspiration, tentative plan for swallow study on 04/08 if appropriate -Acute macrocytic anemia; previous hemoglobin wnl; Hg improved today, continue to monitor closely -Hypomagnesemia; resolved, replace as needed -Elevated CPK-resolved; statin on hold -Hyperglycemia; A1c-5.7 -strict fall precautions, request PT evaluation once hemodynamic and respiratory status allows -DVT ppx with SCDs, AC on hold due to anemia -Dispo: Home with services ([place]) -Code status: FULL code; updated at bedside; would like patient to return home on discharge if at all possible -ICU care due to low threshold for decompensation, delirium, hemodynamic instability Attestations Medical Necessity Statement*: Patient requires hospitalization for continued monitoring of hemodynamic status, continued treatment of pneumonia, delirium, fluid overload. Time Spent in Patient Care: 16 - 35 minutes (>than 50% of time spent in counselling and/or direct pt care on unit). Coding Level of Care Code Acute International Trade Analyst for Chg Fwd Exam Comprehensive Diagnoses Fever R50.9 Fever type: unspecified Colitis K52.9 Orthostasis I95.1 PÉREZ (acute kidney injury) N17.9 Recurrent syncope R55 Tachycardia R00.0 Hypoxia R09.02 Pyuria R82.81 Seizures R56.9 Anxiety F41.9 Encephalopathy acute G93.40
--- NOTE | 2020-04-07 09:21 | PC.NURSE ---
Assisted patient with brushing teeth.
--- NOTE | 2020-04-07 10:14 | PC.NURSE ---
pt daughter called and spoke with staff regarding how her night went.
[2020-04-07] MEDS: potassium chloride oral liq 20 mEq/15 mL UDC 40 MEQ PO (10:32)
[2020-04-07] MEDS: FUROsemide 10 mg/mL SDV 4mL 40 MG IVP (10:33)
[2020-04-07 11:49] LABS: Add Urine Microscopic? YES; Bilirubin Urine Neg (NEGATIVE); Blood Urine 2+ (Negative); Glucose Urine UA Norm (Normal); Ketones Urine 1+ (Negative); Leukocyte Esterase Urine Negative (Negative); Nitrate Urine Negative (Negative); Protein Urine Neg (Negative); Specific Gravity, Urine 1.005 (1.005-1.030); Urine Appearance Clear (CLEAR); Urine Color Yellow (Yellow); Urobilinogen Urine Norm (Negative); pH Urine 7 (5-7)
[2020-04-07 11:54] LABS: Add Urine Culture? No; Bacteria Urine TRACE; RBC Urine 0-4 /hpf (0-2); Squamous Epithelial Cell Urine 0-4 (0-5); WBC Urine 0-4 /hpf (0-5)
[2020-04-07] MEDS: OLANZapine 10 mg VIAL 5 MG IM (22:20)
[2020-04-07] MEDS: LORazepam 2 mg/mL INJ 1 mL IM (22:42)
[2020-04-07] MEDS: dexmedetomidine 400 MCG in sodium chloride 0.9% (100 ml) 100 ML IV (23:55)
[2020-04-08] VITALS (54 sets, daily range): BP systolic 65–159; BP diastolic 43–117; PULSE 96–173; RESP 15–30; TEMP 36.4–36.6; O2SAT 89–99
--- NOTE | 2020-04-08 00:02 | ECG_ITS ---
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 Measurements Intervals [place] Rate: 141 P: UT: -1 QRS: 46 QRSD: 77 T: -46 QT: 290 QTc: 444 Interpretive Statements ATRIAL FIBRILLATION WITH RAPID VENTRICULAR RESPONSE (poor quality tracing because of artifact) Nonspecific ST-T wave of normality INTERPRETATION BASED ON A DEFAULT AGE OF 40 YEARS Compared to ECG 04/06/2020 00:25:09 T-wave abnormality now present Possible ischemia now present Myocardial infarct finding no longer present Electronically Signed On 04-08-2020 17:33:56 CDT by Bertin Mondragon M.D. [id number] f
--- NOTE | 2020-04-08 01:45 | PC.NURSE ---
Patient has been uncooperative, verbally/physically abusive. Dr. Espino notified multiple times, orders received for varying medications and therapies (see orders, MAR). Patient updated of status, attempted to talk to patient on phone, patient more agitated, upset that would not come pick patient up.
[2020-04-08] MEDS: acetaminophen 325 mg Tablet 650 MG PO ×2 (02:13→20:17)
[2020-04-08 05:01] LABS: Basophils % 0.4 %; Eosinophils # 0.3 10^3/uL (0.0-0.8); Hematocrit 28.5 % (37.0-47.0); Hemoglobin 9.1 g/dL (11.5-15.3); Lymphocytes # 1.5 10^3/uL (0.8-4.8); Lymphocytes % 15.4 %; Mean Corpuscular HGB Conc 31.9 g/dL (30.0-36.0); Mean Corpuscular Hemoglobin 31.5 pg (28.0-34.0); Mean Corpuscular Volume 98.6 fL (81-99); Mean Platelet Volume 10.5 fL (7.4-10.4); Monocytes # 0.5 10^3/uL (0.2-0.9); Monocytes % 4.8 %; Neutrophils # 7.14 10^3/uL (1.8-7.7); Neutrophils % 75.6 %; Nucleated Red Blood Cells % 0 %; Platelet Count 299 10^3/cmm (130-400); Red Blood Count 2.89 10^6/uL (4.1-5.3); Red Cell Distribution Width 13.5 % (12.1-15.1); White Blood Count 9.5 10^3/uL (4.0-10.0)
[2020-04-08 05:45] LABS: Anion Gap 12.5 (5-19); Blood Urea Nitrogen 26 mg/dL (8-23); Calcium 8.6 mg/dL (8.5-10.5); Carbon Dioxide 30 mmol/L (22-29); Chloride 102 mmol/L (98-107); Glucose 132 mg/dL (65-115); Osmolality Calculated 291 mOsm/kg (285-295); Potassium 3.5 mmol/L (3.5-5.1); Sodium 141 mmol/L (136-145)
--- NOTE | 2020-04-08 08:12 | PC.CHAP ---
Pastoral Care Encounter/Spiritual Assessment Type of Contact [] Declined animal science professor visit [] Patient/Family/Request visit [] Outpatient visit [] Follow-up visit [] Physician referral [] Code/Alert [x] Routine visit [] Staff referral [] Actively dying [] Patient sleeping [] Family support [] [] Out of room [] Palliative care [] [] Receiving care in room [] Pre-surgical visit [] Trauma [] Long length of stay [] ICU visit [x] Other: setter Relational/Emotional Strength [] Patient feels connected with others/family/visitors/staff [] Distress [] Loneliness/isolation [] Abandonment Spirituality of Patient [] Person of Chanel [] Attends Mormonism of their Chanel [] Believes in Prayer [] Reads Bible or Nondenominational materials [] There are Spiritual issues to be addressed Player Development Manager Interventions [x] Prayer [] Active listening [] Non-anxious presence [] Spiritual/emotional support [] Crisis/trauma care [] Spiritual counseling [] Bereavement support [] Provided bereavement packet [] Provided Bible/devotional materials [] Provided toy/stuffed animal, coloring book to patient or family member [] Provided Communion [] Anointing/[place] [] Salvation [x] Completed spiritual assessment [] Other: Impact on Illness or Injury [] Angry [] Fearful [] Anxious [] Often cries [] Exhaustion [] Unable to work [] Unable to attend jewish [] Unable to walk/stand [] Unable to read [] Unable to drive [] Unable to eat/drink [] Unable to sleep [] Unable to be with family [] Patient intubated [] Other: Summary patient resting well Time spent with patient
[2020-04-08] MEDS: FUROsemide 10 mg/mL SDV 4mL 40 MG IVP (08:59)
[2020-04-08] MEDS: metoprolol tartrate 1 mg/1 mL SDV 5 mL 5 MG IV ×2 (09:00→12:33)
--- NOTE | 2020-04-08 09:14 | P.PN_ITS ---
Subjective Subjective: Interval history: Patient was quite agitated and restless overnight, required Precedex drip as did not respond to Ativan, Zyprexa. Tachycardic overnight likely due to this. BP much better, afebrile. Remains on heated high flow NC. Has spent much of today asleep, calm, sitter at bedside. Has been minimally tachycardic throughout the day as well, oral meds held until awake. Medications: Reviewed: Yes Medication Review Details: Active Medications Generic Name Dose Route Start Last Admin Trade Name Freq PRN Reason Stop Dose Admin Acetaminophen 650 mg 04/05/20 08:25 04/08/20 02:13 Tylenol PO 650 mg Q4H PRN Administration MILD PAIN OR INCR EASE TEMP Acetaminophen 650 mg 04/06/20 04:38 04/06/20 05:28 Tylenol MA 650 mg ONCE PRN Administration FEVER >100.4 Escitalopram Oxala te 10 mg 04/03/20 09:00 04/07/20 08:07 Lexapro PO 10 mg DAILY FABY Administration Fludrocortisone Ac etate 0.3 mg 04/03/20 09:00 04/03/20 09:54 Florinef PO Not Given DAILY FABY Furosemide 40 mg 04/07/20 09:15 04/08/20 08:59 Lasix IVP 40 mg Q24H FABY Administration Haloperidol Lactat e 5 mg 04/06/20 20:44 04/06/20 21:57 Haldol Inj IM 5 mg Q6H PRN Administration AGITATION Hydralazine HCl 10 mg 04/07/20 09:13 Apresoline IVP Q4H PRN elevated blood pr essure Imipenem/Cilastati n Sodium 500 100 mls @ 200 mls /hr 04/02/20 16:30 04/08/20 09:00 mg/ Sodium Chlor sharon IV 200 mls/hr Q6H FABY Administration Protocol Amiodarone HCl 900 mg/ 518 mls @ 0 mls/h r 04/06/20 01:30 04/06/20 05:25 Dextrose/ IV Misce llaneous IV 0 mg/min Supplies .Q0M FABY 0 mls/hr Titration Protocol Per Protocol Levetiracetam 500 mg/ Sodium 105 mls @ 420 mls /hr 04/06/20 12:15 04/08/20 01:28 Chloride IV 420 mls/hr Q12H FABY Administration Dexmedetomidine HC l 400 mcg/ 104 mls @ 0 mls/h r 04/07/20 23:45 04/08/20 05:26 Sodium Chloride IV 0 mcg/kg/hr .Q0M FABY 0 mls/hr Titration Protocol Per Protocol Diltiazem HCl 125 mg/ Sodium 125 mls @ 0 mls/h r 04/08/20 01:00 04/08/20 01:15 Chloride IV 0 mg/hr .Q0M FABY 0 mls/hr Titration Protocol Per Protocol Lanolin 1 applic 04/03/20 23:11 04/03/20 23:17 Lanolin Oint TOPICAL 1 applic PRN PRN Administration DRYNESS Metoprolol Tartrat e 25 mg 04/02/20 18:15 04/07/20 18:18 Lopressor PO 25 mg BID FABY Administration Metoprolol Tartrat e 5 mg 04/03/20 10:18 04/08/20 09:00 Metoprolol Tartr ate IV 5 mg Q4H PRN Administration HEART RATE-HIGH Potassium Chloride 40 meq 04/07/20 09:10 04/07/20 10:32 Potassium Chlori de Oral Liquid PO 40 meq DAILY FABY Administration Senna/Docusate Sod ium 1 tab 03/31/20 09:00 04/07/20 08:06 Senna-S PO Not Given DAILY FABY levofloxacin [From Levaquin] Allergy (Verified 03/30/20 19:46) Unknown Vitals/I&O/Wt Last Vital Signs Temp 97.8 F 04/08/20 08:00 Pulse 120 H 04/08/20 08:30 Resp 17 04/08/20 08:30 BP 129/87 04/08/20 08:30 Pulse Ox 96 04/08/20 08:30 04/07/20 04/08/20 04/08/20 22:59 06:59 14:59 Intake Total 665 / 1015 234.863 / 1249.863 Output Total 626 / 2101 200 / 2301 Balance 39 / -1086 34.863 / -1051.137 Physical Exam Const: COMMON NORMALS: no acute distress GENERAL APPEARANCE: cooperative, comfortable and frail appearing OTHER: -resting in bed quietly HENMT: COMMON NORMALS: normocephalic, atraumatic, hearing grossly normal bilaterally and moist oral mucous membranes HEAD & SCALP: normocephalic and atraumatic OTHER: -Fading left periorbital bruising Eye: COMMON NORMALS: Equal, round and reactive pupils present, EOMs intact bilaterally and conjunctivae normal CONJUNCTIVA: Yes conjunctivae normal PUPIL: Yes Equal, round and reactive pupils present Neck/C-Spine: COMMON NORMALS: full ROM GENERAL: Yes normal visual inspection and Yes trachea midline Resp: COMMON NORMALS: No retractions, No use of accessory muscles and clear to auscultation bilaterally EFFORT & INSPECTION: Yes able to speak in complete sentences, Yes symmetric chest movement and Yes tachypneic AUSCULTATION: clear to auscultation bilaterally and crackles OTHER: -on heated high flow NC (FiO2-30-35%) Cardio: COMMON NORMALS: regular rate, regular rhythm, S1 normal heart sound present, S2 normal heart sound present and No murmurs present (Cardio) RATE: regular rate and tachycardic (intermittently) RHYTHM: regular rhythm HEART SOUNDS: S1 normal heart sound present and S2 normal heart sound present OTHER: -BP better controlled GI: COMMON NORMALS: Normal to inspection, nondistended, normoactive bowel sounds present, Soft to palpation and non-tender PALPATION: Yes Soft to palpation : BLADDER/KIDNEY EXAM: Yes catheter in place Catheter type (Female): urethral Extremity: COMMON NORMALS: normal to inspection, full ROM and no clubbing, cyanosis or edema; negative for no pedal edema Neuro: COMMON NORMALS: moves all extremities, no focal motor deficits and no sensory deficits noted OTHER: -mental status waxes and wanes Psych: COMMON NORMALS: Normal thought process present, cooperative, normal affect (low threshold for anxiety) and speech normal SPEECH: Yes normal speech THOUGHT PROCESS: Normal thought process present INSIGHT: Limited insight present (Psych) Skin: COMMON NORMALS: no jaundice, no petechiae and no mottling NARRATIVE SKIN EXAM: -fading bruising diffusely Urinary Catheter Management^: Fan Latex Free: Cath Placed During This Visit: yes Reason for Continuing Indwelling Catheter: Accurate Measurement of Urinary Output in Critically Ill Patients Urinary Catheter Date of Insertion: 04/03/20 Urinary Catheter Time of Insertion: 00:00 Data : 04/08/20 04:50 04/08/20 04:50 Micro: Microbiology 04/02/20 19:14 Blood Culture - Final Blood NO GROWTH AFTER 5 DAYS 04/02/20 19:14 Blood Culture - Final Blood NO GROWTH AFTER 5 DAYS 04/07/20 11:30 C.difficile Toxin B Gene (PCR) - Final Stool - Stool Aspirate 04/07/20 11:00 Blood Culture - Preliminary Blood SPECIMEN COLLECTED 04/07/20 10:54 Blood Culture - Preliminary Blood SPECIMEN COLLECTED A&P Assessment and plan (1) Fever: -low grade temp yesterday, afebrile since -CT A/P (03/30): descending colon colitis -CXR (04/06): progressive bilateral opacifications, probably combination of pneumonia and edema -influenza and COVID-19 negative -on Primaxin, off Vanc -blood cx: negative, urine cx: negative; with slight leukocytosis and fever, repeat UA negative, blood cx pending -C.difficile and enteric bacterial panel negative -no noted rigidity but with cluster of fever, hemodynamic instability, altered mental status, NMS is a consideration; had previously been noted to have mild CPK elevation, repeat normalized Status: Acute Qualifiers: Fever type: unspecified Qualified Code(s): R50.9 - Fever, unspecified (2) Encephalopathy acute: -likely multifactorial given cluster of symptoms including possible Lewy body dementia, seizure disorder, multisystem atrophy with infection as noted above, delirium -appreciate Psychiatry input; MMSE-17/30. Will likely need to repeat this once sensorium clears some more -fall, aspiration, seizure precautions -Neurology f/u as outpatient -sitter at bedside -off benzodiazepines at this time due to likelihood that this is causing more clouding of her sensorium and worsening her delirium particularly with her age -use Haldol PRN if severe agitation. May require antipsychotics Status: Acute (3) Colitis: -as noted above Status: Acute (4) Orthostasis: -unclear etiology given the cluster of symptoms, differentials include autonomic dysfunction -Florinef had been on hold, may need to resume due to noted hypotension overnight -close monitoring of vital signs; now hypertensive urgency; hydralazine PRN -has had recurrent syncopal episodes -telemetry monitoring -Echo: EF=71%, G1DD, mild LVH, no RWMA, trace MR, trace AR, trace TR -due to concern for fluid overload, on IV diuresis Status: Acute (5) PÉREZ (acute kidney injury): -continue to monitor renal function particularly with IV diuresis -renally dose meds, avoid nephrotoxins Status: Acute (6) Recurrent syncope: -as noted above; no episodes here Status: Acute (7) Tachycardia: -had been noted previously with PACs on telemetry -noted to develop atrial fibrillation with RVR, received Cardizem bolus and on Amiodarone drip, weaned off. Briefly required cardizem drip overnight -on BB -telemetry monitoring -Echo as noted above -anemic so may not be a good candidate for AC -replace lytes, particularly K, Mg as needed -elevated D-dimer, no PE on CTA chest Status: Acute (8) Hypoxia: -requiring high flow NC; avoid BiPAP use due to concern for aspiration -evidence of pneumonia on imaging; suspect some degree of fibrosis and potentially pulmonary hypertension -on antibiotics -continue to monitor respiratory status Status: Acute (9) Pyuria: -UA with noted hematuria/pyuria/trace bacteria. Repeat UA showing trace bacteria -urine cx negative Status: Resolved (10) Seizures: -has been following up with Dr. Rebolledo (Neurology) at [facility] -on [facility] -seizure precautions Status: Chronic (11) Anxiety: -cymbalta on hold -off anxiolytics, sedating meds due to risk of prolonging delirium -Haldol PRN Status: Chronic Additional A&P Information -repeat ST evaluation appreciated; advanced to mechanical soft diet -Acute macrocytic anemia; previous hemoglobin wnl; Hg stable, continue to monitor closely -Hypomagnesemia; resolved, replace as needed -Elevated CPK-resolved; statin on hold -Hyperglycemia; A1c-5.7 -strict fall precautions, request PT evaluation once hemodynamic and respiratory status allows -DVT ppx with SCDs, AC on hold due to anemia -Dispo: Home with services ([facility]) -Code status: FULL code; updated at bedside; would like patient to return home on discharge if at all possible -ICU care due to low threshold for decompensation, delirium, hemodynamic instability Attestations Medical Necessity Statement*: Patient requires hospitalization for continued management of acute encephalopathy with delirium, acute CHF exacerbation and pneumonia. Time Spent in Patient Care: 16 - 35 minutes (>than 50% of time spent in counselling and/or direct pt care on unit) . Coding Level of Care Code Acute Pathology Secretary for Chg Fwd Exam Comprehensive Diagnoses Fever R50.9 Fever type: unspecified Encephalopathy acute G93.40 Colitis K52.9 Orthostasis I95.1 PÉREZ (acute kidney injury) N17.9 Recurrent syncope R55 Tachycardia R00.0 Hypoxia R09.02 Pyuria R82.81 Seizures R56.9 Anxiety F41.9
--- NOTE | 2020-04-08 11:12 | PC.NURSE ---
patient is drowsy, reaches to face and removes equiptment but does not open her eyes long enough to communicate and exchange desires . unable to give oral meds at this time Dr gibson aware and iv lopressor given for heart rate rather than po .
--- NOTE | 2020-04-08 12:01 | PC.SLP ---
Attempted to see patient, however, nursing reported patient is unable to be awakened following medications given last night. Will continue to monitor.
--- NOTE | 2020-04-08 13:17 | PC.OT ---
OT Note: RN request hold, pt is not responsive today.
[2020-04-08] MEDS: sennosides-docusate Tablet 1 TAB PO (13:51)
[2020-04-08] MEDS: potassium chloride oral liq 20 mEq/15 mL UDC 40 MEQ PO (13:52)
[2020-04-08] MEDS: escitalopram 10 mg Tablet PO (13:52)
[2020-04-08] MEDS: dilTIAZem 30 mg Tablet PO (13:56)
--- NOTE | 2020-04-08 14:19 | PC.NURSE ---
1400 PATIENT AWOKE AND WAS ABLE TO TAKE HER AM MEDS MISSED. FIRST DOSE OF PO CARDIZEM GIVEN WELL. SOME COUGH AFTER TAKING DRINK OF WATER. AWAKE AND CALM AT THIS TIME
--- NOTE | 2020-04-08 15:20 | PC.SOCIAL ---
IMM Updated Pg 2 IMM updated & copy given to pt. Signed, dated, & timed copy & placed back in chart.
--- NOTE | 2020-04-08 18:00 | PC.PT ---
PT note; unable to arouse patient despite sternal rubbing, discussed same with patient physician, will follow hoping for improvement tomorrow
--- NOTE | 2020-04-08 19:58 | PHA.FALL ---
A Pharmacy Consult Was Conducted For Leatha Malin Due To: Salmon Fall Scale Risk Level: High Fall Risk On 04/08/20 08:00 And A Medication Fall Risk Score Greater Than 10. The Recommendations Are As Follows: no meds flagged specifically within beers criteria for fall risk. Consider potential side effects listed for medications below: Active inpatient meds diltiazem, metoprolol: dizziness, hypotension haldol: dystonia, EPS lexapro: dizziness, somnolence furosemide: orthostatic hypotension keppra: dizziness, somnolence Home meds chlordiazepoxide: ataxia, confusion, somnolence duloxetine: hypersomnia, sedation, somnolence
[2020-04-08] MEDS: dexmedetomidine 400 MCG in sodium chloride 0.9% (100 ml) 100 ML 6.8 MCG IV (23:25)
[2020-04-09] VITALS (41 sets, daily range): BP systolic 77–151; BP diastolic 51–99; PULSE 65–159; RESP 6–28; TEMP 36.4–37.2; O2SAT 92–100
--- NOTE | 2020-04-09 06:00 | XRR_ITS ---
PROCEDURE INFORMATION: Exam: XR Chest, 1 View Exam date and time: 04/09/2020 4:43 AM Age: 79 years old Clinical indication: Condition or disease; Lung condition and disease; Pneumonia; Other: Not specified; Additional info: Progression of pneumonia, edema TECHNIQUE: Imaging protocol: XR of the chest Views: 1 view. COMPARISON: CR XR chest 1V portable [id number] 04/06/2020 5:31 AM FINDINGS: Lungs: Interstitial disease with interval improvement in airspace disease. Pleural space: Questionable small pleural effusions. Heart/Mediastinum: Rightward deviation of the trachea. Cardiac silhouette upper limits of normal in size. Vasculature: Calcification of the thoracic aorta. Bones/joints: Osteopenia and degenerative change. XR/XR chest 1V portable [id number] IMPRESSION: Interstitial disease with interval improvement in airspace disease.
[2020-04-09 06:02] LABS: Anion Gap 10.5 (5-19); Blood Urea Nitrogen 22 mg/dL (8-23); Calcium 8.1 mg/dL (8.5-10.5); Carbon Dioxide 30 mmol/L (22-29); Chloride 103 mmol/L (98-107); Creatinine Clr Calc Pharmacy 48.8631; Glucose 104 mg/dL (65-115); Osmolality Calculated 287 mOsm/kg (285-295); Potassium 3.5 mmol/L (3.5-5.1); Sodium 140 mmol/L (136-145)
[2020-04-09] MEDS: metoprolol tartrate 1 mg/1 mL SDV 5 mL 5 MG IV (08:00)
[2020-04-09] MEDS: dilTIAZem 30 mg Tablet PO ×2 (08:40→15:32)
[2020-04-09] MEDS: sennosides-docusate Tablet 1 TAB PO (08:43)
[2020-04-09] MEDS: potassium chloride oral liq 20 mEq/15 mL UDC 40 MEQ PO (08:43)
[2020-04-09] MEDS: escitalopram 10 mg Tablet PO (08:43)
[2020-04-09 08:53] LABS: Glucose Point of Care 157 mg/dL (70-110)
[2020-04-09] MEDS: metoprolol tartrate 25 mg Tablet PO (08:56)
--- NOTE | 2020-04-09 09:06 | P.PN_ITS ---
Subjective Subjective: Interval history: Blood pressure much better today, remains slightly tachycardic, afebrile, remains on heated high flow, had 150 mL urine output overnight. Did require Precedex drip briefly overnight. Spent most of the afternoon sitting up in a recliner by bedside, seen several times throughout the day including during visit with her . Updated him at bedside on patient's progress. She is awake, alert though appears somewhat fatigued. Continues to be mildly tachycardic and blood pressure has intermittently been low normal. Per nursing staff she had an episode of pre-syncope earlier today while getting up to use the bedside commode. Vitals at that time was stable. No further episodes throughout the day. Appetite has improved as well. Medications: Reviewed: Yes Medication Review Details: Active Medications Generic Name Dose Route Start Last Admin Trade Name Freq PRN Reason Stop Dose Admin Acetaminophen 650 mg 04/05/20 08:25 04/08/20 20:17 Tylenol PO 650 mg Q4H PRN Administration MILD PAIN OR INCR EASE TEMP Diltiazem HCl 30 mg 04/08/20 09:30 04/09/20 08:40 Cardizem PO 30 mg Q6H FABY Administration Escitalopram Oxala te 10 mg 04/09/20 09:00 04/09/20 08:43 Lexapro PO 10 mg DAILY FABY Administration Fludrocortisone Ac etate 0.3 mg 04/03/20 09:00 04/03/20 09:54 Florinef PO Not Given DAILY FABY Furosemide 40 mg 04/07/20 09:15 04/08/20 08:59 Lasix IVP 40 mg Q24H FABY Administration Haloperidol Lactat e 5 mg 04/06/20 20:44 04/06/20 21:57 Haldol Inj IM 5 mg Q6H PRN Administration AGITATION Hydralazine HCl 10 mg 04/07/20 09:13 Apresoline IVP Q4H PRN elevated blood pr essure Amiodarone HCl 900 mg/ 518 mls @ 0 mls/h r 04/06/20 01:30 04/06/20 05:25 Dextrose/ IV Misce llaneous IV 0 mg/min Supplies .Q0M FABY 0 mls/hr Titration Protocol Per Protocol Levetiracetam 500 mg/ Sodium 105 mls @ 420 mls /hr 04/06/20 12:15 08/06/20 01:30 Chloride IV 400 mls/hr Q12H FABY Administration Dexmedetomidine HC l 400 mcg/ 104 mls @ 0 mls/h r 04/07/20 23:45 04/09/20 03:15 Sodium Chloride IV 0 mcg/kg/hr .Q0M FABY 0 mls/hr Titration Protocol Per Protocol Diltiazem HCl 125 mg/ Sodium 125 mls @ 0 mls/h r 04/08/20 01:00 04/08/20 01:15 Chloride IV 0 mg/hr .Q0M FABY 0 mls/hr Titration Protocol Per Protocol Imipenem/Cilastati n Sodium 250 100 mls @ 200 mls /hr 04/08/20 15:00 04/09/20 08:35 mg/ Sodium Chlor sharon IV 200 mls/hr Q6H FABY Administration Protocol Lanolin 1 applic 04/03/20 23:11 04/03/20 23:17 Lanolin Oint TOPICAL 1 applic PRN PRN Administration DRYNESS Metoprolol Tartrat e 25 mg 04/02/20 18:15 04/09/20 08:56 Lopressor PO 25 mg BID FABY Administration Metoprolol Tartrat e 5 mg 04/03/20 10:18 04/09/20 08:00 Metoprolol Tartr ate IV 5 mg Q4H PRN Administration HEART RATE-HIGH Potassium Chloride 40 meq 04/09/20 09:00 04/09/20 08:43 Potassium Chlori de Oral Liquid PO 40 meq DAILY FABY Administration Senna/Docusate Sod ium 1 tab 04/09/20 09:00 04/09/20 08:53 Senna-S PO Not Given DAILY FABY levofloxacin [From Levaquin] Allergy (Verified 03/30/20 19:46) Unknown Vitals/I&O/Wt Last Vital Signs Temp 97.5 F L 04/09/20 04:00 Pulse 117 H 04/09/20 06:00 Resp 16 04/09/20 06:00 BP 117/90 04/09/20 06:00 Pulse Ox 97 04/09/20 06:00 04/08/20 04/09/20 04/09/20 22:59 06:59 14:59 Intake Total 940 / 1145 34.000 / 1179.000 100 / 100 Output Total 650 / 650 150 / 800 Balance 290 / 495 -116.000 / 379.000 100 / 100 Physical Exam Const: COMMON NORMALS: no acute distress GENERAL APPEARANCE: cooperative, comfortable and frail appearing ORIENTATION/CONSCIOUSNESS: Yes awake and Yes oriented to person OTHER: -Sitting in recliner by bedside HENMT: COMMON NORMALS: normocephalic, atraumatic, hearing grossly normal bilaterally and moist oral mucous membranes HEAD & SCALP: normocephalic and atraumatic OTHER: -Fading left periorbital bruising Eye: COMMON NORMALS: Equal, round and reactive pupils present, EOMs intact bilaterally and conjunctivae normal CONJUNCTIVA: Yes conjunctivae normal PUPIL: Yes Equal, round and reactive pupils present Neck/C-Spine: COMMON NORMALS: full ROM GENERAL: Yes normal visual inspection and Yes trachea midline Resp: COMMON NORMALS: No retractions, No use of accessory muscles and clear to auscultation bilaterally EFFORT & INSPECTION: Yes able to speak in complete sentences, Yes symmetric chest movement and Yes tachypneic AUSCULTATION: clear to auscultation bilaterally and crackles OTHER: -on heated high flow NC (FiO2-30-35%) Cardio: COMMON NORMALS: regular rate, regular rhythm, S1 normal heart sound present, S2 normal heart sound present and No murmurs present (Cardio) RATE: regular rate and tachycardic (intermittently) RHYTHM: regular rhythm HEART SOUNDS: S1 normal heart sound present and S2 normal heart sound present GI: COMMON NORMALS: Normal to inspection, nondistended, normoactive bowel sounds present, Soft to palpation and non-tender PALPATION: Yes Soft to palpation : BLADDER/KIDNEY EXAM: Yes catheter in place Catheter type (Female): urethral Extremity: COMMON NORMALS: normal to inspection, full ROM and no clubbing, cyanosis or edema; negative for no pedal edema Neuro: COMMON NORMALS: moves all extremities, no focal motor deficits and no sensory deficits noted SENSORIUM/ORIENTATION: Yes oriented to person OTHER: -mental status waxes and wanes Psych: COMMON NORMALS: Normal thought process present, cooperative, normal affect (low threshold for anxiety) and speech normal SPEECH: Yes normal speech THOUGHT PROCESS: Normal thought process present INSIGHT: Limited insight present (Psych) Skin: COMMON NORMALS: no jaundice, no petechiae and no mottling NARRATIVE SKIN EXAM: -fading bruising diffusely Urinary Catheter Management^: Fan Latex Free: Cath Placed During This Visit: yes Reason for Continuing Indwelling Catheter: Accurate Measurement of Urinary Output in Critically Ill Patients Urinary Catheter Date of Insertion: 04/03/20 Urinary Catheter Time of Insertion: 00:00 Data : 04/08/20 04:50 04/09/20 04:30 Micro: Microbiology 04/03/20 15:35 Blood Culture - Final Blood NO GROWTH AFTER 5 DAYS 04/07/20 11:00 Blood Culture - Preliminary Blood NEGATIVE TO DATE 04/07/20 10:54 Blood Culture - Preliminary Blood NEGATIVE TO DATE A&P Assessment and plan (1) Fever: -has been afebrile x > 24 hrs -CT A/P (03/30): descending colon colitis -CXR (04/06): progressive bilateral opacifications, probably combination of pneu monia and edema. Noted improvement on repeat imaging today -influenza and COVID-19 negative -on Primaxin -blood cx: negative, urine cx: negative; with slight leukocytosis and fever, repeat UA negative, blood cx prelim negative -C.difficile and enteric bacterial panel negative -no noted rigidity but with cluster of fever, hemodynamic instability, altered mental status, NMS is a consideration; had previously been noted to have mild CPK elevation, repeat normalized Status: Acute Qualifiers: Fever type: unspecified Qualified Code(s): R50.9 - Fever, unspecified (2) Encephalopathy acute: -likely multifactorial given cluster of symptoms including possible Lewy body dementia, seizure disorder, multisystem atrophy with infection as noted above, delirium -appreciate Psychiatry input; MMSE-17/30. Will likely need to repeat this once sensorium clears some more -fall, aspiration, seizure precautions -Neurology f/u as outpatient -sitter at bedside -off benzodiazepines at this time due to likelihood that this is causing more clouding of her sensorium and worsening her delirium particularly with her age -use Haldol PRN if severe agitation. May require antipsychotics Status: Acute (3) Colitis: -as noted above Status: Acute (4) Orthostasis: -unclear etiology given the cluster of symptoms, differentials include autonomic dysfunction -Florinef had been on hold, may need to resume due to noted hypotension overnight -close monitoring of vital signs; now hypertensive urgency; hydralazine PRN -has had recurrent syncopal episodes -telemetry monitoring -Echo: EF=71%, G1DD, mild LVH, no RWMA, trace MR, trace AR, trace TR -due to concern for fluid overload, has been on IV diuresis; hold this for now as BP trending down and clinically appears compensated Status: Acute (5) PÉREZ (acute kidney injury): -continue to monitor renal function particularly with IV diuresis -renally dose meds, avoid nephrotoxins Status: Acute (6) Recurrent syncope: -as noted above; no episodes here Status: Acute (7) Tachycardia: -had been noted previously with PACs on telemetry -noted to develop atrial fibrillation with RVR, received Cardizem bolus and on Amiodarone drip, weaned off. -on BB -telemetry monitoring -Echo as noted above -anemic so may not be a good candidate for AC -replace lytes, particularly K, Mg as needed -elevated D-dimer, no PE on CTA chest Status: Acute (8) Hypoxia: -requiring high flow NC; avoid BiPAP use due to concern for aspiration -evidence of pneumonia on imaging; suspect some degree of fibrosis and potentially pulmonary hypertension -on antibiotics -continue to monitor respiratory status Status: Acute (9) Pyuria: -UA with noted hematuria/pyuria/trace bacteria. Repeat UA showing trace bacteria -urine cx negative Status: Resolved (10) Seizures: -has been following up with Dr. Rebolledo (Neurology) at [facility] -on [facility] -seizure precautions Status: Chronic (11) Anxiety: -cymbalta on hold -off anxiolytics, sedating meds due to risk of prolonging delirium -Haldol PRN Status: Chronic Additional A&P Information -repeat ST evaluation appreciated; advanced to mechanical soft diet -Acute macrocytic anemia; previous hemoglobin wnl; Hg stable, continue to monitor closely -Hypomagnesemia; resolved, replace as needed -Elevated CPK-resolved; statin on hold -Hyperglycemia; A1c-5.7 -strict fall precautions, request PT evaluation once hemodynamic and respiratory status allows -DVT ppx with SCDs, AC on hold due to anemia -Dispo: Home with services ([place]) -Code status: FULL code; updated at bedside; would like patient to return home on discharge if at all possible -ICU care due to low threshold for decompensation, delirium, hemodynamic instability Attestations Medical Necessity Statement*: Patient requires hospitalization for continued treatment of pneumonia, encephalopathy pending consistent improvement in mental status. Time Spent in Patient Care: 16 - 35 minutes (>than 50% of time spent in counselling and/or direct pt care on unit) . Coding Level of Care Code Acute Fisher Sponge Hooking for Chg Fwd Exam Comprehensive Diagnoses Fever R50.9 Fever type: unspecified Encephalopathy acute G93.40 Colitis K52.9 Orthostasis I95.1 PÉREZ (acute kidney injury) N17.9 Recurrent syncope R55 Tachycardia R00.0 Hypoxia R09.02 Pyuria R82.81 Seizures R56.9 Anxiety F41.9
--- NOTE | 2020-04-09 09:10 | PC.NURSE ---
Episode: Pt on BSC, bearing down to have BM. (Small loose BM noted) Pt slumped forward, eyes remained open. Pt not responding. Pt vagaled/ had syncopal episode or absent seizure. Pt limp, put back to bed. Pt roused in less than 5 minutes. VSS. Pt does not remember.
--- NOTE | 2020-04-09 18:00 | PC.NURSE ---
Allyson meds: Retrieved from [facility]. took pt's home meds home.
[2020-04-09] MEDS: metoprolol tartrate 25 mg Tablet 37.5 MG PO (18:09)
--- NOTE | 2020-04-09 19:41 | PC.NURSE ---
Patient stated she was ready to go to her room, this is NOT my room . Patient reoriented, precedex infusion restarted. Patient has had similar experiences the past few nights per this RN.
--- NOTE | 2020-04-09 19:46 | PC.NURSE ---
Shift summary: Pt alert today. She is more oriented at end of shift than beginning. Pt up to chair for breakfast. Then to [facility], small BM. Pt had an episode (see earlier note) was put back to bed, roused easily after a few minutes. Pt then up to chair for lunch, in recliner with feet up most of the day, tolerated well. She has had an increased heart rate before breakfast, received IV metoprolol, rate improved. Metoprolol PO dosage increased to 37.5mg this evening. Pt has ate well throughout the day. She did choke on her milk this am, encouraged to slow down, no further episodes. She has had 525ml of dark urine output. Her here this evening for visiting. Pt ready to go back to bed, per her at shift change, she is starting to mess with monitor wires some, reminded to leave alone, she left alone.
[2020-04-09] MEDS: haloperidol inj 5 mg/mL INJ 1 mL IM (19:58)
[2020-04-09] MEDS: dilTIAZem 30 mg Tablet 60 MG PO (20:33)
[2020-04-10] VITALS (24 sets, daily range): BP systolic 88–157; BP diastolic 49–99; PULSE 64–100; RESP 12–27; TEMP 36.6–37.1; O2SAT 90–100
[2020-04-10] MEDS: potassium chloride oral liq 20 mEq/15 mL UDC 40 MEQ PO (08:02)
[2020-04-10] MEDS: metoprolol tartrate 25 mg Tablet 37.5 MG PO ×2 (08:03→18:02)
[2020-04-10] MEDS: sennosides-docusate Tablet 1 TAB PO (08:03)
[2020-04-10] MEDS: dilTIAZem 30 mg Tablet 60 MG PO ×3 (08:03→20:40)
[2020-04-10] MEDS: escitalopram 10 mg Tablet PO (08:04)
--- NOTE | 2020-04-10 10:00 | PC.SOCIAL ---
IMM was completed on 04/10/20 @ [id number]
--- NOTE | 2020-04-10 10:52 | PM.PN ---
Subjective Subjective: Interval history: Quite sleepy during my encounter, sitter at bedside, required Precedex drip and haldol overnight due to agitation. More hemodynamically stable today, afebrile, has been weaned off heated high flow NC and is currently on 2 L NC, had 200 mL urine output overnight. Medications: Reviewed: Yes Medication Review Details: Active Medications Generic Name Dose Route Start Last Admin Trade Name Freq PRN Reason Stop Dose Admin Acetaminophen 650 mg 04/05/20 08:25 04/08/20 20:17 Tylenol PO 650 mg Q4H PRN Administration MILD PAIN OR INCR EASE TEMP Diltiazem HCl 60 mg 04/09/20 21:30 04/10/20 08:03 Cardizem PO 60 mg Q6H FABY Administration Escitalopram Oxala te 10 mg 04/09/20 09:00 04/10/20 08:04 Lexapro PO 10 mg DAILY FABY Administration Fludrocortisone Ac etate 0.3 mg 04/03/20 09:00 04/03/20 09:54 Florinef PO Not Given DAILY FABY Furosemide 20 mg 04/10/20 16:00 Lasix PO BID@08,16 FABY Haloperidol Lactat e 5 mg 04/06/20 20:44 04/06/20 21:57 Haldol Inj IM 5 mg Q6H PRN Administration AGITATION Hydralazine HCl 10 mg 04/07/20 09:13 Apresoline IVP Q4H PRN elevated blood pr essure Amiodarone HCl 900 mg/ 518 mls @ 0 mls/h r 04/06/20 01:30 04/06/20 05:25 Dextrose/ IV Misce llaneous IV 0 mg/min Supplies .Q0M FABY 0 mls/hr Titration Protocol Per Protocol Levetiracetam 500 mg/ Sodium 105 mls @ 420 mls /hr 04/06/20 12:15 04/10/20 00:04 Chloride IV 400 mls/hr Q12H FABY Administration Dexmedetomidine HC l 400 mcg/ 104 mls @ 0 mls/h r 04/07/20 23:45 04/09/20 22:00 Sodium Chloride IV 0.4 mcg/kg/hr .Q0M FABY 6.8 mls/hr Titration Protocol Per Protocol Diltiazem HCl 125 mg/ Sodium 125 mls @ 0 mls/h r 04/08/20 01:00 04/08/20 01:15 Chloride IV 0 mg/hr .Q0M FABY 0 mls/hr Titration Protocol Per Protocol Imipenem/Cilastati n Sodium 500 100 mls @ 200 mls /hr 04/09/20 17:00 04/10/20 08:43 mg/ Sodium Chlor sharon IV 200 mls/hr Q8H FABY Administration Protocol Lanolin 1 applic 04/03/20 23:11 04/03/20 23:17 Lanolin Oint TOPICAL 1 applic PRN PRN Administration DRYNESS Metoprolol Tartrat e 5 mg 04/03/20 10:18 04/09/20 08:00 Metoprolol Tartr ate IV 5 mg Q4H PRN Administration HEART RATE-HIGH Metoprolol Tartrat e 37.5 mg 04/09/20 18:00 04/10/20 08:03 Lopressor PO 37.5 mg BID FABY Administration Midodrine 2.5 mg 04/10/20 15:00 Proamatine PO TID FABY Potassium Chloride 40 meq 04/09/20 09:00 04/10/20 08:02 Potassium Chlori de Oral Liquid PO 40 meq DAILY FABY Administration Senna/Docusate Sod ium 1 tab 04/09/20 09:00 04/10/20 08:03 Senna-S PO 1 tab DAILY FABY Administration levofloxacin [From Levaquin] Allergy (Verified 03/30/20 19:46) Unknown Vitals/I&O/Wt Last Vital Signs Temp 97.9 F 04/10/20 00:00 Pulse 68 04/10/20 09:00 Resp 16 04/10/20 09:00 BP 88/49 04/10/20 09:00 Pulse Ox 99 04/10/20 09:00 04/09/20 04/10/20 04/10/20 22:59 06:59 14:59 Intake Total 750.965 / 1985.965 100 / 2085.965 440 / 440 Output Total 525 / 525 200 / 725 450 / 450 Balance 225.965 / 1460.965 -100 / 1360.965 -10 / -10 Physical Exam Const: COMMON NORMALS: no acute distress GENERAL APPEARANCE: cooperative, comfortable and frail appearing ORIENTATION/CONSCIOUSNESS: Yes awake and Yes oriented to person OTHER: -resting quietly in bed HENMT: COMMON NORMALS: normocephalic, atraumatic, hearing grossly normal bilaterally and moist oral mucous membranes HEAD & SCALP: normocephalic and atraumatic OTHER: -Fading left periorbital bruising Eye: COMMON NORMALS: Equal, round and reactive pupils present, EOMs intact bilaterally and conjunctivae normal CONJUNCTIVA: Yes conjunctivae normal PUPIL: Yes Equal, round and reactive pupils present Neck/C-Spine: COMMON NORMALS: full ROM GENERAL: Yes normal visual inspection and Yes trachea midline Resp: COMMON NORMALS: No retractions, No use of accessory muscles and clear to auscultation bilaterally EFFORT & INSPECTION: Yes able to speak in complete sentences, Yes symmetric chest movement and Yes tachypneic AUSCULTATION: clear to auscultation bilaterally and crackles OTHER: -on 2 L NC Cardio: COMMON NORMALS: regular rate, regular rhythm, S1 normal heart sound present, S2 normal heart sound present and No murmurs present (Cardio) RATE: regular rate RHYTHM: regular rhythm HEART SOUNDS: S1 normal heart sound present and S2 normal heart sound present OTHER: -normotensive GI: COMMON NORMALS: Normal to inspection, nondistended, normoactive bowel sounds present, Soft to palpation and non-tender PALPATION: Yes Soft to palpation : BLADDER/KIDNEY EXAM: Yes catheter in place Catheter type (Female): urethral Extremity: COMMON NORMALS: normal to inspection, full ROM and no clubbing, cyanosis or edema; negative for no pedal edema Neuro: COMMON NORMALS: moves all extremities, no focal motor deficits and no sensory deficits noted SENSORIUM/ORIENTATION: Yes oriented to person OTHER: -mental status waxes and wanes Psych: COMMON NORMALS: Normal thought process present, cooperative, normal affect (low threshold for anxiety) and speech normal SPEECH: Yes normal speech THOUGHT PROCESS: Normal thought process present INSIGHT: Limited insight present (Psych) Skin: COMMON NORMALS: no jaundice, no petechiae and no mottling NARRATIVE SKIN EXAM: -fading bruising diffusely Urinary Catheter Management^: Fan Latex Free: Cath Placed During This Visit: yes Reason for Continuing Indwelling Catheter: Accurate Measurement of Urinary Output in Critically Ill Patients Urinary Catheter Date of Insertion: 04/03/20 Urinary Catheter Time of Insertion: 00:00 Data : 04/08/20 04:50 08/06/20 04:30 A&P Assessment and plan (1) Fever: -has been afebrile x > 24 hrs -CT A/P (03/30): descending colon colitis -CXR (04/06): progressive bilateral opacifications, probably combination of pneumonia and edema. Noted improvement on repeat imaging today -influenza and COVID-19 negative -d/c antibiotics given length of treatment, no fever, no leukocytosis -blood cx: negative, urine cx: negative; with slight leukocytosis and fever, repeat UA negative, blood cx prelim negative -C.difficile and enteric bacterial panel negative -no noted rigidity but with cluster of fever, hemodynamic instability, altered mental status, NMS is a consideration; had previously been noted to have mild CPK elevation, repeat normalized Status: Acute Qualifiers: Fever type: unspecified Qualified Code(s): R50.9 - Fever, unspecified (2) Encephalopathy acute: -likely multifactorial given cluster of symptoms including possible Lewy body dementia, seizure disorder, multisystem atrophy with infection as noted above, delirium -appreciate Psychiatry input; MMSE-17. Will likely need to repeat this once sensorium clears some more -fall, aspiration, seizure precautions -Neurology f/u as outpatient -sitter at bedside -off benzodiazepines due to likelihood that this is causing more clouding of her sensorium and worsening her delirium particularly with her age -use Haldol PRN for severe agitation and has required Precedex drip for the past several nights, may benefit from antipsychotic such as seroquel; need to discuss cardiovascular risk with before initiating treatment. Status: Acute (3) Colitis: -as noted above Status: Resolved (4) Orthostasis: -unclear etiology given the cluster of symptoms, differentials include autonomic dysfunction -Florinef had been on hold, due to trend down in BP, will resume low dose midodrine -close monitoring of vital signs; stable today -has had recurrent syncopal episodes, pre-syncopal episode here (04/09) -telemetry monitoring -Echo: EF=71%, G1DD, mild LVH, no RWMA, trace MR, trace AR, trace TR -due to concern for fluid overload, has been on IV diuresis; clinically appears compensated so will switch to PO Lasix Status: Acute (5) PÉREZ (acute kidney injury): -continue to monitor renal function particularly with IV diuresis; currently wnl -renally dose meds, avoid nephrotoxins Status: Resolved (6) Recurrent syncope: -as noted above Status: Chronic (7) Tachycardia: -had been noted previously with PACs on telemetry -noted to develop atrial fibrillation with RVR during hospital course, received Cardizem bolus and on Amiodarone drip, weaned off. -on BB, oral cardizem -telemetry monitoring -Echo as noted above -anemic so may not be a good candidate for AC -replace lytes, particularly K, Mg as needed -elevated D-dimer, no PE on CTA chest -had Holter monitoring done in 2013 showing baseline sinus rhythm with some bradycardia and tachycardia; no pauses Status: Acute (8) Hypoxia: -weaned off high flow NC; avoid BiPAP use due to concern for aspiration -evidence of pneumonia on imaging; suspect some degree of fibrosis and potentially pulmonary hypertension -off antibiotics -continue to monitor respiratory status -supplemental oxygen as needed; not previously oxygen dependent Status: Acute (9) Pyuria: -UA with noted hematuria/pyuria/trace bacteria. Repeat UA showing trace bacteria -urine cx negative Status: Resolved (10) Seizures: -has been following up with Dr. Rebolledo (Neurology) at [facility] -on Keppra, switch to PO -seizure precautions Status: Chronic (11) Anxiety: -cymbalta on hold -off anxiolytics, sedating meds due to risk of prolonging delirium -Haldol PRN Status: Chronic Additional A&P Information -repeat ST evaluation appreciated; advanced to mechanical soft diet -Acute macrocytic anemia; previous hemoglobin wnl; Hg stable, continue to monitor closely -Hypomagnesemia; resolved, replace as needed -Elevated CPK-resolved; resume statin -Hyperglycemia; A1c-5.7 -strict fall precautions, PT evaluation appreciated -DVT ppx with SCDs, AC on hold due to anemia -Dispo: Home with services ([place]) -Code status: FULL code; updated at bedside; would like patient to return home on discharge if at all possible -ICU care due to low threshold for decompensation, delirium, hemodynamic instability Attestations Medical Necessity Statement*: Patient requires hospitalization for continued management of encephalopathy, needs continued hemodynamic status monitoring. Time Spent in Patient Care: 16 - 35 minutes (>than 50% of time spent in counselling and/or direct pt care on unit). Coding Level of Care Code Acute Guest Experience Captain for Chg Fwd Diagnoses Fever R50.9 Fever type: unspecified Encephalopathy acute G93.40 Colitis K52.9 Orthostasis I95.1 PÉREZ (acute kidney injury) N17.9 Recurrent syncope R55 Tachycardia R00.0 Hypoxia R09.02 Pyuria R82.81 Seizures R56.9 Anxiety F41.9
[2020-04-10] MEDS: midodrine 5 mg TABLET 2.5 MG PO ×2 (14:59→20:40)
[2020-04-10] MEDS: FUROsemide 20 mg Tablet PO (15:01)
[2020-04-10] MEDS: levETIRAcetam 500 mg Tablet PO (18:02)
--- NOTE | 2020-04-10 18:19 | PC.NURSE ---
Shift summary Patient started morning off sleepy/drowsy and confused but has been awake, smiling, and alert to person, , place, month and year most of the day. Patient has been pleasant. Urinary output has increased (2000 ml) per this shift. Patient eating well and taking PO. Following all commands, sat in chair for 1-2 hours. Patient's , Home, visited entire visiting hours, had pleasant visit with patient, reported she's pretty well at baseline at this time. Patient's facial affect did become flattened when left. Will continue to monitor for agitation, as it has been documented to happen around maintenance technician 2nd shift change. Patient on 0.5 LNC sat 93%, diminished, diminished with crackles in posterior bases. BP has been good, no syncopal episode. IV's flushed, mcfadden emptied.
[2020-04-10] MEDS: atorvastatin 40 mg Tablet PO (20:40)
[2020-04-11] VITALS (24 sets, daily range): BP systolic 125–185; BP diastolic 62–101; PULSE 68–95; RESP 16–36; TEMP 35.9–36.7; O2SAT 87–100
[2020-04-11] MEDS: dilTIAZem 30 mg Tablet 60 MG PO ×4 (03:06→21:16)
--- NOTE | 2020-04-11 06:21 | PC.NURSE ---
SHIFT SUMMARY Patient was alert and oriented all night until around 0610. She stated she was feeling sick and was attempting to get out of bed. Assisted patient to standing position and she had a bowel movement in the floor. Patient was diaphoretic and shaking. Cleaned patient and assisted to sitting position in chair. Vital signs stable. Patient is now stating she wants to go home and asking staff to give her a ride home. Attempts to reorient made. Patient sitter at bedside.
[2020-04-11] MEDS: midodrine 5 mg TABLET 2.5 MG PO ×3 (08:31→21:16)
[2020-04-11] MEDS: potassium chloride oral liq 20 mEq/15 mL UDC 40 MEQ PO (08:31)
[2020-04-11] MEDS: metoprolol tartrate 25 mg Tablet 37.5 MG PO ×2 (08:31→18:01)
[2020-04-11] MEDS: escitalopram 10 mg Tablet PO (08:32)
[2020-04-11] MEDS: levETIRAcetam 500 mg Tablet PO ×2 (08:32→18:01)
[2020-04-11] MEDS: FUROsemide 20 mg Tablet PO ×2 (08:33→15:58)
--- NOTE | 2020-04-11 08:50 | PM.PN ---
Subjective Subjective: Interval history: Patient seemed to have done well overnight, some confusion but easily redirected, no Haldol or Precedex needed. Had 2700 mL urine output overnight, hemodynamically stable, oxygen requirement continues to decrease. Quite emotional as she thinks that her does not know where she is. Continue to be emotional during visit with her this afternoon, very tearful when she could not go home with him. Discontinue Fan catheter. Medications: Reviewed: Yes Medication Review Details: Active Medications Generic Name Dose Route Start Last Admin Trade Name Freq PRN Reason Stop Dose Admin Acetaminophen 650 mg 04/05/20 08:25 04/08/20 20:17 Tylenol PO 650 mg Q4H PRN Administration MILD PAIN OR INCR EASE TEMP Atorvastatin Calci um 40 mg 04/10/20 21:00 04/10/20 20:40 Lipitor PO 40 mg BEDTIME FABY Administration Diltiazem HCl 60 mg 04/09/20 21:30 04/11/20 08:44 Cardizem PO 60 mg Q6H FABY Administration Escitalopram Oxala te 10 mg 04/09/20 09:00 04/11/20 08:32 Lexapro PO 10 mg DAILY FABY Administration Furosemide 20 mg 04/10/20 16:00 04/11/20 08:33 Lasix PO 20 mg BID@08,16 FABY Administration Haloperidol Lactat e 5 mg 04/06/20 20:44 04/06/20 21:57 Haldol Inj IM 5 mg Q6H PRN Administration AGITATION Hydralazine HCl 10 mg 04/07/20 09:13 Apresoline IVP Q4H PRN elevated blood pr essure Dexmedetomidine HC l 400 mcg/ 104 mls @ 0 mls/h r 04/07/20 23:45 04/09/20 22:00 Sodium Chloride IV 0.4 mcg/kg/hr .Q0M FABY 6.8 mls/hr Titration Protocol Per Protocol Lanolin 1 applic 04/03/20 23:11 04/03/20 23:17 Lanolin Oint TOPICAL 1 applic PRN PRN Administration DRYNESS Levetiracetam 500 mg 04/10/20 18:00 04/11/20 08:32 Keppra PO 500 mg BID FABY Administration Metoprolol Tartrat e 5 mg 04/03/20 10:18 04/09/20 08:00 Metoprolol Tartr ate IV 5 mg Q4H PRN Administration HEART RATE-HIGH Metoprolol Tartrat e 37.5 mg 04/09/20 18:00 04/11/20 08:31 Lopressor PO 37.5 mg BID FABY Administration Midodrine 2.5 mg 04/10/20 15:00 04/11/20 08:31 Proamatine PO 2.5 mg TID FABY Administration Potassium Chloride 40 meq 04/09/20 09:00 04/11/20 08:31 Potassium Chlori de Oral Liquid PO 40 meq DAILY FABY Administration Senna/Docusate Sod ium 1 tab 04/09/20 09:00 04/11/20 08:33 Senna-S PO Not Given DAILY FABY levofloxacin [From Levaquin] Allergy (Verified 03/30/20 19:46) Unknown Vitals/I&O/Wt Last Vital Signs Temp 98.8 F 04/10/20 20:00 Pulse 83 04/11/20 05:00 Resp 24 H 04/11/20 05:00 BP 146/96 04/11/20 06:00 Pulse Ox 93 04/11/20 05:00 04/10/20 04/11/20 04/11/20 22:59 06:59 14:59 Intake Total 240 / 920 350 / 350 Output Total 1550 / 1999 2700 / 4700 Balance -1310 / -1080 -2700 / -3780 350 / 350 Physical Exam Const: COMMON NORMALS: no acute distress GENERAL APPEARANCE: cooperative, comfortable and frail appearing ORIENTATION/CONSCIOUSNESS: Yes awake and Yes oriented to person OTHER: -Sitting in recliner by bedside HENMT: COMMON NORMALS: normocephalic, atraumatic, hearing grossly normal bilaterally and moist oral mucous membranes HEAD & SCALP: normocephalic and atraumatic OTHER: -Fading left periorbital bruising Eye: COMMON NORMALS: Equal, round and reactive pupils present, EOMs intact bilaterally and conjunctivae normal CONJUNCTIVA: Yes conjunctivae normal PUPIL: Yes Equal, round and reactive pupils present Neck/C-Spine: COMMON NORMALS: full ROM GENERAL: Yes normal visual inspection and Yes trachea midline Resp: COMMON NORMALS: No retractions, No use of accessory muscles and clear to auscultation bilaterally EFFORT & INSPECTION: Yes able to speak in complete sentences, Yes symmetric chest movement and Yes tachypneic AUSCULTATION: clear to auscultation bilaterally and crackles OTHER: -on 1 L NC Cardio: COMMON NORMALS: regular rate, regular rhythm, S1 normal heart sound present, S2 normal heart sound present and No murmurs present (Cardio) RATE: regular rate RHYTHM: regular rhythm HEART SOUNDS: S1 normal heart sound present and S2 normal heart sound present OTHER: -normotensive GI: COMMON NORMALS: Normal to inspection, nondistended, normoactive bowel sounds present, Soft to palpation and non-tender PALPATION: Yes Soft to palpation Extremity: COMMON NORMALS: normal to inspection, full ROM and no clubbing, cyanosis or edema; negative for no pedal edema Neuro: COMMON NORMALS: moves all extremities, no focal motor deficits and no sensory deficits noted SENSORIUM/ORIENTATION: Yes oriented to person OTHER: -mental status waxes and wanes Psych: COMMON NORMALS: Normal thought process present, cooperative, normal affect (low threshold for anxiety; emotional and tearful) and speech normal SPEECH: Yes normal speech MOOD & AFFECT: Yes Labile affect present THOUGHT PROCESS: Normal thought process present INSIGHT: Limited insight present (Psych) Skin: COMMON NORMALS: no jaundice, no petechiae and no mottling NARRATIVE SKIN EXAM: -fading bruising diffusely Urinary Catheter Management^: Fan Latex Free: Cath Placed During This Visit: yes Reason for Continuing Indwelling Catheter: Accurate Measurement of Urinary Output in Critically Ill Patients Urinary Catheter Date of Insertion: 04/03/20 Urinary Catheter Time of Insertion: 00:00 Data : 04/08/20 04:50 04/09/20 04:30 A&P Assessment and plan (1) Fever: -has been afebrile x > 24 hrs -CT A/P (03/30): descending colon colitis -CXR (04/06): progressive bilateral opacifications, probably combination of pneumonia and edema. Noted improvement on repeat imaging today -influenza and COVID-19 negative -d/c antibiotics given length of treatment, no fever, no leukocytosis -blood cx: negative, urine cx: negative; with slight leukocytosis and fever, repeat UA negative, blood cx prelim negative -C.difficile and enteric bacterial panel negative -no noted rigidity but with cluster of fever, hemodynamic instability, altered mental status, NMS is a consideration; had previously been noted to have mild CPK elevation, repeat normalized Status: Acute Qualifiers: Fever type: unspecified Qualified Code(s): R50.9 - Fever, unspecified (2) Encephalopathy acute: -likely multifactorial given cluster of symptoms including possible Lewy body dementia, seizure disorder, multisystem atrophy with infection as noted above, delirium -appreciate Psychiatry input; MMSE-17/30. Will likely need to repeat this once sensorium clears some more -fall, aspiration, seizure precautions -Neurology f/u as outpatient -sitter at bedside -off benzodiazepines due to likelihood that this is causing more clouding of her sensorium and worsening her delirium particularly with her age -no Haldol or Precedex required overnight Status: Acute (3) Colitis: -as noted above Status: Resolved (4) Orthostasis: -unclear etiology given the cluster of symptoms, differentials include autonomic dysfunction -Florinef had been on hold, due to trend down in BP, will resume low dose midodrine -close monitoring of vital signs; stable today -has had recurrent syncopal episodes, pre-syncopal episode here (04/09) -telemetry monitoring -Echo: EF=71%, G1DD, mild LVH, no RWMA, trace MR, trace AR, trace TR -clinically appears compensated, on PO Lasix Status: Acute (5) PÉREZ (acute kidney injury): -continue to monitor renal function particularly with IV diuresis; currently wnl -renally dose meds, avoid nephrotoxins Status: Resolved (6) Recurrent syncope: -as noted above Status: Chronic (7) Tachycardia: -had been noted previously with PACs on telemetry -noted to develop atrial fibrillation with RVR during hospital course, received Cardizem bolus and on Amiodarone drip, weaned off. -on BB, oral cardizem -telemetry monitoring -Echo as noted above -anemic so may not be a good candidate for AC -replace lytes, particularly K, Mg as needed -elevated D-dimer, no PE on CTA chest -had Holter monitoring done in 2013 showing baseline sinus rhythm with some bradycardia and tachycardia; no pauses Status: Acute (8) Hypoxia: -weaned off high flow NC; avoid BiPAP use due to concern for aspiration -evidence of pneumonia on imaging; suspect some degree of fibrosis and potentially pulmonary hypertension -off antibiotics -continue to monitor respiratory status -supplemental oxygen as needed; not previously oxygen dependent Status: Acute (9) Pyuria: -UA with noted hematuria/pyuria/trace bacteria. Repeat UA showing trace bacteria -urine cx negative Status: Resolved (10) Seizures: -has been following up with Dr. Rebolledo (Neurology) at [facility] -on Keppra -seizure precautions Status: Chronic (11) Anxiety: -resume cymbalta -off anxiolytics, sedating meds due to risk of prolonging delirium -Haldol PRN Status: Chronic Additional A&P Information -on mechanical soft diet -Acute macrocytic anemia; previous hemoglobin wnl; Hg stable, continue to monitor closely -Hypomagnesemia; resolved, replace as needed -Elevated CPK-resolved -Dyslipidemia; on statin -Hyperglycemia; A1c-5.7 -strict fall precautions, PT evaluation appreciated -DVT ppx with SCDs, AC on hold due to anemia -Dispo: Home with services ([place]) -Code status: FULL code; updated at bedside; would like patient to return home on discharge if at all possible; will discuss options for caregiver with case management. Patient will need bedside commode, shower chair due to overall deconditioning and underlying dementia and recurrent falls. Per she already has a walker at home. -ICU care due to low threshold for decompensation, delirium, hemodynamic instability. Changing her environment would likely be more detrimental so we will keep in ICU. Attestations Medical Necessity Statement*: Patient requires hospitalization for continued management of encephalopathy. Time Spent in Patient Care: 16 - 35 minutes (>than 50% of time spent in counselling and/or direct pt care on unit). Coding Level of Care Code Acute Order Schedule Clerk for [facility] Fwd Exam Comprehensive Diagnoses Fever R50.9 Fever type: unspecified Encephalopathy acute G93.40 Colitis K52.9 Orthostasis I95.1 PÉREZ (acute kidney injury) N17.9 Recurrent syncope R55 Tachycardia R00.0 Hypoxia R09.02 Pyuria R82.81 Seizures R56.9 Anxiety F41.9
--- NOTE | 2020-04-11 09:45 | PC.NURSE ---
Pt pulled out IV in right hand.. She told this nurse, well, hun it did not have and IVs running it it so I took it out.
[2020-04-11] MEDS: duloxetine 30 mg Capsule PO (10:31)
--- NOTE | 2020-04-11 14:20 | PC.NURSE ---
Pt agitated, pulling at monitoring wires. Repeatedly pulls at pulse ox probe. She decided she need to go for another walk. Pt ambulated with wheeled walker and 1-2 assist. Pt leaned to the left, needed reminded to hold her head up and watch were she was going. Pt attempting to push walker towards exit, was able to redirect her took multiple attempts to do so. She ambulated an enite lap around nurse station back to ICU 12. Pt has been insisting since back in her room that this is not her room, she needs to go back to the house. When speaking to her about going home, she says I know I am not going home today. But I want to go back to that house we were at. Pt then stated It makes me mad when you tell me that was what was happening (referring to staying in ICU 12) when you are wrong. I know what was happening and I was at that other house
--- NOTE | 2020-04-11 16:10 | PC.NURSE ---
Pt not as agitated. But she does remain irritated. She state you do not need to do ANYTHING for me. She is not fidgeting as much. just came in to see her. She started gathering all her things off the bedside table and getting up out of chair. Pt now settled into hair speaking with .
--- NOTE | 2020-04-11 18:45 | PC.NURSE ---
Shift summary: Pt started the day mostly oriented, Deteriorated to confusion about where she was, why she was here. . Thought staff lied to her. Thought she was going to go home today. PT worked with her , she was unsteady with poor balance and impulse control. Later she was able to walk around the unit with assistance and walker, still has poor balance, she leans to the left. Fan removed today around noon, she urinated 200ml at 1815. O2 decreased to 1pm/NC. Tried room air, sats hovered around 87%. came in visiting hours, Pt tried to get and and leave, he would attempt to redirect her, she got angry with him. Both ended up tearful. Conversation with pt and about her not ready/ it would not be safe for her to go home at this time. Pt remains tearful, and apologetic to . Dr Joshua then cam to room and had conversation about pt's plan of care. Arrangements to be made for [place] to help make home care arrangements for when she is ready to discharge.
[2020-04-11] MEDS: atorvastatin 40 mg Tablet PO (21:16)
[2020-04-12] VITALS (24 sets, daily range): BP systolic 97–165; BP diastolic 51–91; PULSE 63–82; RESP 12–26; TEMP 36.7–37.1; O2SAT 93–99
[2020-04-12] MEDS: dilTIAZem 30 mg Tablet 60 MG PO ×4 (03:21→20:53)
[2020-04-12] MEDS: potassium chloride ER 10 mEq Tablet 40 MEQ PO (07:53)
[2020-04-12] MEDS: metoprolol tartrate 25 mg Tablet 37.5 MG PO ×2 (07:55→16:56)
[2020-04-12] MEDS: escitalopram 10 mg Tablet PO (07:55)
[2020-04-12] MEDS: duloxetine 30 mg Capsule PO (07:55)
[2020-04-12] MEDS: midodrine 5 mg TABLET 2.5 MG PO ×3 (07:57→20:05)
[2020-04-12] MEDS: levETIRAcetam 500 mg Tablet PO ×2 (07:59→16:56)
[2020-04-12] MEDS: FUROsemide 20 mg Tablet PO ×2 (07:59→13:42)
--- NOTE | 2020-04-12 08:06 | PM.PN ---
Subjective Subjective: Interval history: Hemodynamically stable, afebrile, no meds required overnight for agitation. Sitter at bedside, sitting in recliner by bedside, she is alert, oriented to self. Seen ambulating with walker during physical therapy session, requires a lot of cueing and redirecting, fatigues easily, noted to be somewhat hypotensive following therapy session. Seemed to do much better in the afternoon. Medications: Reviewed: Yes Medication Review Details: Active Medications Generic Name Dose Route Start Last Admin Trade Name Freq PRN Reason Stop Dose Admin Acetaminophen 650 mg 04/05/20 08:25 04/08/20 20:17 Tylenol PO 650 mg Q4H PRN Administration MILD PAIN OR INCR EASE TEMP Atorvastatin Calci um 40 mg 04/10/20 21:00 04/11/20 21:16 Lipitor PO 40 mg BEDTIME FABY Administration Diltiazem HCl 60 mg 04/09/20 21:30 04/12/20 07:52 Cardizem PO 60 mg Q6H FABY Administration Duloxetine HCl 30 mg 04/11/20 09:00 04/12/20 07:55 Cymbalta PO 30 mg DAILY FABY Administration Escitalopram Oxala te 10 mg 04/09/20 09:00 04/12/20 07:55 Lexapro PO 10 mg DAILY FABY Administration Furosemide 20 mg 04/10/20 16:00 04/12/20 07:59 Lasix PO 20 mg BID@08,16 FABY Administration Haloperidol Lactat e 5 mg 04/06/20 20:44 04/06/20 21:57 Haldol Inj IM 5 mg Q6H PRN Administration AGITATION Hydralazine HCl 10 mg 04/07/20 09:13 Apresoline IVP Q4H PRN elevated blood pr essure Dexmedetomidine HC l 400 mcg/ 104 mls @ 0 mls/h r 04/07/20 23:45 04/09/20 22:00 Sodium Chloride IV 0.4 mcg/kg/hr .Q0M FABY 6.8 mls/hr Titration Protocol Per Protocol Lanolin 1 applic 04/03/20 23:11 04/03/20 23:17 Lanolin Oint TOPICAL 1 applic PRN PRN Administration DRYNESS Levetiracetam 500 mg 04/10/20 18:00 04/12/20 07:59 Keppra PO 500 mg BID FABY Administration Metoprolol Tartrat e 5 mg 04/03/20 10:18 04/09/20 08:00 Metoprolol Tartr ate IV 5 mg Q4H PRN Administration HEART RATE-HIGH Metoprolol Tartrat e 37.5 mg 04/09/20 18:00 04/12/20 07:55 Lopressor PO 37.5 mg BID FABY Administration Midodrine 2.5 mg 04/10/20 15:00 04/12/20 07:57 Proamatine PO 2.5 mg TID FABY Administration Potassium Chloride 40 meq 04/11/20 10:15 04/12/20 07:53 Klor-Con 10 PO 40 meq DAILY FABY Administration Senna/Docusate Sod ium 1 tab 04/09/20 09:00 04/12/20 08:00 Senna-S PO Not Given DAILY FABY levofloxacin [From Levaquin] Allergy (Verified 03/30/20 19:46) Unknown Vitals/I&O/Wt Last Vital Signs Temp 98.1 F 04/11/20 19:00 Pulse 65 04/12/20 05:00 Resp 14 04/12/20 05:00 BP 138/71 04/12/20 05:00 Pulse Ox 97 04/12/20 05:00 04/11/20 04/12/20 04/12/20 22:59 06:59 14:59 Intake Total 300 / 1000 Output Total 200 / 1650 700 / 2350 Balance 100 / -650 -700 / -1350 Physical Exam Const: COMMON NORMALS: no acute distress GENERAL APPEARANCE: cooperative, comfortable and frail appearing ORIENTATION/CONSCIOUSNESS: Yes awake and Yes oriented to person OTHER: -Sitting in recliner by bedside HENMT: COMMON NORMALS: normocephalic, atraumatic, hearing grossly normal bilaterally and moist oral mucous membranes HEAD & SCALP: normocephalic and atraumatic OTHER: -Fading left periorbital bruising Eye: COMMON NORMALS: Equal, round and reactive pupils present, EOMs intact bilaterally and conjunctivae normal CONJUNCTIVA: Yes conjunctivae normal PUPIL: Yes Equal, round and reactive pupils present Neck/C-Spine: COMMON NORMALS: full ROM GENERAL: Yes normal visual inspection and Yes trachea midline Resp: COMMON NORMALS: No retractions, No use of accessory muscles and clear to auscultation bilaterally EFFORT & INSPECTION: Yes able to speak in complete sentences, Yes symmetric chest movement and Yes tachypneic AUSCULTATION: clear to auscultation bilaterally and crackles OTHER: -on 1 L NC Cardio: COMMON NORMALS: regular rate, regular rhythm, S1 normal heart sound present, S2 normal heart sound present and No murmurs present (Cardio) RATE: regular rate RHYTHM: regular rhythm HEART SOUNDS: S1 normal heart sound present and S2 normal heart sound present OTHER: -normotensive though blood pressure and HR intermittently labile GI: COMMON NORMALS: Normal to inspection, nondistended, normoactive bowel sounds present, Soft to palpation and non-tender PALPATION: Yes Soft to palpation : BLADDER/KIDNEY EXAM: Yes catheter in place Catheter type (Female): urethral Extremity: COMMON NORMALS: normal to inspection, full ROM and no clubbing, cyanosis or edema; negative for no pedal edema Neuro: COMMON NORMALS: moves all extremities, no focal motor deficits and no sensory deficits noted SENSORIUM/ORIENTATION: Yes oriented to person OTHER: -mental status waxes and wanes Psych: COMMON NORMALS: Normal thought process present, cooperative, normal affect (low threshold for anxiety; emotional and tearful) and speech normal SPEECH: Yes normal speech MOOD & AFFECT: Yes Labile affect present THOUGHT PROCESS: Normal thought process present INSIGHT: Limited insight present (Psych) Skin: COMMON NORMALS: no jaundice, no petechiae and no mottling NARRATIVE SKIN EXAM: -fading bruising diffusely Urinary Catheter Management^: Fan Latex Free: Cath Placed During This Visit: yes, but has since been removed by the nurse Reason for Continuing Indwelling Catheter: Decision to DC Catheter Urinary Catheter Date of Insertion: 04/03/20 Urinary Catheter Time of Insertion: 00:00 Date Urinary Catheter Removed: 04/11/20 Time Urinary Catheter Discontinued: 12:15 Data : 04/08/20 04:50 04/09/20 04:30 A&P Assessment and plan (1) Fever: -has been afebrile since 04/06 -CT A/P (03/30): descending colon colitis -CXR (04/06): progressive bilateral opacifications, probably combination of pneumonia and edema. Noted improvement on repeat imaging -influenza and COVID-19 negative -off antibiotics given length of treatment, no fever, no leukocytosis -blood cx: negative, urine cx: negative; with slight leukocytosis and fever, repeat UA negative, blood cx prelim negative -C.difficile and enteric bacterial panel negative -no noted rigidity but with cluster of fever, hemodynamic instability, altered mental status, NMS is a consideration; had previously been noted to have mild CPK elevation, repeat normalized Status: Resolved Qualifiers: Fever type: unspecified Qualified Code(s): R50.9 - Fever, unspecified (2) Encephalopathy acute: -likely multifactorial given cluster of symptoms including possible Lewy body dementia, seizure disorder, multisystem atrophy with infection as noted above, delirium -appreciate Psychiatry input; MMSE-17/30. Will likely need to repeat this once sensorium clears some more -fall, aspiration, seizure precautions -Neurology f/u as outpatient -sitter at bedside -off benzodiazepines due to likelihood that this is causing more clouding of her sensorium and worsening her delirium particularly with her age -no Haldol or Precedex required overnight x 48 hrs -Suspect that this is going to be her new baseline Status: Resolved (3) Colitis: -as noted above Status: Resolved (4) Orthostasis: -unclear etiology given the cluster of symptoms, differentials include autonomic dysfunction -Florinef had been on hold, due to trend down in BP, will resume low dose midodrine -close monitoring of vital signs; stable -has had recurrent syncopal episodes, pre-syncopal episode here (04/09) -telemetry monitoring -Echo: EF=71%, G1DD, mild LVH, no RWMA, trace MR, trace AR, trace TR -clinically appears compensated, on PO Lasix Status: Acute (5) PÉREZ (acute kidney injury): -continue to monitor renal function particularly with IV diuresis; currently wnl -renally dose meds, avoid nephrotoxins Status: Resolved (6) Recurrent syncope: -as noted above Status: Chronic (7) Tachycardia: -had been noted previously with PACs on telemetry -noted to develop atrial fibrillation with RVR during hospital course, received Cardizem bolus and on Amiodarone drip, weaned off. -on BB, oral cardizem -telemetry monitoring -Echo as noted above -anemic so may not be a good candidate for AC -replace lytes, particularly K, Mg as needed -elevated D-dimer, no PE on CTA chest -had Holter monitoring done in 2013 showing baseline sinus rhythm with some bradycardia and tachycardia; no pauses Status: Acute (8) Hypoxia: -weaned off high flow NC; avoid BiPAP use due to concern for aspiration -evidence of pneumonia on imaging; suspect some degree of fibrosis and potentially pulmonary hypertension -off antibiotics -continue to monitor respiratory status -supplemental oxygen as needed; not previously oxygen dependent Status: Acute (9) Pyuria: -UA with noted hematuria/pyuria/trace bacteria. Repeat UA showing trace bacteria -urine cx negative Status: Resolved (10) Seizures: -has been following up with Dr. Rebolledo (Neurology) at [facility] -on Keppra -seizure precautions Status: Chronic (11) Anxiety: -resume cymbalta -off anxiolytics, sedating meds due to risk of prolonging delirium -Haldol PRN Status: Chronic Additional A&P Information -on mechanical soft diet -Acute macrocytic anemia; previous hemoglobin wnl; Hg stable, continue to monitor closely -Hypomagnesemia; resolved, replace as needed -Elevated CPK-resolved -Dyslipidemia; on statin -Hyperglycemia; A1c-5.7 -strict fall precautions, PT evaluation appreciated -DVT ppx with SCDs, AC on hold due to anemia -Dispo: Home with services ([place]) -Code status: FULL code; updated at bedside; would like patient to return home on discharge if at all possible; will discuss options for caregiver with case management. Patient will need bedside commode, shower chair due to overall deconditioning and underlying dementia and recurrent falls. Per she already has a walker at home. Anticipate discharge tomorrow once appropriate DME arranged -ICU care due to low threshold for decompensation, delirium, hemodynamic instability. Changing her environment would likely be more detrimental so we will keep in ICU. Attestations Medical Necessity Statement*: Patient requires hospitalization for continued care pending appropriate disposition. Time Spent in Patient Care: 16 - 35 minutes (>than 50% of time spent in counselling and/or direct pt care on unit). Coding Level of Care Code Acute Plant Operations Engineer for [facility] Fwd Exam Comprehensive Diagnoses Fever R50.9 Fever type: unspecified Encephalopathy acute G93.40 Colitis K52.9 Orthostasis I95.1 PÉREZ (acute kidney injury) N17.9 Recurrent syncope R55 Tachycardia R00.0 Hypoxia R09.02 Pyuria R82.81 Seizures R56.9 Anxiety F41.9
[2020-04-12] MEDS: hyDRALAzine 20 mg/mL INJ 1 mL 10 MG IVP (08:20)
--- NOTE | 2020-04-12 09:32 | PC.NURSE ---
patient was sating 98 on one liter. removed the oxygen and ten minutes later she sated 88. returned her to one liter. she is drowsy this morning but following commands and small smile on her face while resting. she ate her whole breakfast with encouragement. her bp was rising and reached 175/100 she got hydralizine and it went to 100/60.
--- NOTE | 2020-04-12 09:50 | PC.SOCIAL ---
IMM Updated Page 2 of IMM updated and given to patient. Initialed, dated, and timed and placed back in chart.
--- NOTE | 2020-04-12 10:12 | PC.NURSE ---
patient assisted to bsc, some incontinence in her pull up but 750 in bsc. walked with walker to the chair without issue.
--- NOTE | 2020-04-12 13:10 | PC.NURSE ---
patient asked to be walked again, pt reached and she did well this time but kept a chair behind her just in case
[2020-04-12] MEDS: atorvastatin 40 mg Tablet PO (20:05)
[2020-04-13] VITALS (26 sets, daily range): BP systolic 105–158; BP diastolic 58–104; PULSE 64–96; RESP 11–28; TEMP 36.5–36.6; O2SAT 84–100
[2020-04-13] MEDS: dilTIAZem 30 mg Tablet 60 MG PO ×3 (03:11→15:43)
[2020-04-13] MEDS: potassium chloride ER 10 mEq Tablet 40 MEQ PO (08:12)
[2020-04-13] MEDS: midodrine 5 mg TABLET 2.5 MG PO ×2 (08:14→15:43)
[2020-04-13] MEDS: duloxetine 30 mg Capsule PO (08:14)
[2020-04-13] MEDS: sennosides-docusate Tablet 1 TAB PO (08:15)
[2020-04-13] MEDS: levETIRAcetam 500 mg Tablet PO ×2 (08:15→19:00)
[2020-04-13] MEDS: FUROsemide 20 mg Tablet PO ×2 (08:15→15:42)
[2020-04-13] MEDS: escitalopram 10 mg Tablet PO (08:16)
[2020-04-13] MEDS: metoprolol tartrate 25 mg Tablet 37.5 MG PO ×2 (08:17→19:00)
--- NOTE | 2020-04-13 08:41 | PM.DCS ---
Discharge Providers Date of Admission: 03/30/20 23:17 Date of Discharge: April 13, 2020 Attending Provider at Admission: Kofi Noyola MD Attending Provider at Discharge: Dayanara Joshua MD Consults: Psychiatry, Dr. Pandey Primary Care Provider: Demarcus Gallego Jr, MD Diagnoses at Discharge Discharge Diagnosis (1) Fever: Status: Resolved Problem details: -has been afebrile since 04/06 -CT A/P (03/30): descending colon colitis -CXR (04/06): progressive bilateral opacifications, probably combination of pneumonia and edema. Noted improvement on repeat imaging -influenza and COVID-19 negative -off antibiotics given length of treatment, no fever, no leukocytosis -blood cx: negative, urine cx: negative; with slight leukocytosis and fever, repeat UA negative, blood cx prelim negative -C.difficile and enteric bacterial panel negative -no noted rigidity but with cluster of fever, hemodynamic instability, altered mental status, NMS is a consideration; had previously been noted to have mild CPK elevation, repeat normalized Qualifiers: Fever type: unspecified Qualified Code(s): R50.9 - Fever, unspecified (2) Encephalopathy acute: Status: Resolved Problem details: -likely multifactorial given cluster of symptoms including possible Lewy body dementia, seizure disorder, multisystem atrophy with infection as noted above, delirium -appreciate Psychiatry input; MMSE-17/30. Will likely need to repeat this once sensorium clears some more -fall, aspiration, seizure precautions -Neurology f/u as outpatient -sitter at bedside -off benzodiazepines due to likelihood that this is causing more clouding of her sensorium and worsening her delirium particularly with her age -no Haldol or Precedex required overnight x 48 hrs -Suspect that this is going to be her new baseline (3) Colitis: Status: Resolved (4) Orthostasis: Status: Acute Problem details: -unclear etiology given the cluster of symptoms, differentials include autonomic dysfunction -Florinef had been on hold, due to trend down in BP, will resume low dose midodrine -close monitoring of vital signs; stable -has had recurrent syncopal episodes, pre-syncopal episode here (04/09) -telemetry monitoring -Echo: EF=71%, G1DD, mild LVH, no RWMA, trace MR, trace AR, trace TR -clinically appears compensated, on PO Lasix (5) PÉREZ (acute kidney injury): Status: Resolved Problem details: -renal function normalized -renally dose meds, avoid nephrotoxins (6) Recurrent syncope: Status: Chronic (7) Tachycardia: Status: Chronic Problem details: -had been noted previously with PACs on telemetry -noted to develop atrial fibrillation with RVR during hospital course, received Cardizem bolus and on Amiodarone drip, weaned off. -on BB, oral cardizem -telemetry monitoring -Echo as noted above -anemic so may not be a good candidate for AC -replace lytes, particularly K, Mg as needed -elevated D-dimer, no PE on CTA chest -had Holter monitoring done in 2013 showing baseline sinus rhythm with some bradycardia and tachycardia; no pauses (8) Hypoxia: Status: Acute Problem details: -weaned off high flow NC; avoid BiPAP use due to concern for aspiration -evidence of pneumonia on imaging; suspect some degree of fibrosis and potentially pulmonary hypertension -off antibiotics -continue to monitor respiratory status -supplemental oxygen as needed; not previously oxygen dependent; home oxygen evaluation prior to d/c (9) Pyuria: Status: Resolved Problem details: -UA with noted hematuria/pyuria/trace bacteria. Repeat UA showing trace bacteria -urine cx negative (10) Seizures: Status: Chronic Problem details: -has been following up with Dr. Rebolledo (Neurology) at [facility] -on Keppra -seizure precautions (11) Anxiety: Status: Chronic Problem details: -on cymbalta -off anxiolytics, sedating meds due to risk of prolonging delirium -Haldol PRN Other Information Additional DC diagnoses/information: -Acute macrocytic anemia; previous hemoglobin wnl; Hg stable, continue to monitor closely -Hypomagnesemia; resolved, replace as needed -Elevated CPK-resolved -Dyslipidemia; on statin -Hyperglycemia; A1c-5.7 Reason for Visit Reason for Visit: SYNCOPAL EPISODE Hospital Course Hospital Course: Patient has had a very prolonged hospital course, was admitted to ICU where she has spent the entirety of her hospital stay. Had initially presented with recurrent falls and syncopal episodes which are though not new in onset were occurring more frequently per . She had been following up with a neurologist in [place] just prior to this hospital stay he had been admitted at [facility] for the same complaints. Work-up here initially revealed mild anemia, imaging findings concerning for colitis and urinalysis concerning for infection. She was started on empiric antibiotics, electrolytes replaced as needed as well as IV fluid hydration due to noted acute renal impairment. She has consistently been on telemetry monitoring and seems to have quite labile blood pressures and heart rates which may be indicative of some underlying autonomic dysfunction. She was also noted to have waxing and waning mental status which is likely due at least in some degree to underlying dementia. She has required one-on-one monitoring due to high fall risk and noted encephalopathy. She was initially spiking fever likely due to underlying infection but has been afebrile for over 72 hours. Due to noted encephalopathy psychiatry was consulted and recommended initiation of Lexapro. Patient initially required Precedex drip for significant agitation and combative behavior in addition to Haldol and benzodiazepines. However these were in some part contributing to prolonged delirium and once able to discontinue this medications her mentation has improved. She is more hemodynamically stable following adjustments of her medications particularly antihypertensives, antiarrhythmic agents. She is not a good candidate for anticoagulation due to recurrent falls and underlying anemia. She would likely benefit from cardiology evaluation as an outpatient to further work-up possible underlying arrhythmia. She will also need follow-up with her neurologist for further work-up including truly has seizure disorder versus dementia. Due to issues with orthostasis will continue midodrine but discontinue Florinef. She has noted chronic diastolic CHF so we will continue Lasix as well. She initially had quite a high oxygen requirement alternating between BiPAP and heated high flow, has been weaned down to nasal cannula. She was not previously oxygen dependent so we will need home oxygen evaluation prior to discharge and qualifies for 2 L NC. Disposition has been discussed on multiple occasions with including offering SNF placement. Patient and have opted for discharge home with home health services. Additional information on options for additional caregivers have been provided. Due to patient's overall deconditioning, dementia she will need additional equipment which has been ordered including wheelchair, bedside commode, shower chair for safety. She was noted to have some mild microcytic anemia though hemoglobin has been stable and she has not required transfusion of any blood products. With her multiple underlying comorbidities she is at high risk for readmission. Over the past 24 to 36 hours she has been working better with physical therapy, mentation has been stable. I have discussed with her on multiple occasions need for constant supervision due to continued fall risk and patient's underlying dementia, monitoring of vital signs which can be done by the home health nurse, need for consistent use of supplemental oxygen, bedside commode particularly at night, ambulation with walker and assistance as patient is quite impulsive during ambulation and compliance with medication regimen. She will need close follow-up with her primary care provider. Discharge Summary: -Patient to follow-up with her primary care provider within 1 week -Patient to continue to follow-up with her neurologist Dr. Rebolledo in [place] -Patient to follow-up with cardiology as soon as next available appointment Physical Exam Const: COMMON NORMALS: no acute distress GENERAL APPEARANCE: cooperative, comfortable and frail appearing ORIENTATION/CONSCIOUSNESS: Yes awake and Yes oriented to person OTHER: -Sitting in recliner by bedside HENMT: COMMON NORMALS: normocephalic, atraumatic, hearing grossly normal bilaterally and moist oral mucous membranes HEAD & SCALP: normocephalic and atraumatic OTHER: -Fading left periorbital bruising Eye: COMMON NORMALS: Equal, round and reactive pupils present, EOMs intact bilaterally and conjunctivae normal CONJUNCTIVA: Yes conjunctivae normal PUPIL: Yes Equal, round and reactive pupils present Neck/C-Spine: COMMON NORMALS: full ROM GENERAL: Yes normal visual inspection and Yes trachea midline Resp: COMMON NORMALS: No retractions, No use of accessory muscles and clear to auscultation bilaterally EFFORT & INSPECTION: Yes able to speak in complete sentences, Yes symmetric chest movement and Yes tachypneic AUSCULTATION: clear to auscultation bilaterally and crackles OTHER: -on 1-2 L NC Cardio: COMMON NORMALS: regular rate, regular rhythm, S1 normal heart sound present, S2 normal heart sound present and No murmurs present (Cardio) RATE: regular rate RHYTHM: regular rhythm HEART SOUNDS: S1 normal heart sound present and S2 normal heart sound present OTHER: -normotensive though blood pressure and HR intermittently labile GI: COMMON NORMALS: Normal to inspection, nondistended, normoactive bowel sounds present, Soft to palpation and non-tender PALPATION: Yes Soft to palpation : BLADDER/KIDNEY EXAM: Yes catheter in place Catheter type (Female): urethral Extremity: COMMON NORMALS: normal to inspection, full ROM and no clubbing, cyanosis or edema; negative for no pedal edema Neuro: COMMON NORMALS: moves all extremities, no focal motor deficits and no sensory deficits noted SENSORIUM/ORIENTATION: Yes oriented to person OTHER: -mental status waxes and wanes Psych: COMMON NORMALS: Normal thought process present, cooperative, normal affect (low threshold for anxiety; emotional and tearful) and speech normal SPEECH: Yes normal speech MOOD & AFFECT: Yes Labile affect present THOUGHT PROCESS: Normal thought process present INSIGHT: Limited insight present (Psych) Skin: COMMON NORMALS: no jaundice, no petechiae and no mottling NARRATIVE SKIN EXAM: -fading bruising diffusely Urinary Catheter Management^: Fan Latex Free: Cath Placed During This Visit: yes, but has since been removed by the nurse Reason for Continuing Indwelling Catheter: Decision to DC Catheter Urinary Catheter Date of Insertion: 04/03/20 Urinary Catheter Time of Insertion: 00:00 Date Urinary Catheter Removed: 04/11/20 Time Urinary Catheter Discontinued: 12:15 Discharge Data Data Completed and Pending: Completed Studies During Hospitalization Category Date Time Status CT abdomen pelvis w con* [id number] Stat Cat Scan 03/30/20 19:[address] head wo con* 7 0450 Stat Cat Scan 03/30/20 19:47 Completed CTA chest [CT ang io chest PE protcl [id number]] Stat Cat Scan 03/31/20 04:46 Completed XR chest 1V brittany ble [id number] Routine Exams 04/02/20 12:50 Completed XR chest 1V brittany ble [id number] Routine Exams 04/04/20 09:14 Completed XR chest 1V brittany ble [id number] Routine Exams 04/06/20 06:00 Completed XR chest 1V brittany ble [id number] Routine Exams 04/09/20 06:00 Completed XR chest 1V brittany ble [id number] Stat Exams 03/30/20 19:40 Completed XR chest 1V brittany ble [id number] Stat Exams 04/02/20 22:22 Completed CV echo complete* [id number] Routine Ultrasound 03/31/20 23:45 Completed Vitals: Last Vital Signs Temp 97.8 F 04/13/20 04:00 Pulse 96 04/13/20 07:44 Resp 20 H 04/13/20 07:00 BP 105/58 04/13/20 07:00 Pulse Ox 92 04/13/20 07:44 Discharge Plan Discharge Patient Disposition: Home Health Service Condition: Stable Prescriptions: New levetiracetam 500 mg Tablet 500 mg PO BID 30 Days Qty: 60 RF: 0 sennosides-docusate sodium 8.6-50 mg Tablet 1 tab PO DAILY Qty: 30 RF: 0 potassium chloride 10 mEq Tablet Extended Release 40 meq PO DAILY 30 Days Qty: 120 RF: 0 furosemide 20 mg Tablet 20 mg PO BID@08,16 Qty: 60 RF: 0 metoprolol tartrate 25 mg Tablet 37.5 mg PO BID 30 Days Qty: 90 RF: 0 diltiazem HCl 120 mg capsule,extended release 12 hr 120 mg PO BID 30 Days Qty: 60 RF: 0 Continued sodium chloride 1 gram Tablet 2,000 mg PO DAILY RF: 0 midodrine 2.5 mg tablet 2.5 mg PO TID 30 Days Qty: 90 RF: 0 duloxetine 30 mg capsule,delayed release(DR/EC) 30 mg PO DAILY Qty: 30 RF: 0 Changed simvastatin 20 mg Tablet 40 mg PO BEDTIME Qty: 60 RF: 0 Discontinued Claritin 10 mg Tablet 10 mg PO DAILY RF: 0 chlordiazepoxide HCl 10 mg Capsule 10 mg PO Q6H RF: 0 fludrocortisone 0.1 mg Tablet 0.3 mg PO DAILY RF: 0 Discharge Orders: Discharge Order (Routine); Ordered 04/13/20 Ordered By: Dayanara Joshua Other Ambulatory Orders: DME: Commode (Order) Location: None Selected Ordered By: Dayanara Joshua DME: Oxygen (Order) Location: None Selected Ordered By: Dayanara Joshua DME: Shower Chair (Order) Location: None Selected Ordered By: Dayanara Joshua DME: Wheelchair (Order) Location: None Selected Ordered By: Alfonzo Hameed Referrals: [facility] [place]Outside] [facility] [Outside] (This is your home health company. They will be calling you to set up a time to see you on 04/07/20.) Bertin oMndragon M.D [Physician] - 1 month Demarcus Gallego Jr, MD [Primary Care Provider] - 04/20/20 9:00 am (Post hospital discharge follow up) Discharge Diet: Advance as tolerated and Regular Discharge Activity: Use walker/crutches as instructed, As per PT/OT instructions and Oxygen as instructed Patient Instructions: Diltiazem (By mouth), Furosemide (By mouth), Potassium Chloride (By mouth), Laxative, Stimulant (By mouth), Metoprolol/Hydrochlorothiazide (By mouth), Levetiracetam (By mouth) Discharge Attestations Time Spent in Discharge Care*: greater than 30 min Specific Discharge Activities: Specific discharge activities: educating and/or supporting family/caregiver (), discussing with case planner/social workers/dc planners, documenting/other paperwork and evaluating patient/reviewing data Status at Discharge: Cognitive status at discharge: other (mental status tends to wax and wane), Behavioral status at discharge: dependent in ADL's, Functional status at discharge: uses cane/walker (fall risk) Overall status at discharge: patient has a new baseline Quality Metrics Clinical Quality Measures During this hospital stay, did patient experience: None Coding Level of Care Code Acute Front Desk Administrator for Chg Fwd Exam Comprehensive Diagnoses Fever R50.9 Fever type: unspecified Encephalopathy acute G93.40 Colitis K52.9 Orthostasis I95.1 PÉREZ (acute kidney injury) N17.9 Recurrent syncope R55 Tachycardia R00.0 Hypoxia R09.02 Pyuria R82.81 Seizures R56.9 Anxiety F41.9
--- NOTE | 2020-04-13 10:13 | PC.CHAP ---
Pastoral Care Encounter/Spiritual Assessment Type of Contact [] Declined produce sorter visit [] Patient/Family/Request visit [] Outpatient visit [] Follow-up visit [] Physician referral [] Code/Alert [x] Routine visit [] Staff referral [] Actively dying [] Patient sleeping [] Family support [] [] Out of room [] Palliative care [] [] Receiving care in room [] Pre-surgical visit [] Trauma [] Long length of stay [] ICU visit [] Other: Relational/Emotional Strength [] Patient feels connected with others/family/visitors/staff [] Distress [] Loneliness/isolation [] Abandonment Spirituality of Patient [] Person of Chanel [] Attends Adventist of their Chanel [] Believes in Prayer [] Reads Bible or Taoism materials [] There are Spiritual issues to be addressed Store Manager Interventions [x] Prayer [x] Active listening [x] Non-anxious presence [x] Spiritual/emotional support [] Crisis/trauma care [] Spiritual counseling [] Bereavement support [] Provided bereavement packet [] Provided Bible/devotional materials [] Provided toy/stuffed animal, coloring book to patient or family member [] Provided Communion [] Anointing/[place] [] Salvation [x] Completed spiritual assessment [] Other: Impact on Illness or Injury [] Angry [] Fearful [] Anxious [] Often cries [] Exhaustion [] Unable to work [] Unable to attend gnosticist [] Unable to walk/stand [] Unable to read [] Unable to drive [] Unable to eat/drink [] Unable to sleep [] Unable to be with family [] Patient intubated [] Other: Summary Patient has setter. Patient very confused, tried to comfort her in all ways possible. Time spent with patient 15 min
--- NOTE | 2020-04-13 13:44 | PC.NURSE ---
Behavior Pt has been alert and oriented to place and name this shift. Nurse entered the room and pt was standing next to the PSA attempting to leave room. Pt was stating that she did not know what all of the fuss was about and was trying to leave the unit because she was trying to go home. Pt was redirected and is sitting in the chair.
--- NOTE | 2020-04-13 14:27 | PC.NURSE ---
Report This nurse called [facility] and gave report to staff on patient.
--- NOTE | 2020-04-13 15:55 | PC.OT ---
OT tx attempted at this time. One on one sitter reports pt did not sleep well last night and just recently fell asleep. Nursing requested to let pt sleep. Pt is scheduled to go home with later today. Therapist to check on pt status at later time.
--- NOTE | 2020-04-13 16:49 | PC.NURSE ---
Change in condition This nurse entered patients room to administer medication and patient opened eyes and looked at nurse and then closed eyes and went back to sleep. This nurse returned to room and patient would not respond to verbal command. Sternal rub was done and patient moaned and pulled away and when bilateral nail bed pressure was applied patient pulled away. Bilateral pupils were equal and responsive to light. All vital signs WNL. was notified and stated she would visit patient.
[2020-04-13] MEDS: LORazepam 2 mg/mL INJ 1 mL IVP (19:00)
[2020-04-13] MEDS: haloperidol inj 5 mg/mL INJ 1 mL IM (19:45)
--- NOTE | 2020-04-13 22:00 | PC.NURSE ---
Patient refusing to take 2100 and 0 medications. Patient is refusing to open eyes or swallow water.
[2020-04-14] VITALS (15 sets, daily range): BP systolic 96–188; BP diastolic 49–96; PULSE 64–71; RESP 12–20; TEMP 37.1; O2SAT 93–99
[2020-04-14] MEDS: hyDRALAzine 20 mg/mL INJ 1 mL 10 MG IVP (01:15)
[2020-04-14] MEDS: dilTIAZem 30 mg Tablet 60 MG PO ×2 (03:30→08:18)
[2020-04-14] MEDS: metoprolol tartrate 25 mg Tablet 37.5 MG PO (08:16)
[2020-04-14] MEDS: FUROsemide 20 mg Tablet PO (08:17)
[2020-04-14] MEDS: sennosides-docusate Tablet 1 TAB PO (08:17)
[2020-04-14] MEDS: midodrine 5 mg TABLET 2.5 MG PO (08:17)
[2020-04-14] MEDS: levETIRAcetam 500 mg Tablet PO (08:17)
[2020-04-14] MEDS: duloxetine 30 mg Capsule PO (08:17)
[2020-04-14] MEDS: potassium chloride ER 10 mEq Tablet 40 MEQ PO (08:18)
[2020-04-14] MEDS: escitalopram 10 mg Tablet PO (08:18)
--- NOTE | 2020-04-14 09:46 | PM.MISC ---
Miscellaneous Note Purpose of Documentation: Discharge held yesterday due to need to arrange DME for appropriate disposition as well as patient's agitation and combativeness. Received Ativan and Haldol just after 1900 and did well overnight. Remains hemodynamically stable, afebrile. Resting quietly in bed currently, has been awake this AM, had breakfast, calm and appropriate though confused. DME availability confirmed. Rest of details per discharge summary.
--- NOTE | 2020-04-14 09:50 | PC.SOCIAL ---
IMM Updated Updated pt on Pg 2 IMM. No questions voiced. Provided pt a copy. Signed, dated, & timed copy in chart.
--- NOTE | 2020-04-14 10:53 | PC.NURSE ---
Discharge instructions Patient given discharge instructions (instructions given to , Home, via phone), written/verbal understanding. Called [facility] pharmacy to verify medications, they're ready, patient to orange picker medication prior to arrival (1300). Home health set up per . He is to bring home oxygen in with him.
--- NOTE | 2020-04-14 13:22 | PC.NURSE ---
Discharge Patient dressed and wheeled to private vehicle via wheelchair accompanied by this nurse. and daughter again educated on discharge instructions. Verbal understanding. IV removed earlier. Home oxygen placed on patient, 2lnc. driving. No further questions.
== END 2020-04-14 13:27 | disposition home health service (06) | DRG 391 ==
LOC: ER 22:46 → CSU 23:36 → MEDSURG 03-31 07:06 → ICU 04-02 23:35
PROVIDERS: Emergency Medicine; Internal Medicine; Admitting Provider Internal Medicine; PCP Family Medicine; Visit Provider Family Medicine
DX: K52.9 Noninfective gastroenteritis and colitis, unspecified (principal); J18.9 Pneumonia, unspecified organism; I50.31 Acute diastolic (congestive) heart failure; S22.32XA Fracture of one rib, left side, initial encounter for closed fracture; G93.40 Encephalopathy, unspecified; E87.3 Alkalosis; I47.1 Supraventricular tachycardia; N39.0 Urinary tract infection, site not specified; N17.9 Acute kidney failure, unspecified; I11.0 Hypertensive heart disease with heart failure; I48.91 Unspecified atrial fibrillation; E87.6 Hypokalemia; F41.9 Anxiety disorder, unspecified; D53.9 Nutritional anemia, unspecified; E83.42 Hypomagnesemia; R73.9 Hyperglycemia, unspecified; R56.9 Unspecified convulsions; I95.1 Orthostatic hypotension; G31.83 Neurocognitive disorder with Lewy bodies; F02.80 Dementia in other diseases classified elsewhere, unspecified severity, without behavioral disturbance, psychotic disturbance, mood disturbance, and anxiety; W19.XXXA Unspecified fall, initial encounter; Z91.81 History of falling; Y95 Nosocomial condition
CPT/HCPCS: 12345; 36415; 36416; 36600; 51702; 70450; 71045; 71275; 74177; 80048; 80053; 80202; 81001; 82306; 82550; 82607; 82746; 82803; 82962; 83036; 83605; 83735; 84100; 84443; 84484; 85025; 85378; 85610; 85730; 86850; 86900; 87040; 87086; 87493; 87506; 87635; 87804; 92523; 92526; 92610; 93005; 93010; 93306; 94660; 96372; 96375; 97110; 97116; 97161; 97166; 97530; 97535; 99283; J0282; J0360; J0743; J1170; J1630; J1720; J1885; J1940; J1953; J2060; J2270; J2543; J3370; J3475; J3480; J3490; J7030; J7050; J7060; Q9967

== ENCOUNTER 2020-05-21 17:39 | Emergency (ER) | payer MEDICARE, BC, SELFPAY ==
[2020-05-21 18:07] VITALS: BP 156/101; PULSE 105; RESP 18; TEMP 36.7; O2SAT 95; BMI 23.3
--- NOTE | 2020-05-21 18:07 | XRR_ITS ---
PROCEDURE INFORMATION: Exam: XR Right Wrist Exam date and time: 05/21/2020 6:41 PM Age: 79 years old Clinical indication: Injury or trauma; Fall; Initial encounter; Blunt trauma (contusions or hematomas); Wrist; Right; Injury date: 05/21/20 TECHNIQUE: Imaging protocol: XR Right wrist. Views: 3 or more views. COMPARISON: No relevant prior studies available. FINDINGS: Bones/joints: comminuted intra-articular distal radial fracture with displacement and dorsal angulation. Carpus without fracture. Ulnar styloid process fracture. Soft tissues: Normal. XR/XR wrist RT min 3V* [id number] IMPRESSION: Comminuted mildly displaced intra-articular distal radial fracture
--- NOTE | 2020-05-21 19:00 | ED_ITS ---
HPI - Extremity Problem General: Chief complaint: Extremity Injury, Upper Stated complaint: RIGHT WRIST PAIN AFTER FALL Time Seen by Provider: 05/21/20 18:55 Source: patient Mode of arrival: ambulatory Limitations: no limitations History of Present Illness: HPI Narrative: Patient comes in today with injury to the right wrist. Patient reports tripping in the kitchen and catching self with outstretched arm. Patient reports injuring her right wrist area. Patient has noticeable swelling to the right wrist. Pulses are intact. Normal range of motion of the digits are noted. MD Complaint: extremity pain and extremity swelling Review of Systems General: Reports: 10 or more systems reviewed and unremarkable except in HPI and below Musc: Reports: extremity pain (Right wrist) PFS ED PFSH: Medical History (Updated 05/21/20 @ 19:03 by APRYL Stewart) Anxiety -on cymbalta -off anxiolytics, sedating meds due to risk of prolonging delirium -Haldol PRN Chronic diastolic CHF (congestive heart failure) -Echo: EF=71%, no RWMA, mild LVH, G1DD, trace MR, trace TR, trace AR -clinically compensated following IV and oral diuresis with Lasix, will continue oral Lasix on d/c Depression Hypertension Interstitial lung disease -noted evidence of interstitial fibrosis on imaging -has required supplemental oxygen support due to hypoxia -qualifies for 2 L NC on d/c Orthostasis -unclear etiology given the cluster of symptoms, differentials include autonomic dysfunction -Florinef had been on hold, due to trend down in BP, will resume low dose midodrine -close monitoring of vital signs; stable -has had recurrent syncopal episodes, pre-syncopal episode here (04/09) -telemetry monitoring -Echo: EF=71%, G1DD, mild LVH, no RWMA, trace MR, trace AR, trace TR -clinically appears compensated, on PO Lasix Orthostatic syncope Recurrent syncope Seizures -has been following up with Dr. Rebolledo (Neurology) at [facility] -on [facility] -seizure precautions Vitamin D deficiency Surgical History H/O knee surgery H/O shoulder surgery H/O: hysterectomy S/P appendectomy S/P cholecystectomy Family History (Updated 03/30/20 @ 23:13 by Kofi Noyola MD) Denies family history of Diabetes Hyperlipidemia Hypertension Stroke Social History (Updated 03/30/20 @ 23:13 by Kofi Noyola MD) Smoking and tobacco status: never smoked Alcohol intake: never Household members: spouse Housing: House Physical Exam Const: COMMON NORMALS: no acute distress and patient oriented x3 GENERAL APPEARANCE: cooperative HENMT: COMMON NORMALS: normocephalic and Normal external nose present HEAD & SCALP: normal to inspection and normocephalic NOSE: Normal external nose present Eye: GENERAL EYE: appearance normal, both eyes and all related structures Neck/C-Spine: COMMON NORMALS: full ROM Chest: COMMONS NORMALS: normal inspection of the chest Resp: COMMON NORMALS: normal respiratory effort EFFORT & INSPECTION: Yes able to speak in complete sentences Cardio: COMMON NORMALS: regular rate and regular rhythm RATE: regular rate RHYTHM: regular rhythm GI: COMMON NORMALS: non-tender Back/Pelvis: COMMON NORMALS: thoracic and lumbar spine normal to inspection Extremity: COMMON NORMALS: normal to inspection Neuro: COMMON NORMALS: patient oriented x3 and moves all extremities Psych: COMMON NORMALS: mental status grossly normal and cooperative Skin: COMMON NORMALS: no rashes or lesions noted GENERAL SKIN EXAM: no rashes or lesions noted Course Vital Signs: Vital signs: Vital Signs Temperature 98.1 F 05/21/20 18:07 Pulse Rate 105 H 05/21/20 18:07 Respiratory Rate 18 05/21/20 18:07 Blood Pressure 156/101 05/21/20 18:07 Pulse Oximetry 95 05/21/20 18:07 MDM - Extremity (Nontraumatic) MDM Narrative: Medical decision making narrative: Medical decision statement. Patient comes in today with injury to the right wrist. On exam pulses are intact. Skin is warm and dry. Patient has good range of motion of the digits. Some fork type deformity is noted to the wrist. X-ray noted fracture of the distal radius and ulnar styloid. Minimal angulation is noted. Differential diagnosis includes fracture,, sprain, contusion. Reviewed exam with patient with recommendations for follow-up and treatment. Patient reported understanding of care plan and need for follow-up. Patient was splinted with comfort. Patient was notified case management will contact him regarding orthopedic follow-up. Discharge Plan Discharge Patient Disposition: Home Clinical Impression: Fracture of wrist Qualifiers: Encounter type: initial encounter Fracture type: closed Laterality: right Qualified Code(s): S62.101A - Fracture of unspecified carpal bone, right wrist, initial encounter for closed fracture Condition: Stable Prescriptions: No Action sodium chloride 1 gram Tablet 2,000 mg PO DAILY RF: 0 sennosides-docusate sodium 8.6-50 mg Tablet 1 tab PO DAILY Qty: 30 RF: 0 furosemide 20 mg Tablet 20 mg PO BID@08,16 Qty: 60 RF: 0 simvastatin 20 mg Tablet 40 mg PO BEDTIME Qty: 60 RF: 0 midodrine 2.5 mg tablet 2.5 mg PO TID 30 Days Qty: 90 RF: 0 duloxetine 30 mg capsule,delayed release(DR/EC) 30 mg PO DAILY Qty: 30 RF: 0 Discharge Orders: Discharge Order (Routine); Ordered 05/21/20 Ordered By: Ahmet Fang Referrals: Demarcus Gallego Jr, MD [Primary Care Provider] - Discharge Diet: Usual diet Discharge Activity: Increase activity as tolerated Patient Instructions: Wrist Fracture in Adults (ED) Activity Restrictions/Additional Instructions: Keep splint clean and dry. Sling for comfort. Use acetaminophen for pain. Case management will contact you regarding appointment with orthopedic follow- up. Return to the emergency department for new concerns. Coding Level of Care Code ED Public Health Training Assistant for Hong Lopez Exam Comprehensive
[2020-05-21] MEDS: HYDROcodone-acetaminophen 5-325 mg Tablet 1 TAB PO (19:09)
[2020-05-21 19:51] VITALS: BP 148/109; PULSE 99; RESP 20; O2SAT 99
--- NOTE | 2020-05-22 11:30 | DCPLANNER ---
guest house manager had message to schedule a follow up appointment for patient with ortho. guest house manager called the ortho clinic, spoke with Pat, gave clinic patients information. guest house manager was told that patient has a follow up appointment scheduled for Monday, May 25, 2020 at 2:[address] Zambrano. Clinic will call patient with appointment information.
--- NOTE | 2020-06-01 08:27 | DCPLANNER ---
Patient had a follow up appointment scheduled for 05.25.20 with ortho - patient did attend appointment.
== END 2020-05-21 19:53 | disposition home or self-care (01) ==
PROVIDERS: Emergency Provider Nurse Practitioner Family; PCP Family Medicine
DX: S62.101A Fracture of unspecified carpal bone, right wrist, initial encounter for closed fracture (principal); I10 Essential (primary) hypertension; W18.40XA Slipping, tripping and stumbling without falling, unspecified, initial encounter
CPT/HCPCS: 12345; 29125; 73110; 99281; 99283

== ENCOUNTER → 2020-05-25 14:25 | Outpatient (BNVA) | payer MEDICARE, BC, SELFPAY | PROVIDERS: PCP Family Medicine; Referring Provider Nurse Practitioner Family; Visit Provider Specialist | DX: S62.101A Fracture of unspecified carpal bone, right wrist, initial encounter for closed fracture (principal); Z20.828 Contact with and (suspected) exposure to other viral communicable diseases; X58.XXXA Exposure to other specified factors, initial encounter | CPT/HCPCS: 73110; 87635 ==

== ENCOUNTER 2020-05-26 07:41 | Day surgery (SDC) | payer MEDICARE, BC, SELFPAY ==
[2020-05-25 17:45] VITALS: BMI 23.0
[2020-05-26] VITALS (9 sets, daily range): BP systolic 142–156; BP diastolic 70–100; PULSE 92–111; RESP 14–20; TEMP 36.6–36.8; O2SAT 93–100
--- NOTE | 2020-05-26 | SCC_ITS ---
Procedure Done: Open reduction internal fixation right distal radius displaced fracture utilizing the Padmini short narrow distal radius plate 103.2 seconds of fluoroscopic guidance, for a cumulative dose of 2.85 mGy, was provided to Dr. Zambrano by the radiology department. C-arm images of the RIGHT wrist were saved for the patient's permanent record. [facility]
--- NOTE | 2020-05-26 | XR_ITS ---
WS: [id number] INTRAOPERATIVE TECHNIQUE: 3 Spot fluoroscopic images for intraoperative purposes. FLUOROSCOPY TIME: 103.2 seconds CLINICAL INFORMATION: OR PICS COMPARISON: None. FINDINGS: Plate and screw fixation involving the distal radius. Chronic appearing avulsion of the ulna styloid. XR/XR wrist RT 2V [id number] IMPRESSION: Images obtained for intraoperative purposes.
--- NOTE | 2020-05-26 08:02 | ECG_ITS ---
[facility] Test Date: 2020-05-26 Pat Name: Leatha Malin Department: Room: Gender: Female Blockmason: : 1940 Requested By: Marium Senior Order Number: [id number] Daylin MD: Scarlett Nolen M.D. Measurements Intervals [place] Rate: 98 P: 44 FL: 150 QRS: 35 QRSD: 89 T: -14 QT: 361 QTc: 461 Interpretive Statements SINUS RHYTHM POSSIBLE ANTERIOR MYOCARDIAL INFARCTION [30 ms Q WAVE IN V3/V4, OR R < 0.2 mV IN V4], PROBABLY OLD POSSIBLE INFERIOR MYOCARDIAL INFARCTION [30 ms Q WAVE IN II/aVF], OF INDETERMINATE AGE Compared to ECG 04/08/2020 00:03:00 Myocardial infarct finding now present Atrial fibrillation no longer present Electronically Signed On 05-26-2020 18:29:06 CDT by Sacrlett Nolen M.D. [id number]
--- NOTE | 2020-05-26 08:24 | ANES.PREANE2 ---
Pre-Anesthetic Assessment Pre-Anesthetic Assessment: Height/Weight: Height 1.6 m Weight 58.967 kg Pulse Resp BP Pulse Ox 111 H 18 150/100 93 05/26/20 08:04 05/26/20 08:04 05/26/20 08:04 05/26/20 08:04 Preop Diagnosis: Comminuted right distal radius fracture, displaced Proposed Procedure: Operation Date: 05/26/20 08:45 Proposed Procedures p ORIF Wrist 38372 S52.509A(Right) - Alanna Zambrano MD Familial anesthetic complications: Severe PONV - will perform TIVA Was Beta Keri taken within 24 hours: N/A Last intake: Intake Last Liquid Date 05/25/20 Last Liquid Time 18:00 Last Solid Date 05/25/20 Last Solid Time 18:00 Social: Social History: No alcohol and No tobacco Exam: Pre-Anes Outpt Exam: alert, oriented x 3, clear to auscultation bilaterally and regular rate & rhythm Airway: Cervical ROM: WNL MP: 3 Dentition: Full Pulmonary: Comments: Recently placed on 2 L NC d/t pneumnia CV/HEM: CV/HEM: Afib, CHF and HTN Comments: echo - EF 70%, grade I diastolic dysfunction, mild LVH Orthostatic hypotension/autonomic dysfunction : Comments: recent PÉREZ Neuropsych: Neuropsych: Seizure Anesthetic Plan: ASA status: 3 Anesthesia: General and Regional (specify below) Risk of > 500 ml blood loss (7ml/kg in children): No PFSH Anesthesia PFSH: Medical History (Updated 05/25/20 @ 16:11 by Alanna Zambrano MD) Anxiety -on cymbalta -off anxiolytics, sedating meds due to risk of prolonging delirium -Haldol PRN Chronic diastolic CHF (congestive heart failure) -Echo: EF=71%, no RWMA, mild LVH, G1DD, trace MR, trace TR, trace [place] -clinically compensated following IV and oral diuresis with Lasix, will continue oral Lasix on d/c Depression Hypertension Interstitial lung disease -noted evidence of interstitial fibrosis on imaging -has required supplemental oxygen support due to hypoxia -qualifies for 2 L NC on d/c Orthostasis -unclear etiology given the cluster of symptoms, differentials include autonomic dysfunction -Florinef had been on hold, due to trend down in BP, will resume low dose midodrine -close monitoring of vital signs; stable -has had recurrent syncopal episodes, pre-syncopal episode here (04/09) -telemetry monitoring -Echo: EF=71%, G1DD, mild LVH, no RWMA, trace MR, trace AR, trace TR -clinically appears compensated, on PO Lasix Orthostatic syncope Recurrent syncope Seizures -has been following up with Dr. Rebolledo (Neurology) at [facility] -on [place] -seizure precautions Vitamin D deficiency Surgical History H/O knee surgery H/O shoulder surgery H/O: hysterectomy S/P appendectomy S/P cholecystectomy Family History Denies family history of Diabetes Hyperlipidemia Hypertension Stroke Social History Smoking and tobacco status: never smoked Alcohol intake: never Household members: spouse Housing: House Data Anesthesia CBC & Chem 7: 05/26/20 08:22 05/26/20 08:22 Cardiac Studies: No Data to Display
[2020-05-26] MEDS: sodium chloride 0.9% 1,000 ML 30 ML IV (08:30)
[2020-05-26] MEDS: CELEcoxib 200 mg Capsule 400 MG PO (08:30)
[2020-05-26 08:46] LABS: Basophils # 0.1 10^3/uL (0.0-0.1); Basophils % 0.8 %; Eosinophils # 0.2 10^3/uL (0.0-0.8); Eosinophils % 2.4 %; Hematocrit 39.3 % (37.0-47.0); Hemoglobin 12.9 g/dL (11.5-15.3); Lymphocytes # 1.5 10^3/uL (0.8-4.8); Lymphocytes % 18.8 %; Mean Corpuscular HGB Conc 32.8 g/dL (30.0-36.0); Mean Corpuscular Hemoglobin 30.9 pg (28.0-34.0); Mean Platelet Volume 10.5 fL (7.4-10.4); Monocytes # 0.5 10^3/uL (0.2-0.9); Monocytes % 6.8 %; Neutrophils # 5.68 10^3/uL (1.8-7.7); Neutrophils % 70.9 %; Nucleated Red Blood Cells % 0 %; Platelet Count 212 10^3/cmm (130-400); Red Blood Count 4.18 10^6/uL (4.1-5.3); Red Cell Distribution Width 12.3 % (12.1-15.1)
[2020-05-26 08:59] LABS: Alanine Aminotransferase 9 U/L (0-33); Albumin Level 4.5 g/dL (3.5-5.2); Alkaline Phosphatase 90 IU/L (35-105); Blood Urea Nitrogen 14 mg/dL (8-23); Calcium 9.3 mg/dL (8.5-10.5); Carbon Dioxide 28 mmol/L (22-29); Chloride 98 mmol/L (98-107); Globulin 3.5 g/dL (1.3-4.6); Glucose 117 mg/dL (65-115); Osmolality Calculated 290 mOsm/kg (285-295); Sodium 139 mmol/L (136-145); Total Bilirubin 0.4 mg/dL (0.15-1.2)
[2020-05-26 09:02] LABS: Anion Gap 17.5 (5-19); Aspartate Amino Transferase 18 U/L (0-32); Potassium 4.5 mmol/L (3.5-5.1)
--- NOTE | 2020-05-26 09:19 | ANES.PROC ---
Anesthesia Procedures Procedure/Date: 05/26/20 Nerve Block ^: Nerve Block 1: Main Anesthesia: general anesthesia Time Out Performed: Yes Consent: requested by attending/covering physician, from patient, risks and benefits reviewed and patient agrees to proceed Nerve block location: axillary (R) Anesthesia monitors applied: pulse oximetry, EKG, BP cuff and oxygen Nerve block position: supine Anesthetic Used: ropivicaine 0.5% and with decadron (4 mg) Amount of anesthesia used (mL): 30 Ultrasound used to: recognize landmarks and visualize and ID brachial plexus Nerve Stimulator Used?: No Interscalene/Femoral BLK: 2 stimuplex 22 g needle used for position and inplane approach, visualize local anesthetic spread and no vascular puncture identified Injection: neg aspiration of heme Patient Tolerated Procedure: well Complications: none and pain with procedure (patient experienced localized pain with any redirection of needle and injection, no parasthesias)
--- NOTE | 2020-05-26 09:52 | P.HPUD_ITS ---
Surgery/Procedure H&P Update DATE OF PROCEDURE: May 26, 2020 DATE H&P PERFORMED: 05/25/20 H&P UPDATE INFORMATION: I have reviewed H&P completed within last 30 days, I have examined patient prior to procedure, No changes to prior documentation and H&P is in [facility] EMR on date indicated PREOP DIAGNOSIS: Comminuted right distal radius fracture, displaced PLANNED PROCEDURE: Operation Date: 05/26/20 08:45 Proposed Procedures p ORIF Wrist [id number] S52.509A(Right) - Alanna Zambrano MD Related Problem List Diagnoses (1) Displaced fracture of distal end of right radius:
[2020-05-26] MEDS: ceFAZolin 1,000 mg SDV 1000 MG IRRIGATION (10:36)
--- NOTE | 2020-05-26 11:04 | PM.OP ---
Operative Report Date of procedure: May 26, 2020 Pre-op Diagnosis: Comminuted right distal radius fracture, displaced and comminuted Post-op diagnosis: same Procedure Done: Open reduction internal fixation right distal radius displaced fracture utilizing the Padmini short narrow distal radius plate Specimens removed/disposition: None Pathology: none sent Surgeon: Alanna Zambrano Habitat Conservation Planner: [facility] OR technicians Anesthesia: General (With LMA, ASA 3, and supplemental axillary block) Estimated blood loss (mL): 5 Tourniquet time (min): 32 Tourniquet time: At 250 mmHg IV fluids (mL): 700 Urine output (mL): 0 Urine output: No Fan Complications: None Findings: Displaced, impacted, comminuted distal radius fracture with osteopenia Condition: stable Disposition: PACU (Then home with family) Brief History: This 79-year-old woman presented to my office with complaints of a right distal radius fracture which is comminuted and significantly displaced with impaction. Discussion was undertaken with the patient regarding the position of the fracture, and it was felt that she would benefit from open reduction internal fixation. Therefore, after discussion, this was scheduled for her. Procedure: Patient was brought to the operating theater, and after undergoing adequate general anesthesia per LMA preceded by an axillary block in the preop holding area, the patient's right upper extremity was prepped and draped in usual fashion utilizing DuraPrep. The patient had a tourniquet placed high on the arm prior to prepping and draping. Following prepping and draping, the arm was exsanguinated and the tourniquet was elevated. Total tourniquet time was 32 minutes at 250 mmHg. Prior to commencement of the surgical procedure, a surgical pause was performed. At the time of the surgical pause, we confirmed the site and side of surgery as well as the patient's identity and preoperative surgical markings. We also confirmed availability of equipment and appropriate preoperative IV antibiotics which was Ancef 2 g. Fluoroscopy was also brought into position so that we could visualize the fracture and hardware throughout the surgical procedure. The fracture was evaluated prior to tourniquet placement. Following elevation of the tourniquet as well as the surgical pause, an incision was made along the palmaris longus and continued down onto the volar surface of the radius. Care was taken to avoid injury throughout the surgical procedure to the median nerve as well as to the radial artery. The flexor carpi radialis was retracted medially. We were able to essentially elevate the sheath of the flexor carpi radialis and then I was able to place my finger directly onto the distal radius. For the most part, the patient did her own dissection at the time of her injury. Soft tissues were elevated off the distal radius to allow access to the fracture and also to the volar aspect of the distal radial shaft. Fluoroscopy was used to determine whether or not the reduction was appropriate. We were able to reduce the fracture nearly anatomically, but there was significant comminution. We then evaluated the plate and chose the short narrow anatomic 4 hole plate for the right distal radius. The plate was attached proximally and distally without difficulty. A combination of locking and nonlocking screws were utilized to attach the plate utilizing exclusively locking screws distally. We had excellent fixation and reduction of the fracture. Fluoroscopy was utilized during the procedure. Once the plate was fully attached, we had a near anatomic position to the distal radius and the distal radius was out to length. Being satisfied with position, the area was copiously irrigated. There were no fascial tissues to close, and therefore we closed the subcutaneous tissues with 3-0 interrupted Monocryl. We then placed a subcuticular 4-0 Monocryl suture which was running. This was followed by Exofin, Steri-Strips, and OpSite. A volar splint was wrapped into position over soft roll and this was wrapped in place with an Petar wrap. The tourniquet was released after 32 minutes. There were no complications. There were no specimens. Patient was returned to recovery room in a satisfactory condition. She was subsequently discharged home. She will follow-up with me as scheduled in her discharge instructions. Associated Problem List Diagnoses (1) Displaced fracture of distal end of right radius:
--- NOTE | 2020-05-26 12:40 | ANE.PACU2 ---
Inpatient post-anesthesia follow up: Airway intact: Yes Vital signs: Temperature 97.9 F Pulse Rate 100 Respiratory Rate 18 Blood Pressure 156/90 Pulse Oximetry 93 Oxygen Delivery Me thod Room Air Oxygen Flow Rate 8 Fraction of Inspir ed Oxygen Hydration adequate: Yes Nausea and vomiting: No Pain level: 1 Mental status: Baseline
== END 2020-05-26 12:40 | disposition home or self-care (01) ==
PROVIDERS: PCP Family Medicine; Visit Provider Specialist
PROC: (CPT 25609; principal; 2020-05-26 08:45)
DX: S52.501A Unspecified fracture of the lower end of right radius, initial encounter for closed fracture (principal); W18.30XA Fall on same level, unspecified, initial encounter; Y93.9 Activity, unspecified; Y92.000 Kitchen of unspecified non-institutional (private) residence as the place of occurrence of the external cause; F41.9 Anxiety disorder, unspecified; I11.0 Hypertensive heart disease with heart failure; I50.32 Chronic diastolic (congestive) heart failure; F32.9 Major depressive disorder, single episode, unspecified
CPT/HCPCS: 25609; 12345; 36415; 73100; 76000; 80053; 85025; 93005; 96365; C1713; J0131; J0690; J1100; J2250; J2370; J2405; J2704; J2765; J2795; J3010; J3490; J7030

== ENCOUNTER → 2020-06-10 13:10 | Outpatient (BNVA) | payer MEDICARE, BC, SELFPAY | PROVIDERS: PCP Family Medicine; Visit Provider Specialist | DX: S52.501A Unspecified fracture of the lower end of right radius, initial encounter for closed fracture (principal); Z98.890 Other specified postprocedural states; X58.XXXA Exposure to other specified factors, initial encounter | CPT/HCPCS: 73110 ==

== ENCOUNTER 2020-06-30 08:26 | Outpatient (CLI) | payer MEDICARE, BC, SELFPAY ==
--- NOTE | 2020-06-30 08:55 | ECG_ITS ---
[facility] Test Date: 2020-06-30 Pat Name: Leatha Malin Department: Room: Gender: Female Process Design Chemical Engineer: : 1940 Requested By: Bertin Mondragon Order Number: [id number] Daylin MD: Bertin Mondragon M.D. Interpretive Statements NAME OF STUDY: LEXISCAN SESTAMIBI STRESS TEST INDICATION: [Chest Pressure, ] Procedure: At the baseline, blood pressure was 141/100 mmHg, and heart rate was 102 bpm. The electrocardiogram showed normal sinus rhythm with no significant ST-T wave changes. The Lexiscan was infused over periof of 20 seconds. A total of 0.4 mg of Lexiscan was infused. The stress phase was continued for a total of 5 minutes. Heart rate at the end of stress phase was 110 bpm, with a blood pressure of 134/83 mmHg. The EKG at the peak infusion revealed sinus tachycardia with nonspecific ST-T wave changes. Sestamibi was injected 20 seconds after the Lexiscan infusion. Blood pressure at the end of recovery phase was 125/75 mmHg. Heart rate at end of recovery was 109 bpm. Conclusion: 1. Normal EKG response to Lexiscan infusion. Neck 2. No Lexiscan induced chest pain or cardiac arrhythmia. Patient had shortness of breath with nausea which resolved after administration of Zofran 3. Normal blood pressure and heart rate response. 4. Sestamibi/sestamibi perfusion scan pending, See separate report. Electronically Signed On 07-06-2020 9:41:32 PRINCIPAL WEB DEVELOPER by Bertin Mondragon M.D. [id number]
[2020-06-30 08:56] VITALS: BMI 24.0
--- NOTE | 2020-06-30 08:56 | NMCV_ITS ---
NM juan perf SPECT r/s* [id number] Leatha Malin Age: 79 Gender: F : 1940 Exam Date: 06/30/2020 08:56 Ordering Phys: Bertin Mondragon M.D ([email or web address]) Technologist: CHACE Hewitt Exam Location: [facility] Indications: Chest pain STRESS TEST Please [facility] for [facility] IMAGE PROTOCOL Rest/Stress 1 Lexiscan Day Radiopharmaceutical Dose (mCi) Administration Site Administered by Rest: Tc-99m 10.5 IV CHACE Hewitt Sestamibi Stress:Tc-99m 32.9 IV CHACE Briones Sestamibi Rest: 30-Jun-2020 60 Discovery 630 Stress: 30-Jun-2020 60 Discovery 630 0.4mg Lexiscan. Supine position only as patient was unable to lay prone. SPECT RESULTS Technical Quality: Good Raw Data Analysis: Breast attenuation Image Corrections: No attenuation or motion correction applied Summed Stress Score: 2 Summed Rest Score: 1 Summed Difference Score: 1 PERFUSION FINDINGS There is a small area of decreased tracer intake in the apical lateral and lateral wall. There is partial reversibility noted. FUNCTIONAL RESULTS (calculated via Gated SPECT) Stress Image LV EF (%): 57 Stress EDV (mL):69 TID: 0.8 Stress ESV (mL):30 FUNCTIONAL FINDINGS: There is normal left ventricular systolic function. IMPRESSIONS 1. Small area of partially reversible perfusion defect in apical lateral and lateral wall. This could represent ischemia. Clinical correlation is recommended. 2. Normal LV systolic function with EF 57%. Bertin Mondragon MD (Electronically Signed) Final Date: 30 June 2020 16:38 S
[2020-06-30] MEDS: regadenoson 0.4 Mg/5 ml Syringe IVP (10:54)
[2020-06-30] MEDS: ondansetron 2 mg/ML SDV 2 mL 4 MG IVP (11:02)
[2020-06-30 11:11] VITALS: BP 125/75; PULSE 98
== END 2020-06-30 08:27 | disposition home or self-care (01) ==
LOC: CDL 08:29
PROVIDERS: PCP Family Medicine; Visit Provider Internal Medicine
DX: R07.9 Chest pain, unspecified (principal); R06.02 Shortness of breath; R11.0 Nausea; R00.0 Tachycardia, unspecified
CPT/HCPCS: 78452; 93017; 96374; 96375; A9500; J2405; J2785

== ENCOUNTER 2020-07-03 14:28 | Outpatient (CLI) | payer MEDICARE, BC, SELFPAY ==
[2020-07-03 14:36] LABS: Add Urine Microscopic? NO
[2020-07-03 14:49] LABS: Bilirubin Urine Neg (Negative); Blood Urine Neg (Negative); Glucose Urine UA Norm (Normal); Ketones Urine Negative (Negative); Leukocyte Esterase Urine Negative (Negative); Nitrate Urine Negative (Negative); Protein Urine Neg (Negative); Urine Appearance Clear (CLEAR); Urine Color Yellow (Yellow); Urobilinogen Urine Neg (Negative); pH Urine 7 (5-7)
== END 2020-07-03 14:29 | disposition home or self-care (01) ==
LOC: LAB 14:31
PROVIDERS: PCP Family Medicine; Visit Provider Family Medicine
DX: N39.0 Urinary tract infection, site not specified (principal)
CPT/HCPCS: 81003

== ENCOUNTER → 2020-07-08 13:43 | Outpatient (BNVA) | payer MEDICARE, BC, SELFPAY | PROVIDERS: PCP Family Medicine; Visit Provider Specialist | DX: S52.501A Unspecified fracture of the lower end of right radius, initial encounter for closed fracture (principal); Z98.890 Other specified postprocedural states | CPT/HCPCS: 73110 ==

== ENCOUNTER → 2020-08-20 14:20 | Outpatient (BNVA) | payer MEDICARE, BC, SELFPAY | PROVIDERS: PCP Family Medicine; Visit Provider Internal Medicine | DX: Z01.812 Encounter for preprocedural laboratory examination (principal); Z20.828 Contact with and (suspected) exposure to other viral communicable diseases | CPT/HCPCS: 87635 ==

== ENCOUNTER 2020-08-26 07:12 | Day surgery (SDC) | payer MEDICARE, BC, SELFPAY ==
[2020-08-26] VITALS (14 sets, daily range): BP systolic 143–208; BP diastolic 78–121; PULSE 75–94; RESP 15–20; TEMP 36.3; O2SAT 94–97; BMI 25.1
--- NOTE | 2020-08-26 07:30 | XACV_ITS ---
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 No significant stenosis is noted.. * LAD arises from left main artery. It gives rise to 3 diagonal branches. mLAD to dLAD: Moderate 50% stenosis, AKILAH: 3 flow. * Left circumflex artery arises from left main artery. * There is a proximal * 30 to 40% stenosis. pCIRC: Mild 40% stenosis, AKILAH: 3 flow. It is a tortuous vessel.. * It arises from right coronary cusp. mRCA to dRCA: Mild 40% stenosis, AKILAH: 3 flow. * Coronary angiography shows right dominance. * Right heart cath findings: RA pressure: 4/4 (2) RV pressure: 29/-3, 2 PCW: 11/18(12) PA pressure: 26/9(17) PA sat: 67.7% Ao sat 93.5% Cardiac output by Radha: 4.3 L/min Cardiac index by Radha: 2.5 L/min/m2. Conclusions 1. Moderate coronary artery disease. 2. Normal right and left-sided pressures. Normal cardiac output and cardiac index.. Recommendations * Continue current medical management and risk factor modification. Diagnostic RX Recommendation: medical therapy and/or counseling Pressures Phase:Rest AO : 129 / 77 ( 102 ) @ 3:50:00 AM 151 / 58 ( 83 ) @ 3:55:00 AM RV : 29 / -2 / @ 3:37:00 AM PA : 26 / 9 ( 17 ) @ 3:39:00 AM RA : a wave = v wave = mean = -2 @ 3:37:00 AM a wave = v wave = mean = 2 @ 3:40:00 AM O2 Content Phase:Rest PA : O2 Content O2: 67.7 @ 3:50:00 AM Saturations Phase:Rest AO : 94 @ 3:55:00 AM PA : 68 @ 3:50:00 AM Cardiac Output Phase:Rest Radha : 4 @ 3:50:00 AM Radha Cardiac Index: 2 @ 3:50:00 AM Clinical Evaluation EBL: 5mL-10mL Procedural Details Procedure Consent Obtained. Pre-Procedure Time Out. Identified patient by full name and date of as verbalized by the patient/guarantor. Does the consent match the physician's order: Yes. Accurate & Complete Informed Consent: Yes. Inpatient/Outpatient History & Physical on Chart: Yes. If H&P is completed, is and addenduem needed: N/A; If yes, is the addendum complete: N/A. Visualize and Verify Site with Patient/Guarantor: N/A. Relevant Radiology Images available: Yes. Pre-op teaching completed and patient verbalized understanding. The risks, benefits, and alternatives of sedation and/or procedure were discussed by physician. The patient agrees to continue. Procedure started. Correct patient, site and procedure confirmed by cath team. PERRLA. Strong, equal hand nutrition worker bilaterally. Lungs clear x 5 lobes. IV Site on Arrival: 20 gauge in the right anticubital. IV Site on Arrival: 22 gauge in the left anticubital. IV Fluids: 0.9% NaCl at KVO. 0 mL infused prior to petroleum refinery laborer. Pre Procedural Pulses: bilateral dorsalis pedis was 3+. Pre Procedural Pulses: bilateral posterior tibial was 2+. Pre Procedural Pulses: bilateral radial was 3+. right groin was prepped with chloroprep then draped in the usual sterile fashion. right radial was prepped with chloroprep then draped in the usual sterile fashion. Physician notified. Equipment: 6F - Radial. Cardiac Cath Pack. ACIST Manifold Kit Model BT 2000. Heparinized Saline (2 units/mL), 1000 mL bag. Baseline sample Acquired. HR: 96 BPM. Physician arrived. Pt on roomair for RHC. Physician scrubbed in. Immediate Pre-Procedure Time Out. Correct Patient: Yes; Correct Procedure: Yes; Correct Site: Yes; Correct Patient Position: Yes; Correct Supplies: Yes; Dried Flammable Prep: Yes; Blood Products Available: No;. Lidocaine 1% infiltrated to the right brachial. Venous access obtained. Inventory is 1DayLater Mauricio XT .014 190cm Str. Guidewire. cougar wire inserted. wire out. [place]-Kenrick MON catheter inserted. Oximetry samples were obtained. Normal venous range: 60-85%. Normal arterial range: 95-100%. Pressure measurements obtained. [place]-Kenrick out. Lidocaine 1% infiltrated to the right radial. Arterial access obtained. A 5 tunisian TIG catheter in over wire. Multiple views taken of left coronary artery. Catheter redirected to the RCA. Multiple views taken of right coronary artery. Catheter redirected to the LCA. Catheter out. A TR Band was successful obtaining hemostatsis at the Right Radial artery insertion site. TR band placed. Hemostasis obtained. 6FR sheath exchanged for a 14ga I.V in brachial vein. Post Procedure: Pulses reassessed and unchanged. PERRLA. Strong, equal hand nutrition worker bilaterally. No VTE prophylaxis required. Medication's Wasted: Other = fentanyl 75 mcg. Medication's Wasted: Heparin = 1000 units. Medication's Wasted: Lidocaine 1% = 16 mL. Medication's Wasted: Nitro = 49.8 mg. Total IV fluids: 27.7 mL. Fluoro: 8:20. Contrast type used: Omnipaque 300 mgI/mL, 500 mL bottle. [id number]. Complications: none. Estimated blood loss: 5mL-10mL. Procedure completed. Patient transferred by wheelchair to CPRU. Post-op diagnosis: moderate multivessel CAD. [facility] Clinical Fraility Score: 5: Mildly Frail. Family Dentist Indications: New Onset Angina. Chest Pain Symptom Assessment: Atypical Angina. Vital chart was stopped. Access Site Site: Right Brachial Vein Sheath Size: 6 Fr Hemostasis Success: Unsuccessful Site: Right Radial artery Sheath Size: 6 Fr Hemostasis Method: TR Band Hemostasis Success: Successful Procedure Medications Start: 9:19 AM Stop: 9:19 AM Medication: Aspirin Amount: 325 mg Start: 9:19 AM Stop: 9:19 AM Medication: Versed Amount: 1 mg Route: I.V. Start: 9:20 AM Stop: 9:20 AM Medication: Fentanyl Amount: 25 mcg Route: I.V. Start: 9:21 AM Stop: 9:21 AM Medication: Versed Amount: 1 mg Route: I.V. Start: 9:45 AM Stop: 9:45 AM Medication: Nitrogylcerin Amount: 200 mcg Route: I.A. Start: 9:47 AM Stop: 9:47 AM Medication: Heparin Amount: 5000 units Start: 9:51 AM Stop: 9:51 AM Medication: Versed Amount: 1 mg Route: I.V. I, the attending physician, have reviewed and verified all procedure medications. Yes, all medications given per verbal order History/Risk Factors Hypertension: Yes Tobacco Use: Never Report Signatures Finalized by Bertin Mondragon MD on 09/03/2020 10:11 AM
[2020-08-26] MEDS: diphenhydrAMINE 50 mg Capsule PO (08:17)
[2020-08-26 08:19] LABS: Basophils # 0.1 10^3/uL (0.0-0.1); Basophils % 0.7 %; Eosinophils # 0.2 10^3/uL (0.0-0.8); Eosinophils % 3.2 %; Hemoglobin 12.3 g/dL (11.5-15.3); Lymphocytes # 1.8 10^3/uL (0.8-4.8); Lymphocytes % 26.4 %; Mean Corpuscular HGB Conc 32.4 g/dL (30.0-36.0); Mean Corpuscular Hemoglobin 30.7 pg (28.0-34.0); Mean Corpuscular Volume 94.8 fL (81-99); Mean Platelet Volume 10.1 fL (7.4-10.4); Monocytes # 0.7 10^3/uL (0.2-0.9); Neutrophils # 4.06 10^3/uL (1.8-7.7); Neutrophils % 59.4 %; Nucleated Red Blood Cells % 0 %; Platelet Count 185 10^3/cmm (130-400); Red Blood Count 4.01 10^6/uL (4.1-5.3); Red Cell Distribution Width 12.1 % (12.1-15.1); White Blood Count 6.8 10^3/uL (4.0-10.0)
[2020-08-26 08:30] LABS: INR 1.08 (0.8-1.2)
[2020-08-26 08:44] LABS: Anion Gap 14.1 (5-19); Blood Urea Nitrogen 14 mg/dL (8-23); Calcium 9.3 mg/dL (8.5-10.5); Carbon Dioxide 26 mmol/L (22-29); Chloride 102 mmol/L (98-107); Glucose 99 mg/dL (65-115); Osmolality Calculated 287 mOsm/kg (285-295); Potassium 4.1 mmol/L (3.5-5.1); Sodium 138 mmol/L (136-145)
--- NOTE | 2020-08-26 09:02 | PM.HP ---
Providers/Chief Complaint Primary Care Provider: Demarcus Gallego Jr, MD Chief Complaint: R94.39 Abnormal result of other cardiovascular fun History of Present Illness 80-year-old female with past medical history of orthostatic hypotension, multiple falls, hyperlipidemia, hypertension, diastolic CHF who has been having chest pain episodes. She had presented to the hospital with multiple falls and syncopal episodes. She has been seen by neurology and Duck and according to the her falls are secondary to orthostatic hypotension. She is on Midodrine right now. Patient had been having chest discomfort episodes especially with exertion. He underwent nuclear stress test that showed possible defect in apical and apical lateral flores. Plan is for Right and left heart cath with possible percutaneous coronary intervention. Review of Systems Narrative: CONSTITUTIONAL: No fever chills weight loss or gain or night sweats. [] HEENT: Normocephalic, atraumatic.[] RESPIRATORY: No cough, sputum, hemoptysis or wheezing.[] CARDIOVASCULAR: No shortness of breath, chest pain, PND, orthopnea, lower extremity edema, presyncope or syncope. [] GI: no nausea vomiting diarrhea. [] BURR BENCH HAND: No numbness, tingling, weakness or loss of function in any part of the body. [] MUSCULOSKELETAL: No knee or joint pain or rashes. [] Medications/Allergies Home Medications Medication Instructions Recorded Confirmed Last Taken Type midodrine 5 mg PO TID 05/25/20 08/26/20 08/26/20 06:00 History simvastatin 20 mg PO BEDTIME 05/25/20 08/26/20 08/25/20 20:00 History hydrocodone-acetaminophen [[place]] 1 tab PO Q4H PRN #30 tab 05/26/20 08/25/20 Unknown Rx Allergies Allergy/AdvReac Type Severity Reaction Status Date / Time levofloxacin [From Levaquin] Allergy Unknown Verified 07/08/20 13:36 PFSH Acute PFSH: Medical History (Updated 08/26/20 @ 09:10 by Bertin Mondragon M.D) Anxiety -on cymbalta -off anxiolytics, sedating meds due to risk of prolonging delirium -Haldol PRN Chronic diastolic CHF (congestive heart failure) -Echo: EF=71%, no RWMA, mild LVH, G1DD, trace MR, trace TR, trace TN -clinically compensated following IV and oral diuresis with Lasix, will continue oral Lasix on d/c Depression Hypertension Interstitial lung disease -noted evidence of interstitial fibrosis on imaging -has required supplemental oxygen support due to hypoxia -qualifies for 2 L NC on d/c Orthostasis -unclear etiology given the cluster of symptoms, differentials include autonomic dysfunction -Bereniceinef had been on hold, due to trend down in BP, will resume low dose midodrine -close monitoring of vital signs; stable -has had recurrent syncopal episodes, pre-syncopal episode here (04/09) -telemetry monitoring -Echo: EF=71%, G1DD, mild LVH, no RWMA, trace MR, trace AR, trace TR -clinically appears compensated, on PO Lasix Orthostatic syncope Recurrent syncope Seizures -has been following up with Dr. Rebolledo (Neurology) at [facility] -on [place] -seizure precautions Vitamin D deficiency Surgical History H/O knee surgery H/O shoulder surgery H/O: hysterectomy S/P appendectomy S/P cholecystectomy Family History Denies family history of Diabetes Hyperlipidemia Hypertension Stroke Social History Smoking and tobacco status: never smoked Alcohol intake: never Household members: spouse Housing: House Vitals/I&O/Wt Last Vital Signs Temp 97.4 F L 08/26/20 08:17 Pulse 90 08/26/20 08:17 Resp 18 08/26/20 08:17 BP 208/121 08/26/20 08:17 Pulse Ox 97 08/26/20 08:17 Weight last 48 hrs Weight 142 lb Physical Exam Narrative: EXAM NARRATIVE: GENERAL: Patient is alert, awake and oriented x3. [] NECK: No jugular vein distension. [] HEENT: No cyanosis. No icterus. No pallor. [] HEART: Regular S1 and S2. No murmur, rub or gallop. [] LUNGS: Clear to auscultate bilaterally. [] ABDOMEN: Soft, nontender and nondistended. Positive bowel sounds. No guarding, rebound or tenderness. [] CENTRAL NERVOUS SYSTEM: Grossly nonfocal. [] EXTREMITIES: Lower extremities with no edema bilaterally. Pulses palpable in the lower extremities, both dorsalis pedis and posterior tibial. [] Data : 08/26/20 08:12 08/26/20 08:12 A&P Assessment and plan (1) Chest pain: Status: Acute (2) Abnormal stress test: Status: Acute (3) Hypertension: Status: Acute Qualifiers: Hypertension type: essential hypertension Qualified Code(s): I10 - Essential (primary) hypertension (4) Chronic diastolic CHF (congestive heart failure): Status: Acute Patient has been having chest pain episodes. Her stress test is abnormal. Given her CHF history, we will proceed with right and left heart cath with possible percutaneous coronary intervention. Risks and benefits of the procedure have been described. Risks including bleeding, infection, abnormal kidney function, abnormal heart rhythm, heart attack, stroke or have been described. Patient understands the risk and benefits and wants to proceed with the procedure. Attestations Medical Necessity Statement*: Care not expected to cross 2 midnights. 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
--- NOTE | 2020-08-26 11:01 | PC.NURSE ---
recovery received pt from laborer high density press following diagnostic right and left heart cath. pt alert and oriented x3. tr band in place. complaining of no pain. pt put on patient monitor and vitals obtained. will continue to monitor per protocol.
--- NOTE | 2020-08-26 12:50 | PC.NURSE ---
tr band removal successful band removal. will continue to monitor per protocol.
== END 2020-08-26 13:50 | disposition home or self-care (01) ==
PROVIDERS: PCP Family Medicine; Visit Provider Internal Medicine
DX: I25.10 Atherosclerotic heart disease of native coronary artery without angina pectoris (principal); R94.39 Abnormal result of other cardiovascular function study; R07.89 Other chest pain; I11.0 Hypertensive heart disease with heart failure; I50.32 Chronic diastolic (congestive) heart failure; Z91.81 History of falling; E78.5 Hyperlipidemia, unspecified; F41.9 Anxiety disorder, unspecified; F32.9 Major depressive disorder, single episode, unspecified
CPT/HCPCS: 12345; 36415; 80048; 85025; 85610; 93460; C1751; C1769; C1887; C1894; J1644; J2250; J3010; J3490; J7030; Q0163; Q9967

== ENCOUNTER → 2020-09-02 14:25 | Outpatient (BNVA) | payer MEDICARE, BC, SELFPAY | PROVIDERS: PCP Family Medicine; Visit Provider Nurse Practitioner Family | DX: I25.119 Atherosclerotic heart disease of native coronary artery with unspecified angina pectoris (principal) | CPT/HCPCS: 80048 ==

== ENCOUNTER 2020-10-07 08:57 | Outpatient (CLI) | payer MEDICARE, BC, SELFPAY ==
--- NOTE | 2020-10-07 09:07 | MM_ITS ---
WS: [id number] BILATERAL DIGITAL SCREENING MAMMOGRAPHY WITH CAD CLINICAL INFORMATION: SCREENING HISTORY: Screening mammogram. No current complaints. COMPARISON: TECHNIQUE: Bilateral CC and MLO views. FINDINGS: Scattered fibroglandular densities bilaterally. Increased parenchymal density upper quadrant right br east with some cicatrization. This is progressed compareda to previous. Recommend further evaluation with spot compression views and ultrasound. Left breast is unchanged. Punctate and lucent centered calcifications. Vascular calcification. MM/[place] [id number] IMPRESSION: BI-RADS: 0-Incomplete: Need additional imaging evaluation FOLLOW UP: Need Additional Imaging RECOMMEND RIGHT DIAGNOSTIC MAMMOGRAPHY WITH SPOT COMPRESSION VIEWS AND ULTRASOU ND
== END 2020-10-07 08:58 | disposition home or self-care (01) ==
LOC: RADSHAW 09:02
PROVIDERS: PCP Family Medicine; Visit Provider Family Medicine
DX: Z12.31 Encounter for screening mammogram for malignant neoplasm of breast (principal)
CPT/HCPCS: 77067

== ENCOUNTER 2020-10-27 09:10 | Outpatient (CLI) | payer MEDICARE, BC, SELFPAY ==
--- NOTE | 2020-10-27 09:14 | US_ITS ---
WS: [id number] RIGHT DIGITAL MAMMOGRAPHY WITH CAD CLINICAL INFORMATION: ABNORMAL MAMMOGRAM RT BREAST COMPARISON: October 07, 2020 TECHNIQUE: 6 views of the right breast were obtained. FINDINGS: The right breast is composed of heterogeneous fibroglandular density tissue, which can limit the dete ction of small underlying mass lesions. Again seen is the dense parenchymal tissue upper outer right breast with some cicatrization. This is unchanged. Ultrasound is pending. Punctate calcifications. Vascular calcifications. Stable clustered calcifications. . ULTRASOUND BREAST RIGHT TECHNIQUE: Ultrasound right breast focused area of concern. CLINICAL INFORMATION: ABNORMAL MAMMOGRAM RT BREAST FINDINGS: Comparison October 2019 Ultrasound right breast at the 12:00 position. Dense underlying parenchymal tissue in the area of angélica gical scar. Vascular calcifications. No focal pathologic mass or lesions. No lesions to target for bi opsy. Recommend return to annual screening mammography. US/US breast RT limited* [id number] BI-RADS: 2-Benign FOLLOW UP: 1 Year Follow-up Recommend return to annual screening mammography.
== END 2020-10-27 09:11 | disposition home or self-care (01) ==
LOC: RADSHAW 09:12
PROVIDERS: PCP Family Medicine; Visit Provider Family Medicine
DX: R92.8 Other abnormal and inconclusive findings on diagnostic imaging of breast (principal)
CPT/HCPCS: 76642; 77065

== ENCOUNTER → 2020-11-05 14:08 | Outpatient (BNVA) | payer MEDICARE, BC, SELFPAY | PROVIDERS: PCP Family Medicine; Referring Provider Family Medicine; Visit Provider Nurse Practitioner Family | DX: N39.0 Urinary tract infection, site not specified (principal) | CPT/HCPCS: 81003; 87086 ==

== ENCOUNTER → 2020-12-08 13:03 | Outpatient (BNVA) | payer MEDICARE, BC, SELFPAY | PROVIDERS: PCP Family Medicine; Visit Provider Urology | DX: N39.0 Urinary tract infection, site not specified (principal) | CPT/HCPCS: 81003 ==

== ENCOUNTER → 2021-03-09 15:20 | Outpatient (BNVA) | payer MEDICARE, BC, SELFPAY | PROVIDERS: PCP Family Medicine; Visit Provider Urology | DX: N39.0 Urinary tract infection, site not specified (principal) | CPT/HCPCS: 81003 ==

== ENCOUNTER 2021-04-23 12:48 | Outpatient (CLI) | payer MEDICARE, BC, SELFPAY ==
--- NOTE | 2021-04-23 12:55 | XR_ITS ---
WS: [id number] Humerus LEFT TECHNIQUE: 2 views of the left humerus CLINICAL INFORMATION: INJURY OF L SHOULDER UPPER ARM COMPARISON: None. FINDINGS: Nondisplaced fracture left humeral neck appears new since 2006 and better evaluated on the shoulder i maging. Osteopenia. Advanced degenerative arthritis glenohumeral joint. Distal humerus appears normal . XR/[place] [id number] IMPRESSION: Nondisplaced fracture left humeral neck. Distal humeral shaft appears normal.
--- NOTE | 2021-04-23 12:55 | XR_ITS ---
WS: [id number] ELBOW LEFT TECHNIQUE: 3 views of the left elbow CLINICAL INFORMATION: L UPPER ARM INJURY COMPARISON: None. FINDINGS: Mild soft tissue edema. Osteopenia. Lateral view is rotated. Distal humerus appears normal. Normal ra dial head and neck. Normal olecranon. No acute fractures. XR/XR elbow LT min 3V* [id number] IMPRESSION: Exam is limited due to rotation but no visualized elbow fractures.
--- NOTE | 2021-04-23 12:55 | XR_ITS ---
WS: [id number] SHOULDER LEFT TECHNIQUE: 3 views of the left shoulder CLINICAL INFORMATION: L UPPER ARM L SHOULDER INJURY COMPARISON 2010 FINDINGS: Hypertrophic changes AC joint. Osteopenia. Degenerative arthritis glenohumeral joint with hypertrophi c spurring. Nondisplaced fracture involving the humeral neck is new from 2006. Rotator cuff arthropat hy. XR/XR shoulder LT min 2V* [id number] IMPRESSION: 1. Non displaced fracture involving the humeral neck is new from 2006. 2. Osteopenia.
== END 2021-04-23 12:49 | disposition home or self-care (01) ==
PROVIDERS: PCP Family Medicine; Visit Provider Family Medicine
DX: S42.302A Unspecified fracture of shaft of humerus, left arm, initial encounter for closed fracture (principal); X58.XXXA Exposure to other specified factors, initial encounter; M85.812 Other specified disorders of bone density and structure, left shoulder
CPT/HCPCS: 73030; 73060; 73080

== ENCOUNTER → 2021-04-26 11:31 | Outpatient (BNVA) | payer MEDICARE, BC, SELFPAY | PROVIDERS: PCP Family Medicine; Referring Provider Family Medicine; Visit Provider Specialist | DX: S42.202A Unspecified fracture of upper end of left humerus, initial encounter for closed fracture (principal); X58.XXXA Exposure to other specified factors, initial encounter; Z46.89 Encounter for fitting and adjustment of other specified devices; S42.292D Other displaced fracture of upper end of left humerus, subsequent encounter for fracture with routine healing; X58.XXXD Exposure to other specified factors, subsequent encounter | CPT/HCPCS: 73030; 97760; L3670 ==

== ENCOUNTER 2021-04-26 14:05 | Outpatient (CLI) | payer MEDICARE, BC, SELFPAY | END 2021-04-26 14:06 | disposition home or self-care (01) | LOC: SPT 14:06 | PROVIDERS: PCP Family Medicine; Visit Provider Specialist | DX: Z46.89 Encounter for fitting and adjustment of other specified devices (principal); S42.292D Other displaced fracture of upper end of left humerus, subsequent encounter for fracture with routine healing; X58.XXXD Exposure to other specified factors, subsequent encounter | CPT/HCPCS: 97760; L3670 ==

== ENCOUNTER → 2021-05-12 13:44 | Outpatient (BNVA) | payer MEDICARE, BC, SELFPAY | PROVIDERS: PCP Family Medicine; Visit Provider Specialist | DX: S42.292A Other displaced fracture of upper end of left humerus, initial encounter for closed fracture (principal); S42.202A Unspecified fracture of upper end of left humerus, initial encounter for closed fracture; X58.XXXA Exposure to other specified factors, initial encounter | CPT/HCPCS: 73030; 73080 ==

== ENCOUNTER → 2021-06-09 11:41 | Outpatient (BNVA) | payer MEDICARE, BC, SELFPAY | PROVIDERS: PCP Family Medicine; Visit Provider Specialist | DX: S42.202A Unspecified fracture of upper end of left humerus, initial encounter for closed fracture (principal); S42.292A Other displaced fracture of upper end of left humerus, initial encounter for closed fracture; R52 Pain, unspecified | CPT/HCPCS: 73030 ==

== ENCOUNTER → 2021-06-30 14:10 | Outpatient (BNVA) | payer MEDICARE, BC, SELFPAY | PROVIDERS: PCP Family Medicine; Visit Provider Urology | DX: N39.0 Urinary tract infection, site not specified (principal) | CPT/HCPCS: 81003 ==

== ENCOUNTER → 2021-10-05 14:15 | Outpatient (BNVA) | payer MEDICARE, BC, SELFPAY | PROVIDERS: PCP Family Medicine; Visit Provider Urology | DX: N39.0 Urinary tract infection, site not specified (principal) | CPT/HCPCS: 81003 ==

== ENCOUNTER 2021-11-22 13:31 | Outpatient (CLI) | payer MEDICARE, BC, SELFPAY ==
--- NOTE | 2021-11-22 13:36 | MM_ITS ---
WS: [id number] SCREENING 3D TOMOSYNTHESIS DIGITAL MAMMOGRAM WITH CAD HISTORY: SCREENING COMPARISON: 10/07/2020, 04/19/2019, 05/30/2018 Bilateral CC and MLO views submitted. Computer aided detection analyzed. Breast composition: There are scattered areas of fibroglandular density. There is a continued area of increasing asymmetry and mild architectural distortion upper outer quadrant of the RIGHT breast. Thi s is at a middle depth and previously described. These changes are not significantly changed since 10/07/2020 but progressing since 2019. There are additional extensive round calcifications and vascular c alcifications within each breast. MM/[place] [id number] IMPRESSION: BI-RADS: 0-Incomplete: Need additional imaging evaluation FOLLOW UP: Need Additional Imaging RIGHT breast: Spot compression views (CC and MLO). True ML. Ultrasound to follo w if abnormality persists. This same area was reevaluated in 2020 with additional imaging. This area danni nues to cause some concern due to its distortion and asymmetry which has progre ssed over the last several years. Suggest reevaluation by mammography and ultra sound. If this area persists surgical removal may be necessary. No history of s urgery to this area or trauma was provided to explain these findings.
== END 2021-11-22 13:32 | disposition home or self-care (01) ==
LOC: RADSHAW 13:35
PROVIDERS: PCP Family Medicine; Visit Provider Family Medicine
DX: Z12.31 Encounter for screening mammogram for malignant neoplasm of breast (principal)
CPT/HCPCS: 77063; 77067

== ENCOUNTER 2021-11-24 08:55 | Outpatient (CLI) | payer MEDICARE, BC, SELFPAY ==
--- NOTE | 2021-11-24 09:36 | MM_ITS ---
WS: [id number] ADDITIONAL VIEWS RIGHT MAMMOGRAM with tomosynthesis. RIGHT BREAST ULTRASOUND HISTORY: RT BREAST LUMP COMPARISON: 11/22/2021, 20 10/27/2020, 10/07/2020, 04/19/2019 RIGHT MAMMOGRAM: Spot compression views and true ML. The changes in asymmetry in the RIGHT breast near 12:00 persists with additional views. There are dys trophic calcifications and breast distortion. This is area of surgery approximately 2 years ago. Ther e is no discrete mass. After additional imaging these findings are probably all related to the surger y. There is slight volume loss in the breast at the site of distortion. RIGHT BREAST ULTRASOUND 2-D and color Doppler imaging submitted. Ultrasound is directed in the RIGHT breast towards the upper outer quadrant and 12:00. There is an ar ea of shadowing and heterogeneity and a few cystic areas. These findings correspond to the mammograph ic abnormality are probably postoperative. There is no well formed mass or shadowing from the mass. MM/[place] [id number] IMPRESSION: BI-RADS: 2-Benign FOLLOW UP: 1 Year Follow-up Change in soft tissue distortion seen on the recent mammogram is probably all s econdary to surgery. No discrete underlying mass can be identified. On the ultr asound there are a few benign-appearing cystic areas. At this time return to an nual screening mammography. I did discuss these findings with the patient.
== END 2021-11-24 08:56 | disposition home or self-care (01) ==
PROVIDERS: PCP Family Medicine; Visit Provider Family Medicine
DX: N63.11 Unspecified lump in the right breast, upper outer quadrant (principal); N63.15 Unspecified lump in the right breast, overlapping quadrants
CPT/HCPCS: 76642; 77061

== ENCOUNTER → 2021-12-06 15:10 | Outpatient (BNVA) | payer MEDICARE, BC, SELFPAY | PROVIDERS: PCP Family Medicine; Visit Provider Internal Medicine Cardiovascular Disease | DX: I48.0 Paroxysmal atrial fibrillation (principal); I25.119 Atherosclerotic heart disease of native coronary artery with unspecified angina pectoris; I50.32 Chronic diastolic (congestive) heart failure | CPT/HCPCS: 99213 ==

== ENCOUNTER 2021-12-10 12:49 | Outpatient (CLI) | payer MEDICARE, BC, SELFPAY ==
--- NOTE | 2021-12-10 12:56 | XR_ITS ---
WS: [id number] DEXA (DUAL ENERGY X-RAY ABSORPTIOMETRY) Bone mineral density was performed using a [employer] machine. HISTORY: POSTMENOPAUSAL COMPARISON: 03/19/2018 Lumbar spine BMD (L1-L4): 1.225 g/cm2 T score: 0.4 Z score: 2.2 Total hip BMD: Left: 0.756 g/cm2. T score: -2.0 Z score: 0.0 Right: 0.756 g/cm2. T score: -2.0 Z score: 0.0 10 year probability of a major osteoporotic fracture is 38%. Compared to the prior study from 03/19/2018. Lumbar spine bone mineral density has increased by 0.5%. Bilateral hips bone mineral density has decreased by 9.8%. XR/XR DEXA axial skeleton* [id number] IMPRESSION: OSTEOPENIA based upon the WHO classification for females. Significant decrease in bone mineral density within the hips since the prior st y. No significant change in the lumbar spine.
== END 2021-12-10 12:50 | disposition home or self-care (01) ==
LOC: RAD 12:51
PROVIDERS: PCP Family Medicine; Visit Provider Family Medicine
DX: Z78.0 Asymptomatic menopausal state (principal); M85.80 Other specified disorders of bone density and structure, unspecified site
CPT/HCPCS: 77080

== ENCOUNTER → 2021-12-24 11:51 | Day surgery (SDC) | payer MEDICARE, BC, SELFPAY ==
[2021-12-24 12:02] VITALS: BP 168/118; PULSE 82; RESP 18; TEMP 36.4; O2SAT 99; BMI 24.7
[2021-12-24 12:25] LABS: Calcium 9.6 mg/dL (8.5-10.5)
[2021-12-24] MEDS: denosumab 60 mg SDV SUBCUT (12:33)
== END ==
PROVIDERS: PCP Family Medicine; Visit Provider Family Medicine
DX: M81.0 Age-related osteoporosis without current pathological fracture (principal)
CPT/HCPCS: 36415; 82310; 96372; J0897; J2704

== ENCOUNTER → 2022-03-02 07:54 | Outpatient (BNVA) | payer MEDICARE, BC, SELFPAY | PROVIDERS: PCP Family Medicine; Visit Provider Otolaryngology | DX: G89.29 Other chronic pain (principal); M26.623 Arthralgia of bilateral temporomandibular joint; G44.209 Tension-type headache, unspecified, not intractable; J34.2 Deviated nasal septum | CPT/HCPCS: 99204 ==

== ENCOUNTER → 2022-03-30 10:43 | Outpatient (BNVA) | payer MEDICARE, BC, SELFPAY | PROVIDERS: PCP Family Medicine; Visit Provider Otolaryngology | DX: G89.29 Other chronic pain (principal); G44.209 Tension-type headache, unspecified, not intractable; J34.2 Deviated nasal septum; M26.629 Arthralgia of temporomandibular joint, unspecified side | CPT/HCPCS: 99213 ==

== ENCOUNTER → 2022-04-07 10:35 | Outpatient (BNVA) | payer MEDICARE, BC, SELFPAY | PROVIDERS: PCP Family Medicine; Visit Provider Urology | DX: N39.0 Urinary tract infection, site not specified (principal) | CPT/HCPCS: 81003; 99213 ==

== ENCOUNTER 2022-04-18 08:49 | Outpatient (CLI) | payer MEDICARE, BC, SELFPAY ==
--- NOTE | 2022-04-18 08:30 | CT_ITS ---
WS: [id number] CT SINUSES TECHNIQUE: Noncontrast CT of the paranasal sinuses with coronal and sagittal reformatted images. CLINICAL INFORMATION: chronic facial pain COMPARISON: None. DLP: 359.[address] scans at [facility] use at least one of these dose optimization techniques: automated e xposure control; mA and/or kV adjustment per patient size (includes targeted exams where dose is matc hed to clinical indication); or iterative reconstruction. FINDINGS: Paranasal sinuses are well aerated. Mild mucosal thickening ethmoid air cells. Frontal sinuses are we ll aerated. Normal sphenoid sinuses. Mastoid air cells well aerated. Normal posterior nasopharynx. Mi ld nasal septal deviation convex RIGHT measuring 3 mm. Cavernous carotid calcification. Mild narrowin g of the ostiomeatal units bilaterally which remain patent. Small bilateral Mike cells. Mild polypo id mucosal thickening involving the nasal turbinates. CT/CT sinus wo con* [id number] IMPRESSION: 1. Mild LEFT to RIGHT nasal septal deviation measuring 3 mm 2. Paranasal sinuses are well aerated. Mild mucosal thickening ethmoid air shawnee ls. 3. Mild mucosal thickening ostiomeatal units which remain patent. 4. Mastoid air cells well aerated.
== END 2022-04-18 08:50 | disposition home or self-care (01) ==
LOC: RAD 08:51
PROVIDERS: PCP Family Medicine; Visit Provider Otolaryngology
DX: R51.9 Headache, unspecified (principal); G89.29 Other chronic pain; J34.2 Deviated nasal septum
CPT/HCPCS: 70486

== ENCOUNTER → 2022-04-25 13:24 | Outpatient (BNVA) | payer MEDICARE, BC, SELFPAY | PROVIDERS: PCP Family Medicine; Visit Provider Otolaryngology | DX: G89.29 Other chronic pain (principal); G44.209 Tension-type headache, unspecified, not intractable; J34.2 Deviated nasal septum; M26.629 Arthralgia of temporomandibular joint, unspecified side; I10 Essential (primary) hypertension | CPT/HCPCS: 99213 ==

== ENCOUNTER → 2022-05-16 12:02 | Outpatient (BNVA) | payer MEDICARE, BC, SELFPAY | PROVIDERS: PCP Family Medicine; Visit Provider Internal Medicine Cardiovascular Disease | DX: I11.0 Hypertensive heart disease with heart failure (principal); I50.32 Chronic diastolic (congestive) heart failure; I48.0 Paroxysmal atrial fibrillation; I95.1 Orthostatic hypotension; I25.119 Atherosclerotic heart disease of native coronary artery with unspecified angina pectoris | CPT/HCPCS: 99213; 99214 ==

== ENCOUNTER → 2022-06-15 08:36 | Outpatient (BNVA) | payer MEDICARE, BC, SELFPAY | PROVIDERS: PCP Family Medicine; Referring Provider Otolaryngology; Visit Provider Specialist | DX: I95.1 Orthostatic hypotension (principal); G44.40 Drug-induced headache, not elsewhere classified, not intractable; T50.995A Adverse effect of other drugs, medicaments and biological substances, initial encounter | CPT/HCPCS: 99204; 99205 ==

== ENCOUNTER → 2022-06-24 11:34 | Day surgery (SDC) | payer MEDICARE, BC, SELFPAY ==
[2022-06-24 12:06] VITALS: BP 216/140; PULSE 109; RESP 18; TEMP 36.6; O2SAT 92
[2022-06-24 12:26] LABS: Calcium 10.6 mg/dL (8.5-10.5)
[2022-06-24] MEDS: denosumab 60 mg SDV SUBCUT (12:34)
== END ==
PROVIDERS: PCP Family Medicine; Visit Provider Family Medicine
DX: M81.0 Age-related osteoporosis without current pathological fracture (principal)
CPT/HCPCS: 36415; 82310; 96372; J0897

== ENCOUNTER → 2022-06-30 10:34 | Outpatient (BNVA) | payer MEDICARE, BC, SELFPAY | PROVIDERS: PCP Family Medicine; Visit Provider Internal Medicine Cardiovascular Disease | DX: I95.1 Orthostatic hypotension (principal); R07.9 Chest pain, unspecified; I25.10 Atherosclerotic heart disease of native coronary artery without angina pectoris; R51.9 Headache, unspecified; G89.29 Other chronic pain; I48.0 Paroxysmal atrial fibrillation; I25.119 Atherosclerotic heart disease of native coronary artery with unspecified angina pectoris; I11.0 Hypertensive heart disease with heart failure; I50.32 Chronic diastolic (congestive) heart failure | CPT/HCPCS: 93225; 99214 ==

== ENCOUNTER 2022-08-16 09:47 | Outpatient (CLI) | payer MEDICARE, BC, SELFPAY ==
--- NOTE | 2022-08-16 | ECG_ITS ---
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 Interpretive Statements NAME OF STUDY: LEXISCAN SESTAMIBI STRESS TEST INDICATION: Chest Pain, shortness of breath PROCEDURE: At the baseline, the blood pressure was 211/106 mmHg, oxygen saturation 96% with a heart rate of of 89 bpm. The electrocardiogram showed sinus rhythm, normal axis. Possible old inferior myocardial infarction. Nonspecific ST-T wave changes. The Lexiscan was infused over a period of 20 seconds. A total of 0.4 milligrams of Lexiscan was infused. The stress phase was continued for a total of 5 minutes. Heart rate at the end of the stress phase was 99 bpm, oxygen saturation 97% with a blood pressure of 170/104 mmHg. The EKG at the peak infusion revealed sinus rhythm with no significant ST-T wave changes. The study was terminated due to protocol completion. Sestamibi was injected 20 seconds after the Lexiscan infusion. Blood pressure at the end of the recovery phase was 175/108 mmHg, oxygen saturation 95% with a heart rate of 100 beats per minute. CONCLUSION: 1. No significant EKG changes with the LexiScan infusion. 2. No LexiScan induced chest pain or cardiac arrhythmia. 3. Normal blood pressure and heart rate response. 4. Sestamibi/sestamibi perfusion scan pending; see separate report. Electronically Signed On 08-16-2022 15:38:39 REGIONAL MERCHANDISING MANAGER by Estee Champagne M.D. [id number]
[2022-08-16 10:02] VITALS: BMI 24.2
--- NOTE | 2022-08-16 10:28 | NMCV_ITS ---
NM juan perf SPECT r/s* [id number] Leatha Malin Age: 81 Gender: F : 1940 Exam Date: 08/16/2022 11:12 Ordering Phys: Maxwell Bass MD ([email or web address]) Technologist: CHACE Briones Exam Location: [facility] Indications: ATHEROSCLEROTIC HEART DISEASE OF [place] CORONARY ARTERY STRESS TEST [facility] for [facility] IMAGE PROTOCOL Rest/Stress 1 Lexiscan Day Radiopharmaceutical Dose (mCi) Administration Site Administered by Rest: Tc-99m 10.3 IV CHACE Hewitt Sestamibi Stress:Tc-99m 32.4 IV CHACE Briones Sestamidonna Rest: 16-Aug-2022 60 Discovery 630 Stress: 16-Aug-2022 30 Discovery 630 0.4mg Lexiscan. Supine position only as patient was unable to lay prone. SPECT RESULTS Technical Quality: Excellent Raw Data Analysis: Image Corrections: No attenuation or motion correction applied Summed Stress Score: 4 Summed Rest Score: 6 Summed Difference Score: 0 PERFUSION FINDINGS Small size perfusion abnormality of mild severity of mid inferolateral, apical lateral, apical inferior and apical flores on rest and stress images. FUNCTIONAL RESULTS (calculated via Gated SPECT) Stress Image LV EF (%): 64 Stress EDV (mL):58 TID: 1.03 Stress ESV (mL):21 FUNCTIONAL FINDINGS: The left ventricle is normal in size. Transient Ischemia Dilatation of 1. The left ventricular ejection fraction is normal with a value of 64%. There is normal left ventricular wall thickening. Normal end-diastolic and end-systolic volumes. IMPRESSIONS 1. Small size perfusion abnormality of mild severity of mid inferolateral, apical lateral, apical inferior and apical flores. 2. This may represent old myocardial infarction in circumflex artery territory or attenuation artifact. 3. Overall left ventricular systolic function is normal without regional wall motion abnormalities, LVEF=64%. 4. No coronary ischemia based on the study. 5. EKG portion of the study will be reported separately. Estee Champagne MD (Electronically Signed) Final Date: 16 August 2022 15:35 S
[2022-08-16] MEDS: regadenoson 0.4 Mg/5 ml Syringe IVP (11:40)
[2022-08-16 12:01] VITALS: BP 175/108; PULSE 99
== END 2022-08-16 09:48 | disposition home or self-care (01) ==
LOC: CDL 09:49
PROVIDERS: PCP Family Medicine; Visit Provider Internal Medicine Cardiovascular Disease
DX: I25.10 Atherosclerotic heart disease of native coronary artery without angina pectoris (principal)
CPT/HCPCS: 36415; 78452; 93017; 96374; A9500; J2785

== ENCOUNTER → 2022-08-23 08:24 | Outpatient (BNVA) | payer MEDICARE, BC, SELFPAY | PROVIDERS: PCP Family Medicine; Referring Provider Specialist; Visit Provider Specialist | DX: G90.9 Disorder of the autonomic nervous system, unspecified (principal) | CPT/HCPCS: 99213 ==

== ENCOUNTER → 2022-11-10 15:47 | Outpatient (BNVA) | payer MEDICARE, SELFPAY | PROVIDERS: PCP Family Medicine; Visit Provider Urology | DX: N39.0 Urinary tract infection, site not specified (principal) | CPT/HCPCS: 81003; 99213 ==

== ENCOUNTER 2022-12-16 14:54 | Outpatient (CLI) | payer MEDICARE, SELFPAY ==
--- NOTE | 2022-12-16 15:19 | MM_ITS ---
WS: [id number] BILATERAL 3D TOMOSYNTHESIS DIGITAL SCREENING MAMMOGRAPHY WITH CAD CLINICAL INFORMATION: SCREEN HISTORY: Screening mammogram. No current complaints. COMPARISON: 2021 TECHNIQUE: Bilateral CC and MLO views. FINDINGS: Scattered fibroglandular densities bilaterally. No suspicious focal mass, asymmetry, calcifications, or architectural distortion. No evidence of malignancy. Vascular calcification. Punctate and lucent c entered calcifications. Stable parenchymal scarring and architectural distortion 12:00 position RIGHT breast is unchanged in appearance. History of prior surgery in this area. MM/[id number] IMPRESSION: BI-RADS: 2-Benign FOLLOW UP: 1 Year Follow-up Recommend return to annual screening mammography.
== END 2022-12-16 14:55 | disposition home or self-care (01) ==
LOC: RAD 14:58
PROVIDERS: PCP Family Medicine; Visit Provider Family Medicine
DX: Z12.31 Encounter for screening mammogram for malignant neoplasm of breast (principal)
CPT/HCPCS: 77063; 77067

== ENCOUNTER → 2022-12-20 14:56 | Outpatient (BNVA) | payer MEDICARE, SELFPAY | PROVIDERS: PCP Family Medicine; Visit Provider Internal Medicine | DX: I11.0 Hypertensive heart disease with heart failure (principal); I50.32 Chronic diastolic (congestive) heart failure; I48.0 Paroxysmal atrial fibrillation; I95.1 Orthostatic hypotension; I25.119 Atherosclerotic heart disease of native coronary artery with unspecified angina pectoris | CPT/HCPCS: 99214 ==

== ENCOUNTER → 2022-12-23 11:37 | Day surgery (SDC) | payer MEDICARE, SELFPAY ==
[2022-12-23 12:01] VITALS: BP 153/92; PULSE 74; RESP 18; TEMP 37.3; O2SAT 96; BMI 25.7
[2022-12-23 12:31] LABS: Calcium 9.2 mg/dL (8.5-10.5)
[2022-12-23] MEDS: denosumab 60 mg SDV SUBCUT (12:39)
== END ==
PROVIDERS: PCP Family Medicine; Visit Provider Family Medicine
DX: M81.0 Age-related osteoporosis without current pathological fracture (principal); Z79.899 Other long term (current) drug therapy
CPT/HCPCS: 36415; 82310; 96372; J0897

== ENCOUNTER → 2023-05-10 14:06 | Outpatient (BNVA) | payer MEDICARE, SELFPAY | PROVIDERS: PCP Family Medicine; Visit Provider Dermatology | DX: L57.0 Actinic keratosis (principal); D48.5 Neoplasm of uncertain behavior of skin; L82.1 Other seborrheic keratosis; L81.4 Other melanin hyperpigmentation; Z85.828 Personal history of other malignant neoplasm of skin | CPT/HCPCS: 11102; 17000; 17003; 99213 ==

== ENCOUNTER → 2023-06-20 15:25 | Outpatient (BNVA) | payer MEDICARE, SELFPAY | PROVIDERS: PCP Family Medicine; Visit Provider Internal Medicine | DX: I11.0 Hypertensive heart disease with heart failure (principal); I50.32 Chronic diastolic (congestive) heart failure; R51.9 Headache, unspecified; G89.29 Other chronic pain; I48.0 Paroxysmal atrial fibrillation; I95.1 Orthostatic hypotension; I25.119 Atherosclerotic heart disease of native coronary artery with unspecified angina pectoris | CPT/HCPCS: 99213 ==

== ENCOUNTER 2024-04-17 14:41 | Outpatient (CLI) | payer MEDICARE, SELFPAY ==
--- NOTE | 2024-04-17 14:51 | MM_ITS ---
WS: [id number] BILATERAL 3D TOMOSYNTHESIS DIGITAL SCREENING MAMMOGRAPHY WITH CAD CLINICAL INFORMATION: SCREENING HISTORY: Screening mammogram. No current complaints. COMPARISON: 2022 TECHNIQUE: Bilateral CC and MLO views. FINDINGS: Scattered fibroglandular densities bilaterally. No suspicious focal mass, asymmetry, calcifications, or architectural distortion. No evidence of malignancy. Vascular calcifications. Diffuse scattered pu nctate and lucent centered calcifications similar to previous. Dense nodular parenchymal scarring upp er RIGHT breast is similar to 2023. Stable cluster calcifications RIGHT breast. MM/[id number] IMPRESSION: BI-RADS: 2-Benign FOLLOW UP: 1 Year Follow-up Recommend return to annual screening mammography.
--- NOTE | 2024-04-17 14:51 | XR_ITS ---
WS: [id number] SCREENING DEXA SCAN [employer] CLINICAL INFORMATION: POSTMENOPAUSAL/OSTEOPOROSIS COMPARISON: 2021 FINDINGS: Lumbar scoliosis. The L1-L4 bone mineral density measures 1.305 g/cm2. This corresponds to a T score score of 1.0 and Z score of 2.8. Left femoral neck bone mineral density measures 0.762 g/cm2. This corresponds to a T score of -1.9 an d Z score of 0.1. Right femoral neck bone mineral density measures 0.757 g/cm2. This corresponds to a T score -2.0of an d Z score of 0.0. Mean femoral neck bone mineral density measures 0.759 g/cm2. This corresponds to a T score of -2.0 an d Z score of 0.1. XR/XR DEXA axial skeleton* [id number] IMPRESSION: Normal bone mineralization lumbar spine. Osteopenia femoral necks. Patient's FRAX calculated 10 year probability for major osteoporotic fracture i s 39.5% and osteoporotic hip fracture is 25.5%. Bone mineral density lumbar spine increased 6.5% Bone mineral density femoral necks increased 0.4%
== END 2024-04-17 14:42 | disposition home or self-care (01) ==
PROVIDERS: PCP Family Medicine; Visit Provider Family Medicine
DX: Z12.31 Encounter for screening mammogram for malignant neoplasm of breast (principal); Z13.820 Encounter for screening for osteoporosis; Z78.0 Asymptomatic menopausal state; R92.323 Mammographic fibroglandular density, bilateral breasts; R92.1 Mammographic calcification found on diagnostic imaging of breast; M85.859 Other specified disorders of bone density and structure, unspecified thigh
CPT/HCPCS: 77063; 77067; 77080

== ENCOUNTER 2024-05-13 15:23 | Oncology outpatient (recurring) (ONCR) | payer MEDICARE, SELFPAY ==
[2024-05-13] MEDS: denosumab 60 mg SDV SUBCUT (15:40)
[2024-05-13 15:42] VITALS: BP 173/109; PULSE 80; RESP 15; TEMP 37.3; O2SAT 97
[2024-05-13 16:07] LABS: Calcium 9.5 mg/dL (8.5-10.5)
== END 2024-06-03 23:59 | disposition home or self-care (01) ==
PROVIDERS: PCP Family Medicine; Visit Provider Family Medicine
DX: M81.0 Age-related osteoporosis without current pathological fracture (principal); Z79.899 Other long term (current) drug therapy
CPT/HCPCS: 36415; 82310; 96372; J0897

== ENCOUNTER 2024-06-28 09:44 | Emergency (ER) | payer MEDICARE, SELFPAY ==
--- NOTE | 2024-06-28 09:50 | XR_ITS ---
WS: [id number] Exam: XR chest 1V portable [id number] Date/Time of Exam: 06/28/2024 9:50 AM Reason For Exam: sob Comparison 04/09/2020. The lungs are fully expanded. No consolidating infiltrates. Chronic interstitial changes. Heart size top limits normal. No pleural effusion. Bony structures are intact. Moderate DJD of both shoulders. XR/XR chest 1V portable [id number] IMPRESSION: 1. Chronic changes, no acute process.
[2024-06-28 09:52] VITALS: BP 202/99; PULSE 86; RESP 19; TEMP 36.4; O2SAT 93; BMI 26.6
[2024-06-28 09:56] VITALS: BP 187/109; PULSE 86; RESP 19; O2SAT 94
--- NOTE | 2024-06-28 09:58 | ED_ITS ---
HPI - SOB/Dyspnea 2 General: Chief Complaint: Shortness of Breath/Dyspnea Stated Complaint: SOB, oxygen level low Time Seen by Provider: 06/28/24 09:49 Source: patient Mode of arrival: ambulatory Limitations: no limitations History of Present Illness: HPI Narrative: 83-year-old female states for last 3 day s she has had some exertional dyspnea. She states she seen her PCP today where she was hypoxic there and was sent here her blood pressure here is high does have a history hypertension her pulse ox here is 95% on room air. She denies any dyspnea at rest she denies having any chest pain does have a history of CHF is on Lasix 20 mg a day. Associated symptoms: Deny abdominal pain, chest pain, fever(s), nausea or vomiting Related Data Home Medications Medication Instructions Recorded Confirmed simvastatin 20 mg tablet 20 mg PO BEDTIME 05/25/20 06/28/24 cholecalciferol (vitamin D3) 125 125 mcg PO DAILY 10/28/20 06/28/24 mcg (5,000 unit) capsule cetirizine 10 mg tablet (Zyrtec) 10 mg PO DAILY PRN Itching 06/08/21 06/28/24 sertraline 25 mg tablet 25 mg PO DAILY 10/26/21 06/28/24 fluticasone propionate 50 1 spray intranasal BID 12/06/21 06/28/24 mcg/actuation nasal spray,suspension (Flonase Allergy Relief) gabapentin 100 mg capsule 200 mg PO BEDTIME 05/16/22 06/28/24 denosumab 60 mg/mL subcutaneous 60 mg SUBCUT .[id number] 06/28/24 06/28/24 syringe (Prolia) droxidopa 200 mg capsule 200 mg PO TID 06/28/24 06/28/24 estradiol 0.01% (0.1 mg/gram) See Rx Instructions .Route .COMPLEX 06/28/24 06/28/24 vaginal cream (Estrace) furosemide 20 mg tablet 20 mg PO DAILY 06/28/24 06/28/24 losartan 25 mg tablet See Rx Instructions .Route 06/28/24 06/28/24 .COMPLEX PRN Blood Pressure meclizine 25 mg tablet 25 mg PO Q6H PRN Dizziness Or 06/28/24 06/28/24 Vertigo potassium chloride 20 mEq 20 meq PO BID 06/28/24 06/28/24 tablet,extended release(part/cryst) (Klor-Con M) tamsulosin 0.4 mg capsule 4 mg PO BEDTIME 06/28/24 06/28/24 Previous Rx's Medication Instructions Recorded topiramate 25 mg tablet 25 mg PO DAILY #30 tabs 03/05/24 Allergies Allergy/AdvReac Type Severity Reaction Status Date / Time levofloxacin [From Levaquin] Allergy Unknown Verified 03/19/24 11:40 Review of Systems 2 Const: Denies: fever(s), chills, body aches or change in appetite Eyes: Denies: blurry vision or eye discomfort ENMT: Denies: throat pain or dental pain Card: Denies: chest pain Resp: Reports: dyspnea GI: Denies: abdominal pain, nausea, vomiting or diarrhea : Denies: dysuria Musc: Denies: neck pain or back pain Skin/Breast: Denies: rash Neuro: Denies: headache(s) PFSH ED 2 PFSH: Medical History Recurrent UTI Coronary artery disease Interstitial lung disease -noted evidence of interstitial fibrosis on imaging -has required supplemental oxygen support due to hypoxia -qualifies for 2 L NC on d/c Chronic diastolic CHF (congestive heart failure) -Echo: EF=71%, no RWMA, mild LVH, G1DD, trace MR, trace TR, trace VT Depression Orthostasis Recurrent syncope Vitamin D deficiency Seizures -has been following up with Dr. Rebolledo (Neurology) at [facility] -on [facility] -seizure precautions Hypertension Anxiety Orthostatic syncope Surgical History H/O colonoscopy H/O shoulder surgery History of open reduction and internal fixation (ORIF) procedure right distal radius. H/O shoulder surgery H/O knee surgery H/O: hysterectomy S/P cholecystectomy S/P appendectomy Family History Mother , AT AGE 89 Congestive heart failure (CHF) Father , AT AGE 56 CAD (coronary artery disease) Denies family history of Diabetes Hyperlipidemia Hypertension Stroke Social History Smoking and tobacco/nicotine status: never used tobacco/nicotine Alcohol intake: never Substance/Drug Use: never Household members: spouse Housing: House Marital status: Current occupational status: retired Physical Exam 2 Const: COMMON NORMALS: patient oriented x3 HENMT: COMMON NORMALS: normocephalic and atraumatic HEAD & SCALP: n ormocephalic and atraumatic Eye: COMMON NORMALS: conjunctivae normal CONJUNCTIVA: Yes conjunctivae normal Neck/C-Spine: COMMON NORMALS: full ROM and supple Chest: COMMONS NORMALS: normal inspection of the chest Resp: COMMON NORMALS: normal respiratory effort, No retractions, No use of accessory muscles and clear to auscultation bilaterally AUSCULTATION: clear to auscultation bilaterally Cardio: COMMON NORMALS: regular rate, regular rhythm and No murmurs present (Cardio) RATE: regular rate RHYTHM: regular rhythm Extremity: COMMON NORMALS: full ROM NARRATIVE EXTREMITY EXAM: 1+ edema Neuro: COMMON NORMALS: patient oriented x3, moves all extremities and no focal motor deficits Psych: COMMON NORMALS: mental status grossly normal, Normal thought process present and cooperative THOUGHT PROCESS: Normal thought process present Skin: COMMON NORMALS: no rashes or lesions noted and no wounds GENERAL SKIN EXAM: no rashes or lesions noted Course 2 Vital Signs: Vital signs: Vital Signs Temperature 97.6 F 06/28/24 09:52 Pulse Rate 87 06/28/24 11:15 Respiratory Rate 19 H 06/28/24 09:56 Blood Pressure 187/109 06/28/24 09:56 Pulse Oximetry 91 06/28/24 11:15 Oxygen Delivery Me thod Room Air 06/28/24 11:15 MDM - SOB/Dyspnea Medical Decision Making Patient presents with dyspnea along with some hypoxia she required 2 L here when walking did qualify for 2 L I did offer her admission. She states she feels fine and would like to go home on oxygen CT chest was normal no signs of PE no signs of pneumonia she is continue her Lasix. Medical Records I reviewed the patient's medical records. Lab Data I reviewed the patient's lab results. 06/28/24 09:58 06/28/24 09:58 Labs/Radiology: Radiology Impressions Chest X-Ray 06/28/24 09:50 IMPRESSION: 1. Chronic changes, no acute process. Chest CTA 06/28/24 10:48 IMPRESSION: 1. Suspect interstitial fibrosis with mild superimposed interstitial edema. 2. Few small as well as borderline enlarged mediastinal lymph nodes most likely reactive. Laboratory Results WBC 6.69 10^3/uL (3.29-11.43) 06/28/24 09:58 RBC 4.29 10^6/uL (3.85-5.65) 06/28/24 09:58 Hgb 13.30 g/dL (11.27-16.99) 06/28/24 09:58 Hct 40.8 % (36-47) 06/28/24 09:58 MCV 95.1 fl (85-98) 06/28/24 09:58 MCH 31.0 pg (27-33) 06/28/24 09:58 MCHC 32.6 g/dL (30-55) 06/28/24 09:58 RDW 12.9 % (12.1-15.1) 06/28/24 09:58 Plt Count 261 10^3/cmm (157-399) 06/28/24 09:58 MPV 9.5 fL (7.4-10.4) 06/28/24 09:58 Neut % (Auto) 64.9 % 06/28/24 09:58 Lymph % (Auto) 21.7 % 06/28/24 09:58 Payne % (Auto) 8.7 % 06/28/24 09:58 Eos % (Auto) 3.4 % 06/28/24 09:58 Baso % (Auto) 1.0 % 06/28/24 09:58 Neut # (Auto) 4.34 10^3/uL (1.8-7.7) 06/28/24 09:58 Lymph # (Auto) 1.5 10^3/uL (0.8-4.8) 06/28/24 09:58 Payne # (Auto) 0.6 10^3/uL (0.2-0.9) 06/28/24 09:58 Eos # (Auto) 0.2 10^3/uL (0.0-0.8) 06/28/24 09:58 Baso # (Auto) 0.1 10^3/uL (0.0-0.1) 06/28/24 09:58 Nucleated RBC % (auto) 0 % 06/28/24 09:58 Nucleated RBCs # 0.0 /100WBC 06/28/24 09:58 Sodium 139 mmol/L (136-145) 06/28/24 09:58 Potassium 4.1 mmol/L (3.5-5.1) 06/28/24 09:58 Chloride 103 mmol/L (98-107) 06/28/24 09:58 Carbon Dioxide 24 mmol/L (22-29) 06/28/24 09:58 Anion Gap 16.1 (5-19) 06/28/24 09:58 BUN 17 mg/dL (8-23) 06/28/24 09:58 Creatinine 1.2 mg/dL (0.5-0.9) H 06/28/24 09:58 GFR Calculation Not Reportable 06/28/24 09:58 Glucose 114 mg/dL (65-115) 06/28/24 09:58 Calculated Osmolality 290 mOsm/kg (285-295) 06/28/24 09:58 Calcium 9.2 mg/dL (8.5-10.5) 06/28/24 09:58 Total Bilirubin 0.5 mg/dL (0.15-1.2) 06/28/24 09:58 AST 23 U/L (0-32) 06/28/24 09:58 ALT 9 U/L (0-33) 06/28/24 09:58 Alkaline Phosphatase 79 U/L (35-105) 06/28/24 09:58 Troponin T Baseline 27 ng/L (0-10) H 06/28/24 09:58 NT-Pro-B Natriuret Pep 272 pg/mL (0-450) 06/28/24 09:58 Total Protein 7.4 g/dL (6.6-8.7) 06/28/24 09:58 Albumin 4.2 g/dL (3.5-5.2) 06/28/24 09:58 Globulin 3.2 g/dL (1.3-4.6) 06/28/24 09:58 Coronavirus (PCR) Negative (Negative) 06/28/24 10:23 Influenza A (PCR) Negative (Negative) 06/28/24 10:23 Influenza Type B (PCR) Negative (Negative) 06/28/24 10:23 RSV (PCR) Negative (Negative) 10/25/24 10:23 All radiology interpretation(s) finalized by discharge EKG Data EKG 1: I personally reviewed and interpreted this EKG as follows: EKG Interpretation Date: 06/28/24 EKG interpretation time: 10:21 Interpretation: nsr hr [address] or t wave abnormalities qrs 72 qtc 405 Discharge Plan Discharge Patient Disposition: Home Clinical Impression: Dyspnea Condition: Stable Prescriptions: No Action cetirizine [Zyrtec] 10 mg tablet 10 mg PO DAILY PRN (Reason: Itching) sertraline 25 mg tablet 25 mg PO DAILY cholecalciferol (vitamin D3) 125 mcg (5,000 unit) capsule 125 mcg PO DAILY fluticasone propionate [Flonase Allergy Relief] 50 mcg/actuation spray,suspension 1 spray intranasal BID Rx Instructions: administer into each nostril gabapentin 100 mg capsule 200 mg PO BEDTIME topiramate 25 mg tablet 25 mg PO DAILY Qty: 30 0RF simvastatin 20 mg tablet 20 mg PO BEDTIME droxidopa 200 mg capsule 200 mg PO TID potassium chloride [Klor-Con M20] 20 mEq tablet,ER particles/crystals 20 meq PO BID losartan 25 mg tablet See Rx Instructions .ROUTE .COMPLEX PRN (Reason: Blood Pressure) Rx Instructions: TAKE 1 TABLET BY MOUTH ONCE DAILY ( NEEDED IF BLOOD PRESSURE GOES UP 180 SYSTOLIC AND 100 DIASTOLIC) furosemide 20 mg tablet 20 mg PO DAILY Rx Instructions: Take 1 tablet by mouth once daily tamsulosin 0.4 mg capsule 4 mg PO BEDTIME meclizine 25 mg tablet 25 mg PO Q6H PRN (Reason: Dizziness Or Vertigo) estradiol [Estrace] 0.01 % (0.1 mg/gram) Cream See Rx Instructions .ROUTE .COMPLEX Rx Instructions: apply dime size amount with finger to uretha everyday for 14 days,then MWF ,Do Not Use Plunger Prolia 60 mg/mL Syringe 60 mg SUBCUT .[id number] Discharge Orders: Discharge ED (Routine); Ordered 06/28/24 Ordered By: Vaibhav Fraire Other Ambulatory Orders: DME: Oxygen (Order) Location: None Selected Ordered By: Vaibhav Fraire Referrals: Dedra Espino MD [Primary Care Provider] - 4-7 days Discharge Diet: Advance as tolerated Discharge Activity: Resume usual activity Patient Instructions: Dyspnea (ED) Coding Level of Care Code ED Agriculture Engineer for Chg Fwveena
[2024-06-28 10:05] LABS: Basophils # 0.1 10^3/uL (0.0-0.1); Eosinophils # 0.2 10^3/uL (0.0-0.8); Eosinophils % 3.4 %; Hematocrit 40.8 % (36-47); Lymphocytes # 1.5 10^3/uL (0.8-4.8); Lymphocytes % 21.7 %; Mean Corpuscular HGB Conc 32.6 g/dL (30-55); Mean Corpuscular Volume 95.1 fl (85-98); Mean Platelet Volume 9.5 fL (7.4-10.4); Monocytes # 0.6 10^3/uL (0.2-0.9); Monocytes % 8.7 %; Neutrophils # 4.34 10^3/uL (1.8-7.7); Neutrophils % 64.9 %; Nucleated Red Blood Cells % 0 %; Platelet Count 261 10^3/cmm (157-399); Red Blood Count 4.29 10^6/uL (3.85-5.65); Red Cell Distribution Width 12.9 % (12.1-15.1); White Blood Count 6.69 10^3/uL (3.29-11.43)
[2024-06-28] MEDS: FUROsemide 10 mg/mL SDV 10mL 60 MG IVP (10:17)
--- NOTE | 2024-06-28 10:21 | ECG_ITS ---
[facility] Test Date: 2024-06-28 Pat Name: Leatha Malin Department: Room: Gender: Female Form Setter: : 1940 Requested By: Vaibhav Fraire Order Number: [id number] Daylin MD: Scarlett Nolen M.D. Measurements Intervals Mck[place] Rate: 86 P: 43 TX: 174 QRS: 3 QRSD: 72 T: -7 QT: 362 QTc: 433 Interpretive Statements SINUS RHYTHM LOW QRS VOLTAGE IN PRECORDIAL LEADS [QRS DEFLECTION < 1.0 mV IN CHEST LEADS] POSSIBLE ANTERIOR MYOCARDIAL INFARCTION , OF INDETERMINATE AGE [30 ms Q WAVE IN V3/V4, OR R < 0.2 mV IN V4] Compared to ECG 05/26/2020 08:33:11 Low QRS voltage now present Myocardial infarct finding still present Electronically Signed On 07-01-2024 00:01:01 CDT by Scarlett Nolen M.D. [email or web address]
[2024-06-28 10:31] LABS: Alanine Aminotransferase 9 U/L (0-33); Albumin Level 4.2 g/dL (3.5-5.2); Alkaline Phosphatase 79 U/L (35-105); Anion Gap 16.1 (5-19); Aspartate Amino Transferase 23 U/L (0-32); Blood Urea Nitrogen 17 mg/dL (8-23); Calcium 9.2 mg/dL (8.5-10.5); Carbon Dioxide 24 mmol/L (22-29); Chloride 103 mmol/L (98-107); Creatinine Clr Calc Pharmacy 32.8236; Globulin 3.2 g/dL (1.3-4.6); Glucose 114 mg/dL (65-115); NT Pro B Type Natriuretic Pept 272 pg/mL (0-450); Osmolality Calculated 290 mOsm/kg (285-295); Potassium 4.1 mmol/L (3.5-5.1); Sodium 139 mmol/L (136-145); Total Bilirubin 0.5 mg/dL (0.15-1.2); Total Protein 7.4 g/dL (6.6-8.7)
--- NOTE | 2024-06-28 10:48 | CTR_ITS ---
PROCEDURE INFORMATION: Exam: CTA Chest With Contrast Exam date and time: 06/28/2024 11:05 AM Age: 83 years old Clinical indication: Shortness of breath; Additional info: SOB TECHNIQUE: Imaging protocol: Computed tomographic angiography of the chest with contrast. Exam focused on the arteries. 3D rendering (Not supervised by radiologist): MIP and/or 3D reconstructed images were created by the technologist. Radiation optimization: All CT scans at this facility use at least one of these dose optimization techniques: automated exposure control; mA and/or kV adjustment per patient size (includes targeted exams where dose is matched to clinical indication); or iterative reconstruction. Contrast material: OMNI 350; Contrast volume: 60 ml; Contrast route: INTRAVENOUS (IV); COMPARISON: CT angio chest PE protcl [id number] 03/31/2020 5:00 AM RADIATION DOSE METRICS: Total DLP (mGy-cm): 113.11 FINDINGS: Pulmonary arteries: Normal. No pulmonary emboli. Aorta: The thoracic aorta is normal in caliber without aneurysm formation. There is calcified plaque involving the aorta and coronary vessels. Please note that the aorta is not opacified to the extent necessary to confidently evaluate for an aortic dissection. Lungs: There is subpleural reticulation with scattered areas of honeycombing. Minimal bronchiectasis is noted at the lung bases. Findings are likely related to interstitial lung disease such as pulmonary fibrosis. There does appear to be superimposed mild septal thickening with mild peribronchial thickening likely related to mild edema. No consolidation is appreciated. Pleural spaces: Unremarkable. No pneumothorax. No pleural effusion. Heart: Unremarkable. No cardiomegaly. No pericardial effusion. Lymph nodes: There are multiple small as well as a few borderline enlarged mediastinal lymph nodes. Diaphragm: There is a small hiatal hernia. Bones/joints: Unremarkable. No acute fracture. Soft tissues: Unremarkable. CT/CT angio chest PE protcl [id number] IMPRESSION: 1. Suspect interstitial fibrosis with mild superimposed interstitial edema. 2. Few small as well as borderline enlarged mediastinal lymph nodes most likely reactive.
[2024-06-28 11:10] LABS: Covid PCR NEGATIVE (Negative); Influenza A NEGATIVE (Negative); Influenza B NEGATIVE (Negative); Respiratory Syncytial Virus Ce NEGATIVE (Negative)
[2024-06-28 11:15] VITALS: PULSE 87; O2SAT 91
[2024-06-28] MEDS: iohexol 350 mg/mL 500 mL Btl (per mL) IV (11:17)
[2024-06-28 11:51] LABS: Troponin(5th) Baseline 27 ng/L (0-10)
[2024-06-28 12:16] LABS: Troponin 5 2HR 23.17 ng/L (0-10)
[2024-06-28 12:17] LABS: Troponin 5 2HR Delta -3.83 ABS# (0-10)
[2024-06-28 12:30] VITALS: BP 152/105; PULSE 88; O2SAT 94
[2024-06-28 12:31] VITALS: O2SAT 79; O2SAT 91; O2SAT 95
== END 2024-06-28 12:51 | disposition home or self-care (01) ==
PROVIDERS: Emergency Provider Emergency Medicine; PCP Family Medicine
DX: R06.09 Other forms of dyspnea (principal); I11.0 Hypertensive heart disease with heart failure; I50.9 Heart failure, unspecified; Z79.899 Other long term (current) drug therapy
CPT/HCPCS: 0241U; 71045; 71275; 80053; 83880; 84484; 85025; 93005; 94760; 96374; 99285; J1940

== ENCOUNTER → 2024-07-23 09:36 | Outpatient (BNVA) | payer MEDICARE, SELFPAY | PROVIDERS: PCP Family Medicine; Visit Provider Nurse Practitioner Family | DX: I25.119 Atherosclerotic heart disease of native coronary artery with unspecified angina pectoris (principal); I95.1 Orthostatic hypotension; I50.32 Chronic diastolic (congestive) heart failure; I47.10 Supraventricular tachycardia, unspecified; E78.5 Hyperlipidemia, unspecified; I25.10 Atherosclerotic heart disease of native coronary artery without angina pectoris | CPT/HCPCS: 99214 ==

== ENCOUNTER 2024-08-21 08:40 | Outpatient (CLI) | payer MEDICARE, SELFPAY ==
[2024-08-21 09:09] VITALS: BMI 26.5
--- NOTE | 2024-08-21 09:09 | ECG_ITS ---
[employer] Test Date: 2024-08-21 Pat Name: Leatha Malin Department: Room: Gender: Female Limited Radiology Technician: : 1940 Requested By: Asha Mckeon Order Number: [id number] Daylin MD: Scarlett Nolen M.D. Interpretive Statements PROCEDURE: At the baseline, the EKG revealed normal sinus rhythm with possible old inferior wall OH. Some nonspecific T wave changes. The baseline heart was 85 bpm with a blood pressue of 191/101 mm of Hg Lexiscan was infused over a period of 20 seconds. A total of 0.4 milligrams of Lexiscan was infused. The stress phase was continued for a total of 5 minutes. Heart rate at the end of the stress phase was 93 bpm with a blood pressure 185/99 mm of Hg. The EKG at the peak infusion revealed no significant changes. Sestamibi was injected 20 seconds after the Lexiscan infusion. Heart rate at the end of the recovery phase was 93 bpm with a blood pressure of 176/98 mm of Hg. CONCLUSION: 1. No significant EKG changes with the LexiScan infusion 2. No LexiScan induced chest pain or cardiac arrhythmia 3. Normal blood pressure and heart rate response 4. Sestamibi/sestamibi perfusion scan pending; see separate report. Electronically Signed On 08-23-2024 12:26:59 POT OPERATOR by Scarlett Nolen M.D. [email or web address]
--- NOTE | 2024-08-21 09:10 | NMCV_ITS ---
NM juan perf SPECT r/s* [id number] Leatha Malin Age: 84 Gender: F : 1940 Exam Date: 08/21/2024 09:10 Ordering Phys: Asha Mckeon Technologist: CHACE Glass Exam Location: [facility] Indications: cp STRESS TEST Please see separate stress test report in [facility] for full findings IMAGE PROTOCOL Rest/Stress 1 Lexiscan Day Radiopharmaceutical Dose (mCi) Administration Site Administered by Rest: Tc-99m 10.9 IV CHACE Glass Sestamibi Stress:Tc-99m 32 IV CHACE Hewitt Sestamibi Rest: 21-Aug-2024 60 Discovery 630 Stress: 21-Aug-2024 30 Discovery 630 0.4mg Lexiscan. Supine position only as patient was unable to lay prone. SPECT RESULTS Technical Quality: Good Raw Data Analysis: Normal Image Corrections: No attenuation or motion correction applied Summed Stress Score: 3 Summed Rest Score: 4 Summed Difference Score: 0 PERFUSION FINDINGS Small area of moderately decreased tracer uptake was noted in the mid inferolateral and apical lateral region. No significant reversibility was noted in this area. FUNCTIONAL RESULTS (calculated via Gated SPECT) Stress Image LV EF (%): 78 Stress EDV (mL):55 TID: 0.77 Stress ESV (mL):12 FUNCTIONAL FINDINGS: Segmental wall motion analysis revealing no gross wall motion abnormalities IMPRESSIONS 1. Myocardial perfusion imaging revealing small area of moderately decreased persistent tracer uptake in the inferolateral and apical lateral regions suggesting myocardial scarring versus attenuation artifact 2. Normal LV ejection fraction 78%. 3. LV wall motion analysis revealing no gross wall motion abnormalities. 4. Normal LV volume Low probability for coronary ischemia, based on the above findings Dr Scarlett Nolen MD [facility] (Electronically Signed) Final Date: 21 August 2024 13:15 S
[2024-08-21] MEDS: regadenoson 0.4 Mg/5 ml Syringe IVP (10:14)
[2024-08-21 10:27] VITALS: BP 176/98; PULSE 94
== END 2024-08-21 08:41 | disposition home or self-care (01) ==
LOC: CDL 08:42
PROVIDERS: PCP Family Medicine; Visit Provider Nurse Practitioner Family
DX: I50.32 Chronic diastolic (congestive) heart failure (principal); I25.119 Atherosclerotic heart disease of native coronary artery with unspecified angina pectoris; I10 Essential (primary) hypertension
CPT/HCPCS: 36415; 78452; 93017; 96374; 99214; A9500; J2785

== ENCOUNTER 2024-08-21 13:47 | Oncology outpatient (recurring) (ONCR) | payer MEDICARE, SELFPAY ==
--- NOTE | 2024-08-21 14:15 | USCV_ITS ---
Leatha Malin Age: 84 Gender: F : 1940 Exam Date: 08/21/2024 14:05 Ordering Phys: Asha Mckeon Technologist: CT Exam Location: [facility] [place], [place] Indication: BP: 160 / 100 HR: 70 Rhythm: Sinus Technical Quality: Adequate MEASUREMENTS (Male / Female) Normal Values 2D ECHO LVOT Diameter 2.0 cm LV Ejection Fraction MOD 4C 66.8 % LV Ejection Fraction MOD 2C 64.4 % LV Ejection Fraction 2C AL 63.2 % LA Diameter 2.8 cm RA Systolic Volume 4C AL 21.6 ml RA Systolic Volume 4C MOD 22.7 ml LA Sys Volume AL 59.6 cm cubed LA Sys Volume Index AL 34.7 cm cubed/m squared Aorta at Sinotubular Diameter 2.3 cm IVC Diameter 2.2 cm M-MODE LA Ao Ratio MM 1.3 AV Cusp Separation MM 1.6 cm DOPPLER AV Peak Velocity 127.0 cm/s LVOT Peak Velocity 89.0 cm/s AV Area Cont Eq vti 2.2 cm squared AV Area Cont Eq pk 2.2 cm squared MV Peak Velocity 114.0 cm/s MV Area PHT 3.1 cm squared Mitral E to A Ratio 0.6 TR Peak Velocity 131.5 cm/s TR Peak Gradient 6.9 mmHg TR Mean Velocity 90.0 cm/s TR Mean Gradient 3.9 mmHg TR Velocity Time Integral 29.3 cm TV Peak E Velocity 56.0 cm/s PV Peak Velocity 89.5 cm/s FINDINGS Left Ventricle Normal left ventricular size and systolic function, EF 65%.mild left ventricular hypertrophy. No regional wall motion abnormalities. Grade I/IV diastolic dysfunction (abnormal relaxation filling pattern), normal to mildly elevated filling pressures. Right Ventricle The right ventricle is normal in size and function. Right Atrium The right atrium is normal in size. Left Atrium The left atrium is normal in size. Mitral Valve Moderate mitral annular calcification. Aortic Valve Thickened aortic valve. Tricuspid Valve Trace tricuspid valve regurgitation. Estimated pulmonary artery peak systolic pressure within normal limits Pulmonic Valve Pulmonic valve not well visualized. Pericardium Normal pericardium without effusion. Aorta Mild diffuse plaque in the ascending aorta IVC The inferior vena cava appears normal. CONCLUSIONS Normal left ventricular size and systolic function, EF 65%.mild left ventricular hypertrophy. No regional wall motion abnormalities. Grade I/IV diastolic dysfunction (abnormal relaxation filling pattern), normal to mildly elevated filling pressures. Normal cardiac chamber sizes There is no pericardial effusion. There are no intracardiac masses. Compared to the study from 03/31/2020, there may not be a significant change Dr Scarlett Nolen MD [facility] (Electronically Signed) Final Date: 29 August 2024 17:31 S
== END 2024-09-03 23:59 | disposition home or self-care (01) ==
PROVIDERS: PCP Family Medicine; Visit Provider Family Medicine
DX: I25.119 Atherosclerotic heart disease of native coronary artery with unspecified angina pectoris (principal); I50.32 Chronic diastolic (congestive) heart failure
CPT/HCPCS: 93306

== ENCOUNTER → 2025-01-22 09:06 | Outpatient (BNVA) | payer MEDICARE, SELFPAY | PROVIDERS: PCP Family Medicine; Visit Provider Internal Medicine | DX: I11.0 Hypertensive heart disease with heart failure (principal); I50.30 Unspecified diastolic (congestive) heart failure; I48.0 Paroxysmal atrial fibrillation; I95.1 Orthostatic hypotension; R51.9 Headache, unspecified | CPT/HCPCS: 99214 ==

== ENCOUNTER 2025-04-16 14:44 | Outpatient (CLI) | payer MEDICARE, SELFPAY ==
--- NOTE | 2025-04-16 14:50 | MR_ITS ---
WS: [id number] MRI BRAIN WITH AND WITHOUT CONTRAST HISTORY: HEADACHE/TINNITUS/OTALGIA/DIZZINESS GIDDINESS COMPARISON: 05/21/2018 TECHNIQUE: Multiplanar imaging performed through the brain with MultiHance 14 ml's IV. No acute infarcts are seen. Osorio-white matter differentiation is well preserved. Moderate to severe bilateral symmetric cerebral and cerebellar atrophy has progressed since 2018. Increase in amount of confluent and patchy T2 and FLAIR signal hyperintensities in the supratentorial white matter. Bilateral ischemic change within the ifeoma. Tiny lacunar infarct RIGHT cerebellum. Bilateral lacunar infarcts in the caudate heads and RIGHT basal ganglia. These lacunar infarcts are new since 2018. Severe hippocampal atrophy. No hemorrhage. Ventricles and extra-axial spaces are prominent on the basis of atrophy. Clivus and pituitary gland are normal. Visualized posterior fossa and brainstem are also normal. Postcontrast images are negative for masses or vascular malformations. Dural venous sinuses are normal. Filling defect in the far lateral RIGHT transverse sinus is probably an arachnoid granulation. Paranasal sinuses: Well aerated with no significant disease. Mastoid air cells: Normal. Calvarium and scalp: Normal. MR/MR head wo/w con [id number] IMPRESSION: 1. No acute infarct or hemorrhage. 2. Moderate to severe cerebral and cerebellar atrophy has progressed since 201 8. 3. Severe hippocampal atrophy. 4. Increased in white matter disease since 2018 and small lacunar infarcts as above. 5. No enhancing masses.
[2025-04-16] MEDS: gadobenate dimeglumine 20 mL vial IV (15:53)
== END 2025-04-16 14:45 | disposition home or self-care (01) ==
LOC: RAD 14:47
PROVIDERS: PCP Family Medicine; Visit Provider Nurse Practitioner Family
DX: R42 Dizziness and giddiness (principal); G31.89 Other specified degenerative diseases of nervous system; R90.82 White matter disease, unspecified
CPT/HCPCS: 70553

== ENCOUNTER → 2025-07-23 14:06 | Outpatient (BNVA) | payer MEDICARE, SELFPAY | PROVIDERS: PCP Family Medicine; Visit Provider Internal Medicine | DX: R51.9 Headache, unspecified (principal); G89.29 Other chronic pain; I10 Essential (primary) hypertension; I48.0 Paroxysmal atrial fibrillation; I95.1 Orthostatic hypotension | CPT/HCPCS: 99213 ==

== ENCOUNTER 2025-09-01 16:44 | Outpatient (CLI) | payer MEDICARE, SELFPAY ==
--- NOTE | 2025-09-01 16:51 | XR_ITS ---
WS: [id number] Lumbar spine, 5 views including both obliques, 09/01/2025 Clinical Data: LUMBAR SPINE PAIN Comparison: Lumbar spine, 02/08/2019 Findings: The compression fractures of T12 and L1 remain the same. There is disc space narrowing at all lumbar levels L2-L3 through L5-S1. There is osteoarthritis and osteoporosis. The oblique images show no spondylolysis. There is a levoscoliosis. Abdominal aorta shows uncoiling with calcification in the wall but no aneurysm. The SI joints and transverse processes show no abnormalities. There are cholecystectomy clips in the right upper quadrant. XR/XR lumbar spine min 4V [id number] Impression: 1. No change in T12 and L1 compression fractures. 2. No spondylolysis on oblique images. 3. Osteoporosis and osteoarthritis of all the lumbar vertebral bodies.
--- NOTE | 2025-09-01 16:52 | XR_ITS ---
WS: [id number] Right hand, AP and lateral views, 09/01/2025 Clinical Data: RIGHT HAND PAIN Comparison: Right wrist, 07/08/2020 Findings: No new fractures or dislocations are seen. The soft tissues are unremarkable. The IP joints of the thumb and fingers show osteoarthritis. All the MCP joints show mild osteoarthritis. The internal fixation of the distal right radial fracture an unfused ulnar styloid fracture are visible. XR/XR hand RT 2V [id number] Impression: 1. 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 2. Osteoarthritis of the MCP joints of the thumb and fingers.
== END 2025-09-01 16:45 | disposition home or self-care (01) ==
LOC: RAD 16:47
PROVIDERS: PCP Nurse Practitioner Family; Visit Provider Nurse Practitioner Family
DX: M19.041 Primary osteoarthritis, right hand (principal); Z96.698 Presence of other orthopedic joint implants; I70.0 Atherosclerosis of aorta; Z90.49 Acquired absence of other specified parts of digestive tract; Z98.890 Other specified postprocedural states; M41.86 Other forms of scoliosis, lumbar region; M51.362 Other intervertebral disc degeneration, lumbar region with discogenic back pain and lower extremity pain; M47.9 Spondylosis, unspecified; M81.0 Age-related osteoporosis without current pathological fracture
CPT/HCPCS: 72110; 73120